=== PATIENT | female | born 1965 | race African-American/Black ===

== ENCOUNTER 2018-10-02 10:16 | Observation (INO) | payer OTHER ==
[2018-10-02 10:48] LABS: BILIRUBIN,URINE NEGATIVE (NEGATIVE); GLUCOSE, URINE (UA) NEGATIVE (NEGATIVE); KETONES,URINE (UA) NEGATIVE (NEGATIVE); LEUKOCYTE ESTERASE, URINE NEGATIVE (NEGATIVE); NITRITE,URINE NEGATIVE (NEGATIVE); OCCULT BLOOD,URINE NEGATIVE (NEGATIVE); PH,URINE 6.5 PH (5.0-7.5); PROTEIN,URINE NEGATIVE (NEGATIVE); UROBILINOGEN,URINE 0.2 (NORMAL) E.U./dL (NORMAL)
[2018-10-02 10:50] LABS: CLARITY,URINE CLEAR (CLEAR)
[2018-10-02 11:36] LABS: BASOPHILS % (AUTO) 0.3 %; EOSINOPHILS # (AUTO) 0.2 10^3/uL (0.0-0.7); EOSINOPHILS % (AUTO) 1.9 %; HGB - HEMOGLOBIN 8.8 g/dL (12.0-16.0); LYMPHOCYTES # (AUTO) 1.2 10^3/uL (1.5-3.5); LYMPHOCYTES % (AUTO) 14.6 %; MEAN CORPUSCULAR HEMOGLOBIN 24.2 pg (27.0-31.0); MEAN CORPUSCULAR HGB CONC 31.5 g/dL (32.0-36.0); MEAN CORPUSCULAR VOLUME 76.8 fL (81.0-99.0); MEAN PLATELET VOLUME 9.5 fL (7.9-10.8); MONOCYTES # (AUTO) 0.8 10^3/uL (0.0-1.0); MONOCYTES % (AUTO) 9.7 %; NEUTROPHILS # (AUTO) 6.2 10^3/uL (1.5-6.6); NEUTROPHILS % (AUTO) 73.5 %; PLT - PLATELET COUNT 260 10^3/uL (130-450); RED BLOOD COUNT 3.62 10^6/uL (4.20-5.40); RED CELL DISTRIBUTION WIDTH 18.6 % (12.0-15.0); WHITE BLOOD COUNT 8.5 x10^3/uL (4.8-10.8)
[2018-10-02 11:52] LABS: ALBUMIN 4.3 g/dL (3.2-5.5); ALBUMIN/GLOBULIN RATIO 1.3 (1.0-2.2); BILIRUBIN,TOTAL 0.5 mg/dL (0.2-1.0); CALCIUM 9.3 mg/dL (8.5-10.3); CREATININE 0.6 mg/dL (0.4-1.0); TOTAL PROTEIN 7.7 g/dL (6.7-8.2)
[2018-10-02] MEDS ORDERED: HYDROmorphone 1 MG/ML CARPUJECT IVP STA ×3 (11:53→16:40)
[2018-10-02] MEDS ORDERED: ONDANSETRON 4 MG/2 ML VIAL IVP STA (11:53)
--- NOTE | 2018-10-02 11:55 | ED Physician Documentation ---
PD HPI ABD PAIN - Stated complaint Stated Complaint: NAUSEA - Chief complaint Chief Complaint: Abd Pain - History obtained from History obtained from: Patient, Family - History of Present Illness Timing - onset: Yesterday Timing - duration: Days (1) Timing - details: Gradual onset, Still present Quality: Sharp, Fullness/distended, Pain Location: All over / everywhere Improved by: Laying still Worsened by: Moving, Breathing, Position, Palpation Associated symptoms: Nausea, Vomiting Similar symptoms before: Diagnosis (systemic sclerosis) Recently seen: Emergency Dept - Additional information Additional information: 52-year-old female with a history of systemic scleroderma has manifestation of her disease mostly in the gastrointestinal tract and she is on chronic TPN. She has episodes of obstruction with development of a significant amount of gas and she is brought a care plan with her from [place]. She usually has an NG tube placed and over several hours will decompress. She relates she usually is able to improve overnight and usually less than 24 hours. She reports that this morning she began vomiting and her stomach rapidly distended. This is very similar to what she has had previously normal she has a flat abdomen and she appears now 9 months . Review of Systems Constitutional: denies: Fever, Chills, Myalgias Eyes: denies: Decreased vision Ears: denies: Ear pain Nose: denies: Rhinorrhea / runny nose, Congestion Throat: denies: Sore throat Cardiac: denies: Chest pain / pressure, Palpitations Respiratory: denies: Dyspnea, Cough GI: reports: Abdominal Pain, Nausea, Vomiting. 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 HEENT: Tonsil/Adenoidectomy - Present Medications Home Medications: Ambulatory Orders Medication Instructions Recorded Confirmed Duloxetine HCl [Cymbalta] 60 mg PO 10/02/18 10/02/18 Gabapentin [Neurontin] 900 mg PO TID 10/02/18 10/02/18 LORazepam [Ativan] 1 mg 10/02/18 Leucovorin Calcium 5 mg PO 10/02/18 Losartan [Cozaar] 25 mg 10/02/18 Methotrexate Sodium/Pf 25 mg 10/02/18 [Methotrexate 25 mg/ml Vial] Prednisone 5 mg PO 10/02/18 amLODIPine [Norvasc] 10 mg 10/02/18 - Allergies Allergies/Adverse Reactions: Allergies Allergy/AdvReac Type Severity Reaction Status Date / Time No Known Drug Allergies Allergy Verified 10/02/18 10:30 - Social History Does the pt smoke?: No Smoking Status: Never smoker Does the pt drink ETOH?: No Does the pt have substance abuse?: No - Immunizations Immunizations are current?: Yes PD ED PE NORMAL - Vitals Vital signs reviewed: Yes (hypertensive ) - General General: Alert and oriented X 3, No acute distress, Well developed/nourished - HEENT HEENT: Atraumatic, PERRL, EOMI - Neck Neck: Supple, no meningeal sign, No bony TTP - Cardiac Cardiac: RRR, No murmur - Respiratory Respiratory: No respiratory distress, Clear bilaterally - Abdomen Abdomen: Other (The abdomen is markedly distended and tender. It is tight. She looks 9 months . ) - Back Back: No CVA TTP, No spinal TTP - Derm Derm: Normal color, Warm and dry, No rash - Extremities Extremities: No deformity, No edema - Neuro Neuro: Alert and oriented X 3, joy operator 2-12 intact, No motor deficit, No sensory deficit, Normal speech Eye Opening: Spontaneous Motor: Obeys Commands Verbal: Oriented GCS Score: 15 - Psych Psych: Normal mood, Normal affect Results - Vitals Vitals: Vital Signs - 24 hr 10/02/18 10/02/18 10/02/18 10:23 12:03 14:07 Temperature 36.6 C Heart Rate 90 84 90 Respiratory 20 16 12 Rate Blood Pressure 150/93 H 141/88 H 128/88 H O2 Saturation 100 100 100 Oxygen O2 Source Room air - Labs Labs: Laboratory Tests 10/02/18 10/02/18 10/02/18 10:30 11:07 11:07 WBC 8.5 RBC 3.62 L Hgb 8.8 L Hct 27.8 L MCV 76.8 L MCH 24.2 L MCHC 31.5 L RDW 18.6 H Plt Count 260 MPV 9.5 Neut # (Auto) 6.2 Lymph # (Auto) 1.2 L [place] # (Auto) 0.8 Eos # (Auto) 0.2 Baso # (Auto) 0.0 Absolute Nucleated RBC 0.00 Nucleated RBC % 0.0 Sodium 133 L Potassium 3.8 Chloride 98 L Carbon Dioxide 26 Anion Gap 9.0 BUN 16 Creatinine 0.6 Estimated GFR (MDRD) 128 Glucose 99 Calcium 9.3 Total Bilirubin 0.5 AST 30 ALT 11 Alkaline Phosphatase 56 Total Protein 7.7 Albumin 4.3 Globulin 3.4 Albumin/Globulin Ratio 1.3 Lipase 26 Urine Color DARK YELLOW Urine Clarity CLEAR Urine pH 6.5 Ur Specific [place] >=1.030 H Urine Protein NEGATIVE Urine Glucose (UA) NEGATIVE Urine Ketones NEGATIVE Urine Occult Blood NEGATIVE Urine Nitrite NEGATIVE Urine Bilirubin NEGATIVE Urine Urobilinogen 0.2 (NORMAL) Ur Leukocyte Esterase NEGATIVE Ur Microscopic Review NOT INDICATED Urine Culture Comments NOT INDICATED PD MEDICAL DECISION MAKING - ED course Complexity details: reviewed results, re-evaluated patient, considered differential, d/w patient, d/w family ED course: 52-year-old female with a history of systemic scleroderma has developed obstructive symptoms previous to what she has had before and similar to what she has had and here in the emergency department we have placed an NG tube to low intermittent suction and she has had some decompression of her abdomen. She is also received some pain medication and nausea medicine and she tells us that this will usually take about 12-15 hours to improve. She would like to stay here at this hospital if possible. Departure - Departure Disposition: ED Place in Observation Clinical Impression: Bowel obstruction Qualifiers: Intestinal obstruction type: obstruction due to adhesions Intestinal obstruction extent: partial Qualified Code(s): K56.51 - Intestinal adhesions [bands], with partial obstruction Condition: Stable
[2018-10-02] MEDS ORDERED: LIDOCAINE JELLY 2% 5 ML TUBE TOP STA (12:16)
[2018-10-02] MEDS ORDERED: HYDROmorphone 0.5 MG/0.5 ML SYRINGE IVP PRN (17:05)
[2018-10-02] MEDS ORDERED: PROCHLORPERAZINE 10 MG/2 ML VIAL IVP PRN (17:05)
[2018-10-02] MEDS ORDERED: D5NS W/20 MEQ KCL 1,000 ML IV SCH ×2 (18:00)
[2018-10-02] MEDS: SODIUM CHLORIDE FLUSH 0.9% 10 ML SYRINGE IVP SCH (18:54)
[2018-10-02] MEDS ORDERED: HYDROmorphone 1 MG/ML CARPUJECT IVP PRN (18:58)
--- NOTE | 2018-10-02 19:41 | XRAY Report ---
Reason: ng tube placement Procedure Date: 10/02/2018 Accession Number: [id number] / [id number] Procedure: XR - Chest 1 View X-Ray CPT Code: 94690 FULL RESULT: EXAM: CHEST RADIOGRAPHY EXAM DATE: 10/02/2018 07:21 PM. CLINICAL HISTORY: NG tube placement. COMPARISON: XR CHEST 1 VIEW AP/PA 09/23/2018 8:19 PM. TECHNIQUE: 1 view. FINDINGS: Lungs/Pleura: Persistent mild vascular congestion. Minimal platelike data steward this right lung base. Normal lung volumes. No pneumothorax. Mediastinum: Stable mild cardiomegaly. Stable right central line tip cavoatrial junction. No tracheal shift. Other: Interval placement of an NG tube with the tip barely in the gastric cardia. The sidehole of the NG tube is at the GE junction. IMPRESSION: 1. Recommend 5 cm further advancement of the NG tube. 2. Mild cardiomegaly. RADIA
--- NOTE | 2018-10-02 20:04 | HISTORY & PHYSICAL EXAMINATION ---
DATE OF SERVICE: 10/02/2018 Physician: Hortencia Leon MD HISTORY OF PRESENT ILLNESS: This is a 52-year-old black female with a history of hypertension, systemic scleroderma and anxiety. 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 She was visiting [facility] to see her brother, plans to be here for 6 days. The patient gets frequent exacerbations of small-bowel obstruction due to her scleroderma, which is mostly affecting her intestinal tract. Because of this, she has a "Morris plan" in place for management of the bowel obstruction, which includes an NG tube for decompression and parenteral management ,and resolution often occurs in 12-15 hours. The patient presented with abdominal pain, nausea, vomiting and rapid distention of her abdomen, which is her typical presentation of the SBO, and she presented to the emergency room. An NG tube has been placed in the ER and she is being put in Observation status for management of the SBO. It usually has improvement in less than 24 hours. PAST MEDICAL HISTORY: Systemic scleroderma, hypertension, anxiety, frequent small bowel obstructions. The patient has a central port, which got infected, she needed a PICC line temporarily and a new port has been placed that she has had for about a month. She is on TPN for about a month, which she infuses herself every 12 hours. ALLERGIES: NONE. MEDICATIONS 1. Amlodipine 10 mg daily. 2. Vitamin D3 daily. 3. Vitamin C daily. 4. Multivitamin with iron daily. 5. Vitamin B12 daily. 6. Theragran vitamin daily. 7. Biotin daily. 8. Senokot daily. 9. MiraLax daily. 10. Losartan 25 mg daily. 11. Ativan 1 mg b.i.d. p.r.n. anxiety. 12. Cymbalta 60 mg daily. 13. Prednisone 5 mg daily. 14. Methotrexate once a week 25 mg subcutaneous. 15. Leucovorin 5 mg p.o. daily. FAMILY HISTORY: No inherited diseases. SOCIAL HISTORY: The patient lives with her son, is currently visiting [facility] and has never been hospitalized in this hospital. The patient is a nonsmoker, who never smoked, drinks no alcohol, uses no illicit drugs. 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 REVIEW OF SYSTEMS: A comprehensive review of systems was performed and the pertinent positives are in the HPI, the rest are negative. PHYSICAL EXAMINATION GENERAL: Black female who is in mild distress currently; however, she states the pain is returning since the IV pain medications are wearing off that were given in the ER. Blood pressure 128/92, pulse 75, afebrile, room air saturation 100%. HEENT: Unremarkable. Oral mucosa is moist. NECK: Without JVD or carotid bruits. LUNGS: Clear. HEART: Sounds normal. ABDOMEN: Distended, moderately tense, has increased tympany and decreased bowel sounds. There is no guarding or rebound. EXTREMITIES: No leg edema. No cyanosis. 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 NEUROLOGIC: Grossly intact. LABORATORY DATA: Sodium 133, potassium 3.8. Normal BUN and creatinine and liver tests and lipase. White count 8.5, hemoglobin 8.8 with MCV of 76, RDW of 18 and normal platelet count of 260. No INR was done. Urinalysis shows specific gravity of greater than 1.030, but otherwise unremarkable. DIAGNOSTIC STUDIES: She had no imaging done or EKG done. IMPRESSION/DIAGNOSES 1. Small-bowel obstruction exacerbation. 2. Systemic scleroderma with mostly intestinal involvement, on Methotrexate and Leucovorin. 3. Hypertension. 4. Anxiety. 5. Anemia, microcytic, on Iron replacement. PLAN: Place the patient in Observation. Begin IV hydration. She may continue her TPN infusions, and will hold the IV fluids while she gets iv TPN for 12 hours. Continue with IV narcotics for pain control and iv antiemetics. Continue with an NG tube for GI decompression, and check its position by x-ray. She knows that after approximately 10-12 hours, we will clamp tube, give some oral fluids and assess if she has any residual or worsening of symptoms. Any medications that can be switched from p.o. to IV will be done, especially her steroid. CODE STATUS: FULL CODE. DEEP VENOUS THROMBOSIS PROPHYLAXIS: SCDs. ATTESTATION: The patient expect to be discharged or transferred to another facility within 96 hours: Yes. cc: Dr Martín Chairez TD: 10/02/2018 19:19 [facility]
[2018-10-02] MEDS: HYDROmorphone 1 MG/ML CARPUJECT IVP PRN ×2 (20:06→22:49)
[2018-10-02] MEDS: SODIUM CHLORIDE FLUSH 0.9% 10 ML SYRINGE IVP PRN ×2 (20:09→22:49)
[2018-10-02] MEDS: FAMOTIDINE 20 MG/50 ML 50 ML IV SCH (21:01)
[2018-10-02] MEDS: LORazepam 2 MG/ML VIAL IVP PRN (22:49)
[2018-10-02] MEDS: PHENOL THROAT SPRAY 177 ML MM PRN (22:50)
--- NOTE | 2018-10-02 23:40 | XRAY Report ---
Reason: ng tube placement Procedure Date: 10/02/2018 Accession Number: [id number] / [id number] Procedure: XR - Chest 1 View X-Ray CPT Code: 17009 FULL RESULT: EXAM: CHEST RADIOGRAPHY EXAM DATE: 10/02/2018 11:20 PM. CLINICAL HISTORY: NG tube placement. COMPARISON: CHEST 1 VIEW 10/02/2018 7:07 PM. TECHNIQUE: 1 view. FINDINGS: Lungs/Pleura: Minimal bibasilar atelectasis, otherwise no focal opacities evident. No pleural effusion. No pneumothorax. Mediastinum: Normal heart size for technique. Other: Stable right IJ line. NG tube advanced into the body of the stomach. IMPRESSION: NG tube advanced to the body of the stomach, otherwise no change. RADIA
[2018-10-03] MEDS: ENALAPRILAT 1.25 MG/ML VIAL IVP SCH ×4 (00:15→19:02)
[2018-10-03] MEDS: SODIUM CHLORIDE FLUSH 0.9% 10 ML SYRINGE IVP PRN ×7 (00:16→19:04)
[2018-10-03] MEDS: HYDROmorphone 1 MG/ML CARPUJECT IVP PRN ×6 (03:17→19:03)
[2018-10-03] MEDS ORDERED: CYANOCOBALAMIN 1,000 MCG/ML VIAL IM ONE (08:00)
[2018-10-03] MEDS ORDERED: POLYETHYLENE GLYCOL 3350 17 GM PACKET PO SCH (09:00)
[2018-10-03] MEDS ORDERED: DEXAMETHASONE 4 MG/ML VIAL IVP SCH (09:00)
[2018-10-03] MEDS ORDERED: ASCORBIC ACID IV SCH (09:00)
[2018-10-03] MEDS ORDERED: METHYLNALTREXONE 12 MG/0.6 ML VIAL SUBQ SCH (09:00)
[2018-10-03] MEDS ORDERED: LEUCOVORIN CALCIUM IV SCH (09:00)
[2018-10-03] MEDS: FAMOTIDINE 20 MG/50 ML 50 ML IV SCH (09:47)
[2018-10-03] MEDS: SODIUM CHLORIDE FLUSH 0.9% 10 ML SYRINGE IVP SCH ×2 (10:16→16:47)
[2018-10-03] MEDS: LORazepam 2 MG/ML VIAL IVP PRN (12:13)
[2018-10-03] MEDS: PHENOL THROAT SPRAY 177 ML MM PRN (12:16)
[2018-10-03] MEDS ORDERED: MIN OIL/DIMETHICON/COCONUT OIL 92 GM TUBE TOP PRN (12:25)
[2018-10-03] MEDS ORDERED: diphenhydrAMINE INJ 50 MG/ML VIAL IVP PRN (12:28)
[2018-10-03 15:43] VITALS: BP 115/70
--- NOTE | 2018-10-03 18:36 | Discharge Plan ---
Discharge Plan Disposition: 01 Home, Self Care Condition: Stable Activity Restrictions: Activity as Tolerated Shower Restrictions: No Driving Restrictions: No Additional Instructions or Follow Up instructions: Please resume all your medications and TPN schedule. Stay well hydrated. If you have new or worsening symptoms, return to the ER. No Smoking: If you smoke, Please STOP! Call for help.
--- NOTE | 2018-10-04 19:47 | DISCHARGE SUMMARY ---
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 The patient was visiting [facility] and developed abdominal pain, distention and presented to the emergency room. She has a history of systemic scleroderma and anxiety. She gets frequent exacerbations of small-bowel obstruction from her intestinal scleroderma and has a plan in place for management of bowel obstruction. She was placed in Observation for treatment of small-bowel obstruction, following her directions and the "Morris plan". HOSPITAL COURSE AND DISCHARGE DIAGNOSES 1. Small-bowel obstruction. The patient had NG tube placement for decompression with intermittent low suction. She described to us that this obstruction usually resolves after 12-15 hours and in fact the NG tube aided in decompressing her abdominal distention and was clamped, and she was able to tolerate liquids and discharged at that point. 2. Systemic scleroderma. The patient has had close followup for worsening and more frequent exacerbations and has the plan in place, which we followed. She no longer is able to eat solid foods, is on TPN via a central port. 3. Hypertension. The patient's p.o. losartan was changed to IV BAUTISTA inhibitor during her brief stay here. LABORATORY AND IMAGING: Reviewed and summarized above. ALLERGIES: NONE. MEDICATIONS AT TIME OF DISCHARGE: Unchanged from admission: 1. Amlodipine 10 mg daily. 2. Vitamin C daily. 3. Biotin. 4. Vitamin D3 daily. 5. Vitamin B12 daily. 6. Cymbalta 60 mg daily. 7. Neurontin 900 mg t.i.d. 8. Iron with vitamin C daily. 9. Leucovorin 5 mg daily. 10. Ativan 1 mg b.i.d. p.r.n. 11. Losartan 25 mg daily. 12. Methotrexate subcutaneous, unknown frequency. 13. Multivitamin daily. 14. MiraLax daily. 15. Prednisone 5 mg daily. 16. Senna b.i.d. CONDITION AT DISCHARGE: Stable. PHYSICAL EXAMINATION: VITAL SIGNS: Blood pressure 115/70, pulse 70, afebrile, room air saturation 100%. HEENT: Unremarkable. NECK: Without JVD or carotid bruits. CHEST: Clear. HEART: Sounds normal. ABDOMEN: Soft, nontender. Normal bowel sounds. EXTREMITIES: No edema. NEUROLOGIC: Intact. FOLLOWUP: She was advised to see her PCP after return back to [place] in several days. Time required to complete this entire discharge, chart review, dictation: 35 minutes. cc: Dr. Martín Chairez, [place], [place] TD: 10/04/2018 18:32 MTDD
== END 2018-10-03 19:40 | disposition home or self-care (01) ==
LOC: ED 10:16 → MS2 17:05
PROVIDERS: ADMIT Internal Medicine; ATTEND Internal Medicine
DX: M34.9 Systemic sclerosis, unspecified (principal); F41.9 Anxiety disorder, unspecified; I10 Essential (primary) hypertension; D50.9 Iron deficiency anemia, unspecified
CPT/HCPCS: 36415; 71045; 80053; 81003; 83690; 85025; 96361; 96365; 96366; 96372; 96375; 96376; 99284; 99285; A6250; A9270; G0378; J1170; J1200; J2060; J2212; J3490; 81001; 87086; 96374

== ENCOUNTER 2021-02-07 23:06 | Observation (INO) | payer OTHER ==
--- NOTE | 2021-02-07 23:28 | ED Physician Documentation ---
PD HPI NVD - Stated complaint Stated Complaint: ABD PX, NAUSEA - Chief complaint Chief Complaint: Abd Pain - History obtained from History obtained from: Patient - History of Present Illness Timing - onset: How many days ago (1) Timing - duration: Days (1 day of initial nausea and bloating of abdomen, decreased output from ileostomy. Has had similar in the past about every 2-3 months. Sometimes will improve with decreased fluids, antiemetics, but regularly will need IV fluids/meds/NG tube and 1-2 days in hospital. Most care at [facility].) Timing - details: Abrupt onset, Still present (bloating and nausea a day, and now vomiting this evening. Feels similar to prior obstruction/pseudo- obstruction.) Associated symptoms: Abdominal pain (with distension), Loss of appetite. No: Fever, Weight loss, Dysuria Contributing factors: Other (got 2nd Pfizer COVID shot 2 weeks ago without problems then.). No: Sick contact, Bad food, Travel, Recent antibiotics Improved by: No: Vomiting Worsened by: Eating Similar symptoms before: Diagnosis (obstruction/pseudoobstruction from scleroderma around intestines, and has had prior subtotal bowel resection due to it. With ileostomy and gets TPN via central line.) Recently seen: Emergency Dept, Admitted (she states similar episodes about every 2-3 months on average. Lives in [place], so most care in that area, [facility] mainly. Has been admitted here 2018 for similar. Has family on [employer], so visits periodically.) Review of Systems Constitutional: denies: Fever, Chills Nose: denies: Rhinorrhea / runny nose, Congestion Throat: denies: Sore throat Cardiac: denies: Chest pain / pressure Respiratory: reports: Cough (mild chronic). denies: Dyspnea GI: reports: Abdominal Pain, Abdominal Swelling, Nausea, Vomiting, Other (decreased to no output from ileostomy today). 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 HEENT: Tonsil/Adenoidectomy - Present Medications Home Medications: Ambulatory Orders Medication Instructions Recorded Confirmed Ascorbic Acid [Vitamin C] 500 mg PO DAILY 10/02/18 02/07/21 Biotin 1,000 mcg PO DAILY 10/02/18 02/07/21 Cholecalciferol [Vitamin D3] 5,000 unit PO DAILY 10/02/18 02/07/21 Cyanocobalamin (Vitamin B-12) 5,000 mcg SL DAILY 10/02/18 02/07/21 [Vitamin B-12] Gabapentin [Neurontin] 900 mg PO 0900,1600,2100 10/02/18 02/07/21 Iron/Vit C/Fructooligosacchard 1 each PO DAILY 10/02/18 02/07/21 [Chewable Iron 30 mg Tablet] LORazepam [Ativan] 1 mg PO BID PRN 10/02/18 02/07/21 Methotrexate Sodium/Pf 25 mg SUBQ SESAY 10/02/18 02/07/21 [Methotrexate 25 mg/ml Vial] Prednisone 5 mg PO DAILY 10/02/18 02/07/21 Folic Acid 1 mg PO DAILY 02/07/21 02/07/21 Omeprazole 20 mg PO DAILY 02/07/21 02/07/21 Ursodiol [Hieu] 250 mg PO DAILY 02/07/21 02/07/21 Venlafaxine HCl [Effexor Xr] 100 mg PO TID 02/07/21 02/07/21 - Allergies Allergies/Adverse Reactions: Allergies Allergy/AdvReac Type Severity Reaction Status Date / Time No Known Drug Allergies Allergy Verified 02/07/21 23:21 - Social History Does the pt smoke?: No Smoking Status: Never smoker Does the pt drink ETOH?: No Does the pt have substance abuse?: No - Immunizations Immunizations are current?: Yes PD ED PE NORMAL - Vitals Vital signs reviewed: Yes - General General: Alert and oriented X 3, No acute distress, Well developed/nourished - HEENT HEENT: Pharynx benign - Neck Neck: Supple, no meningeal sign, No adenopathy - Cardiac Cardiac: RRR, No murmur - Respiratory Respiratory: Clear bilaterally - Abdomen Abdomen: No organomegaly, Other (distended, with moderate general tenderness. No percussion nor rebound tenderness. ). No: Normal bowel sounds (decreased) - Female Female : Deferred - Rectal Rectal: Deferred - Back Back: No CVA TTP - Derm Derm: Normal color, Warm and dry - Extremities Extremities: Normal ROM s pain, No edema, No calf tenderness / cord - Neuro Neuro: Alert and oriented X 3, No motor deficit, Normal speech Results - Vitals Vitals: Vital Signs - 24 hr 02/07/21 02/07/21 02/08/21 23:21 23:24 00:44 Temperature 37.2 C 37.2 C 37.2 C Heart Rate 82 82 80 Respiratory 20 20 16 Rate Blood Pressure 192/113 H 192/113 H 174/110 H O2 Saturation 100 100 100 02/08/21 01:07 Temperature 37.2 C Heart Rate 81 Respiratory 16 Rate Blood Pressure 150/99 H O2 Saturation 100 Oxygen O2 Source Room air - Labs Labs: Laboratory Tests 02/07/21 02/07/21 02/07/21 23:11 23:55 23:55 WBC 8.3 RBC 3.89 L Hgb 11.5 L Hct 37.1 MCV 95.4 MCH 29.6 MCHC 31.0 L RDW 16.1 H Plt Count 211 MPV 10.4 Neut # (Auto) 5.9 Lymph # (Auto) 1.4 L [place] # (Auto) 0.6 Eos # (Auto) 0.3 Baso # (Auto) 0.0 Absolute Nucleated RBC 0.00 Nucleated RBC % 0.0 Sodium 133 L Potassium 7.8 H* Chloride 100 L Carbon Dioxide 24 Anion Gap 9.0 BUN 23 H Creatinine 0.8 Estimated GFR (MDRD) 91 Glucose 512 H* Calcium 9.0 Magnesium 2.5 Total Bilirubin 0.5 AST 25 ALT 15 Alkaline Phosphatase 66 Total Protein 7.0 Albumin 3.8 Globulin 3.2 Albumin/Globulin Ratio 1.2 Lipase 25 Urine Color YELLOW Urine Clarity CLEAR Urine pH 7.0 Ur Specific [place] 1.015 Urine Protein NEGATIVE Urine Glucose (UA) NEGATIVE Urine Ketones NEGATIVE Urine Occult Blood NEGATIVE Urine Nitrite NEGATIVE Urine Bilirubin NEGATIVE Urine Urobilinogen 0.2 (NORMAL) Ur Leukocyte Esterase NEGATIVE Ur Microscopic Review NOT INDICATED Urine Culture Comments NOT INDICATED Serum Ketones 02/08/21 00:29 WBC RBC Hgb Hct MCV MCH MCHC RDW Plt Count MPV Neut # (Auto) Lymph # (Auto) [place] # (Auto) Eos # (Auto) Baso # (Auto) Absolute Nucleated RBC Nucleated RBC % Sodium Potassium 3.8 Chloride Carbon Dioxide Anion Gap BUN Creatinine Estimated GFR (MDRD) Glucose Calcium Magnesium Total Bilirubin AST ALT Alkaline Phosphatase Total Protein Albumin Globulin Albumin/Globulin Ratio Lipase Urine Color Urine Clarity Urine pH Ur Specific [place] Urine Protein Urine Glucose (UA) Urine Ketones Urine Occult Blood Urine Nitrite Urine Bilirubin Urine Urobilinogen Ur Leukocyte Esterase Ur Microscopic Review Urine Culture Comments Serum Ketones NEGATIVE - Rads (name of study) abd/pelvic CT Radiology: Prelim report reviewed (SBO with transition LLQ. NGtube in stomach.), See rad report PD MEDICAL DECISION MAKING - ED course Complexity details: reviewed results (Her pattern if repetitive by history and clinical exam is c/w obstructive process with distension and some pain. Not peritoneal tender. I did not feel imaging needed initially; defer to hospitalist. ), re-evaluated patient, considered differential (Patient with scleroderma and previous subtotal colectomy with ileostomy and TPN presents with recurrence of frequenty repeating obstruction/ pseudoobstruction typically treated with NG tube fluids and pain medicine with typical resolution over a day or 2. She states occurs every 2 to 3 months. Live), d/w patient Departure - Departure Disposition: ED Place in Observation Clinical Impression: Abdominal distension, Bowel obstruction, Acute pseudo-obstruction of bowel, Scleroderma involving bowel Condition: Stable Record reviewed to determine appropriate education?: Yes
[2021-02-07] MEDS ORDERED: SODIUM CHLORIDE 0.9% 1,000 ML IV STA (23:54)
[2021-02-07] MEDS ORDERED: ONDANSETRON 4 MG/2 ML VIAL IVP STA (23:55)
[2021-02-07] MEDS ORDERED: LIDOCAINE VISCOUS 2% 15 ML UDC MM STA (23:55)
[2021-02-07] MEDS ORDERED: HYDROmorphone 2 MG/ML VIAL IVP STA (23:55)
[2021-02-07] MEDS ORDERED: diphenhydrAMINE INJ 50 MG/ML VIAL IVP STA (23:55)
[2021-02-08 00:02] LABS: BASOPHILS % (AUTO) 0.4 %; EOSINOPHILS # (AUTO) 0.3 10^3/uL (0.0-0.7); EOSINOPHILS % (AUTO) 3.8 %; HCT - HEMATOCRIT 37.1 % (37.0-47.0); HGB - HEMOGLOBIN 11.5 g/dL (12.0-16.0); LYMPHOCYTES # (AUTO) 1.4 10^3/uL (1.5-3.5); LYMPHOCYTES % (AUTO) 17.3 %; MEAN CORPUSCULAR HEMOGLOBIN 29.6 pg (27.0-31.0); MEAN CORPUSCULAR VOLUME 95.4 fL (81.0-99.0); MEAN PLATELET VOLUME 10.4 fL (7.9-10.8); MONOCYTES # (AUTO) 0.6 10^3/uL (0.0-1.0); MONOCYTES % (AUTO) 6.9 %; NEUTROPHILS # (AUTO) 5.9 10^3/uL (1.5-6.6); NEUTROPHILS % (AUTO) 71.4 %; PLT - PLATELET COUNT 211 10^3/uL (130-450); RED BLOOD COUNT 3.89 10^6/uL (4.20-5.40); RED CELL DISTRIBUTION WIDTH 16.1 % (12.0-15.0); WHITE BLOOD COUNT 8.3 x10^3/uL (4.8-10.8)
[2021-02-08 00:05] LABS: BILIRUBIN,URINE NEGATIVE (NEGATIVE); GLUCOSE, URINE (UA) NEGATIVE (NEGATIVE); KETONES,URINE (UA) NEGATIVE (NEGATIVE); LEUKOCYTE ESTERASE, URINE NEGATIVE (NEGATIVE); NITRITE,URINE NEGATIVE (NEGATIVE); OCCULT BLOOD,URINE NEGATIVE (NEGATIVE); PROTEIN,URINE NEGATIVE (NEGATIVE); UROBILINOGEN,URINE 0.2 (NORMAL) E.U./dL (NORMAL)
[2021-02-08 00:06] LABS: CLARITY,URINE CLEAR (CLEAR)
[2021-02-08 00:15] LABS: ALBUMIN 3.8 g/dL (3.2-5.5); ALBUMIN/GLOBULIN RATIO 1.2 (1.0-2.2); BILIRUBIN,TOTAL 0.5 mg/dL (0.2-1.0); CREATININE 0.8 mg/dL (0.4-1.0); MAGNESIUM 2.5 mg/dL (1.7-2.8)
[2021-02-08 00:16] LABS: POTASSIUM 7.8 mmol/L (3.5-5.0)
[2021-02-08 00:42] LABS: POTASSIUM 3.8 mmol/L (3.5-5.0)
[2021-02-08] MEDS ORDERED: HYDROmorphone 1 MG/ML CARPUJECT IVP STA (00:46)
[2021-02-08 00:47] LABS: KETONES, SERUM (ACETEST) NEGATIVE (NEGATIVE)
[2021-02-08] MEDS ORDERED: IOVERSOL 320 100 ML VIAL IVP ONE ×2 (01:19→01:44)
[2021-02-08] MEDS ORDERED: PROCHLORPERAZINE 10 MG/2 ML VIAL IVP PRN (02:12)
[2021-02-08] MEDS ORDERED: PROMETHAZINE 25 MG/1 ML VIAL IM PRN (02:12)
--- NOTE | 2021-02-08 02:27 | HISTORY & PHYSICAL EXAMINATION ---
Chief Complaint - Chief Complaint Chief Complaint: nausea, vomiting and abdominal pain History of Present Illness - Admitted From Admitted From:: [facility] ED - History Obtained From Records Reviewed: yes History obtained from: patient - History of Present Illness HPI Comment/Other: Patient is a 55-year-old female With medical history significant for hypertension, anxiety and systemic scleroderma who presented to the ED with intractable/worsening nausea and vomiting and abdominal pain. Her symptoms started about 2 days ago after she attempted to eat a chicken sandwich. She describes her abdominal pain as a feeling of pressure, fullness and cramping. At its worse she is unable to find a comfortable position. She can either sit down or lay down. She has history of systemic scleroderma which has also affected her gastrointestinal tract. In January 2019 she had an intestinal rupture which warranted a total colectomy except for 1 ft of bowel left. She has an ostomy bag in place. As a result she is prone to frequent bouts of chronic p seudoobstruction. She was told after surgery that she would not be able to eat food as it tends to precipitate these episodes. This is also the case with consumption of large amount of liquid. She has a double-lumen port through which she gets TPN infusions every 12 hours. She reported no output in her ostomy bag yesterday. She lives in the [facility] and was visiting her brother and his on [facility]. She arrived today. She has been producing whitish foamy vomitus. She was advised to come to the ED by her family when they noticed how uncomfortable she was in combination with her symptoms not subsiding. Work-up included CT abdomen pelvis which confirmed bowel obstruction. In the ED she had an NG tube placed with almost a liter output of gastric content. She currently rates her pain 7 out of 10 scale. She explains that usually her presentation would warrant an NG tube placement, IV hydration, antiemetics and pain management. Symptoms will typically resolve within 24 hours but at its worse had persisted for a week. She denied chest pain, dyspnea, fever or chills. She was presented for admission for further management. 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 at age 46) Social History Notes: She lives with her son. 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 She denies tobacco use, alcohol use or recreational substance use. - POLST Patient has POLST: No POLST Status: Full Code Meds/Allgy - Home Medications Home Medications: Ambulatory Orders Medication Instructions Recorded Confirmed Ascorbic Acid [Vitamin C] 500 mg PO DAILY 10/02/18 02/07/21 Biotin 1,000 mcg PO DAILY 10/02/18 02/07/21 Cholecalciferol [Vitamin D3] 5,000 unit PO DAILY 10/02/18 02/07/21 Cyanocobalamin (Vitamin B-12) 5,000 mcg SL DAILY 10/02/18 02/07/21 [Vitamin B-12] Gabapentin [Neurontin] 900 mg PO 0900,1600,2100 10/02/18 02/07/21 Iron/Vit C/Fructooligosacchard 1 each PO DAILY 10/02/18 02/07/21 [Chewable Iron 30 mg Tablet] LORazepam [Ativan] 1 mg PO BID PRN 10/02/18 02/07/21 Methotrexate Sodium/Pf 25 mg SUBQ SESAY 10/02/18 02/07/21 [Methotrexate 25 mg/ml Vial] Prednisone 5 mg PO DAILY 10/02/18 02/07/21 Folic Acid 1 mg PO DAILY 02/07/21 02/07/21 Omeprazole 20 mg PO DAILY 02/07/21 02/07/21 Ursodiol [Hieu] 250 mg PO DAILY 02/07/21 02/07/21 Venlafaxine HCl [Effexor Xr] 100 mg PO TID 02/07/21 02/07/21 - Allergies Allergies/Adverse Reactions: Allergies Allergy/AdvReac Type Severity Reaction Status Date / Time No Known Drug Allergies Allergy Verified 02/07/21 23:21 Review of Systems - Constitutional Constitutional: reports: Poor appetite, Other (drowsy). denies: Fatigue, Fever - Eyes Eyes: denies: Pain, Dipolpia - Ears, Nose & Throat Ears, Nose & Throat: denies: Ear pain, Sore throat - Cardiovascular Cariovascular: denies: Irregular heart rate, Palpitations, Chest pain, Edema, Lightheadedness, Syncope, Exertional dyspnea - Respiratory Respiratory: denies: Cough, Sputum production, Wheezing, SOB at rest, SOB with exertion - Gastrointestinal Gastrointestinal: reports: Abdominal pain, Abdominal distention, Nausea, Vomiting, Bloating, Other (ostomy bag in place with some out put) - Genitourinary Genitourinary: denies: Dysuria, Frequency, Urgency, Hematuria - Musculoskeletal Musculoskeletal: denies: Muscle pain, Back pain, Muscle aches, Stiffness - Integumentary Integumentary: reports: Dryness, Other (telangiectasis on face and hand). denies: Pruritis, Lesions - Neurological Neurological: denies: Focal weakness, Headache, Dizziness - Psychiatric Psychiatric: denies: Depression, Anxiety - Endocrine Endocrine: denies: Polyuria, Polydypsia - Hematologic/Lymphatic Hematologic/Lymphatic: denies: Anemia, Bruising, Petechiae Prior Level of Functionality: She is independent of activities of daily living Exam - Vital Signs Vital Signs: Vital Signs x48h Temp Pulse Resp BP Pulse Ox 02/08/21 01:07 37.2 C 81 16 150/99 H 100 02/08/21 00:44 37.2 C 80 16 174/110 H 100 02/07/21 23:24 37.2 C 82 20 192/113 H 100 02/07/21 23:21 37.2 C 82 20 192/113 H 100 - Physical Exam General Appearance: positive: Moderate distress, Severe distress, Other (sleepy but able to maintain conversation) Eyes Bilateral: positive: PERRL, EOMI ENT: positive: Dry mucous membranes, Other (ng tube in place.) Neck: positive: No JVD, Trachea midline Respiratory: positive: Chest non-tender, No respiratory distress, Breath sounds nml. negative: Wheezes, Rales, Rhonchi Cardiovascular: positive: Regular rate & rhythm, No murmur Abdomen: positive: Tenderness, Other (decreased bowel sounds. ostomy bag in place with some liquid output). negative: Guarding, Rebound Back: positive: Nml inspection Skin: positive: Warm, Dry, Other (telangiectasia noted on face and hands. Skin on face appears stretched/ taut). negative: Cyanosis Extremities: positive: Full ROM, Nml appearance, No pedal edema Neurologic/Psychiatric: positive: Oriented x3, Mood/affect nml Conclusion/Plan - Problem List (1) Bowel obstruction Conclusion/Plan: NG tube in place and connected to low intermittent suction. Patient has already had 1 L of gastric output while in the ED. We will continue with NG tube to low intermittent suction. Zofran, Phenergan and Compazine ordered as needed for nausea. Dilaudid ordered IV as needed for pain. CT scan of the abdomen/pelvis confirms bowel obstruction. General Surgery: Dr Cha consulted (2) Scleroderma involving bowel Conclusion/Plan: Patient has undergone extensive work up and was told her condition is progressive. She underwent a colectomy after intestinal rupture in 2019. She has 1 foot of bowel left and an ostomy in place (3) Hypertension Conclusion/Plan: Likely worsened by pain Will manage pain with dilaudid Labetalol ordered prn for SBP greater than 160 - Lab Results Fish Bones: 02/08/21 04:17 02/08/21 04:17 Core Measures - Anticipated LOS I expect patient to be DC'd or transferred within 96 hours.: Yes - DVT/VTE - Prophylaxis VTE/DVT Device ordered at admit?: Yes VTE/DVT Prophylaxis med ordered at admit?: Yes
[2021-02-08] MEDS ORDERED: LABETALOL 20 MG/4 ML SYRINGE IVP PRN (02:46)
[2021-02-08 03:28] LABS: B. PARAPERTUSSIS- RESP PCR PAN NOT DETECTED; B. PERTUSSIS- RESP PCR PANEL NOT DETECTED; C. PNEUMONIAE- RESP PCR PANEL NOT DETECTED; CORONAVIRUS 229E-RESP PCR NOT DETECTED; CORONAVIRUS HKU1-RESP PCR NOT DETECTED; CORONAVIRUS NL63-RESP PCR NOT DETECTED; CORONAVIRUS OC43-RESP PCR NOT DETECTED; HUMAN METAPNEUMOVIRUS NOT DETECTED; INFLUENZA A- RESP PCR PANEL NOT DETECTED; INFLUENZA B - RESP PCR PANEL NOT DETECTED; M. PNEUMONIAE- RESP PCR PANEL NOT DETECTED; PARAINFLUENZA VIRUS 1 NOT DETECTED; PARAINFLUENZA VIRUS 2 NOT DETECTED; PARAINFLUENZA VIRUS 3 NOT DETECTED; PARAINFLUENZA VIRUS 4 NOT DETECTED; RHINOVIRUS/ENTEROVIRUS NOT DETECTED; RSV- RESP PCR PANEL NOT DETECTED; SARS-CoV-2 -RESP PCR PANEL NOT DETECTED
[2021-02-08] MEDS: SODIUM CHLORIDE FLUSH 0.9% 10 ML SYRINGE IVP PRN ×6 (04:21→19:31)
[2021-02-08] MEDS: HYDROmorphone 1 MG/ML CARPUJECT IVP PRN ×6 (04:21→20:26)
[2021-02-08 04:45] LABS: BASOPHILS % (AUTO) 0.3 %; EOSINOPHILS # (AUTO) 0.4 10^3/uL (0.0-0.7); EOSINOPHILS % (AUTO) 5.1 %; HCT - HEMATOCRIT 36.6 % (37.0-47.0); HGB - HEMOGLOBIN 11.4 g/dL (12.0-16.0); LYMPHOCYTES # (AUTO) 1.6 10^3/uL (1.5-3.5); LYMPHOCYTES % (AUTO) 18.8 %; MEAN CORPUSCULAR HEMOGLOBIN 29.5 pg (27.0-31.0); MEAN CORPUSCULAR HGB CONC 31.1 g/dL (32.0-36.0); MEAN CORPUSCULAR VOLUME 94.8 fL (81.0-99.0); MEAN PLATELET VOLUME 10.6 fL (7.9-10.8); MONOCYTES # (AUTO) 0.6 10^3/uL (0.0-1.0); MONOCYTES % (AUTO) 6.5 %; PLT - PLATELET COUNT 206 10^3/uL (130-450); RED BLOOD COUNT 3.86 10^6/uL (4.20-5.40); RED CELL DISTRIBUTION WIDTH 15.9 % (12.0-15.0); WHITE BLOOD COUNT 8.7 x10^3/uL (4.8-10.8)
[2021-02-08 04:52] LABS: CALCIUM 8.7 mg/dL (8.5-10.3); CREATININE 0.8 mg/dL (0.4-1.0); POTASSIUM 4.2 mmol/L (3.5-5.0)
[2021-02-08] MEDS: diphenhydrAMINE INJ 50 MG/ML VIAL IVP PRN ×2 (07:44→19:31)
[2021-02-08] MEDS: SODIUM CHLORIDE FLUSH 0.9% 10 ML SYRINGE IVP SCH ×2 (07:46→17:58)
[2021-02-08] MEDS ORDERED: HYDROmorphone 0.5 MG/0.5 ML SYRINGE IVP ONE (09:11)
--- NOTE | 2021-02-08 09:54 | CT Report ---
PROCEDURE: Abdomen/Pelvis W INDICATIONS: abd distension and vomiting/pain TECHNIQUE: After the administration of intravenous contrast, 5 mm thick sections acquired from the diaphragms to the symphysis. 2.5 mm thick coronal and sagittal reformats were acquired. Optional 10-minute delay ed imaging may be performed from the kidneys to the bladder. For radiation dose reduction, the follo wing was used: automated exposure control, adjustment of mA and/or kV according to patient size. COMPARISON: None FINDINGS: Image quality: Excellent. ABDOMEN: Lung bases: Lung bases demonstrate minimal appearance of groundglass opacity within the bases. Heart size is normal. No pericardial effusion. Inferior ribs are intact. No basal pleural effusions or pneumothorax. Solid organs: Liver is enlarged with steatosis. Gallbladder is contracted but unremarkable. Bilia ry system is non-dilated. Pancreas enhances normally. Spleen is normal in size and enhancement. No adrenal hematomas. Both kidneys enhance normally, without hydronephrosis. Peritoneum and bowel: No free fluid or air. Unenhanced bowel loops demonstrate dilated fluid-filled loops of small bowel with the greatest transverse dimension measuring approximately 62 mm. Transitio n point is suspected to be within the left lower quadrant. Left lower quadrant ostomy site is present as well as right lower quadrant ostomy tract. There appears to be no dilated loops of bowel within the ostomy. Nasogastric tube is present within the stomach. Surgical changes reflecting gastric bypas s are present. Nodes and vessels: No retroperitoneal or mesenteric adenopathy. Aorta and inferior vena cava are no rmal in size and enhancement. Miscellaneous: No ventral hernias. PELVIS: Genitourinary: Bladder wall thickness is normal. Miscellaneous: No inguinal hernias or adenopathy. Bones: Pelvic ring and hip joints appear intact. No vertebral compression fractures. IMPRESSION: 1. Dilated fluid-filled loops of small bowel with suspected transition point in the left lower quadra nt. This could be secondary to internal hernia. 2. Mild groundglass opacities within the bases suggestive of dependent change/atelectasis. Developing airspace disease such as pneumonia cannot be definitively excluded. The above findings are concordant with preliminary report. Reviewed by: Kayleigh Jaramillo MD on 02/08/2021 9:52 AM PDT Approved by: Kayleigh Jaramillo MD on 02/08/2021 9:52 AM PDT Station ID: [id number]
--- NOTE | 2021-02-08 15:29 | PHARMACY PROGRESS NOTE ---
- Best Possible Medication History Admit Date and Time: 02/08/21211 Processed by: Pharmacy Medication History completed: Yes Patient Interview: Completed Secondary Source(s): Pharmacy records, Insurance records Patient also receives home infusion TPN from [facility]. RD states she will call [facility] and verify what TPN formula patient receives at home in order to determine appropriate in-house substitution. As the person ultimately responsible for medication therapy, providers are able to order a medication from an existing home medication list in [facility] via the "Reconcile Routine" prior to Confirmation of that medication by technician support association. [facility] practice is discouraged except when the physician, in their clinical judgment, deems that a medical need exists for a medication without regard to previous use.
--- NOTE | 2021-02-08 16:44 | CONSULTATION NOTE ---
Referring Provider Name of Referring Provider:: MD Nata Consult Date: 02/08/21 Chief Complaint - Chief Complaint Chief Complaint: Bowel obstruction History of Present Illness - Admitted From Admitted From:: ED - History Obtained From Records Reviewed: Providers notes History obtained from: Providers and patient Exam Limitations: None - History of Present Illness HPI Comment/Other: Farooq is a unfortunate lady a 55years who was here in here on would be visiting family when she developed abdominal pain. She has a past medical history that is significant for hypertension, anxiety,prior gastric bypass, and severe systemic scleroderma and has had multiple bowel complications. 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 She is TPN dependent and is able to take only minimal liquids and has been instructed not to eat any food.She reports she has these episodes frequently and they usually resolve after 12 to 24 hours but it can take much longer.This particular episode was precipitated when she attempted to eat a chicken sandwich with her family and friends.She was admitted to the medicine service overnight and had a stent with nearly immediate return of about a liter of fluid. She reports this is usually how it is managed.At present she reports that her pain is tolerable. She says this is her usual course and is nothing new for her.It is notable that her lactic acid was reported as 1 but I do not see hardcopy of that study. CT scan done at the time of admission room was concerning for an internal hernia.I have been consulted regarding the obstruction and the findings of possible internal hernia. 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 at age 46) Social History Notes: She lives with her son. 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 She denies tobacco use, alcohol use or recreational substance use. - POLST Patient has POLST: No POLST Status: Full Code Meds/Allgy - Home Medications Home Medications: Ambulatory Orders Medication Instructions Recorded Confirmed Gabapentin [Neurontin] 900 mg PO 0900,1600,2100 10/02/18 02/07/21 Methotrexate Sodium/Pf 25 mg SUBQ Q7D 10/02/18 02/08/21 [Methotrexate 25 mg/ml Vial] Prednisone 5 mg PO DAILY 10/02/18 02/07/21 Folic Acid 1 mg PO DAILY 02/07/21 02/07/21 Ursodiol [Hieu] 750 mg PO DAILY 02/07/21 02/08/21 Ergocalciferol [Vitamin D2] 50,000 unit PO Q7D 02/08/21 02/08/21 Omeprazole Magnesium 20 mg PO DAILY 02/08/21 02/08/21 Venlafaxine [Effexor] 100 mg PO TID 02/08/21 02/08/21 oxyCODONE [Roxicodone] 10 mg PO BID 02/08/21 02/08/21 - Allergies Allergies/Adverse Reactions: Allergies Allergy/AdvReac Type Severity Reaction Status Date / Time No Known Drug Allergies Allergy Verified 02/07/21 23:21 Review of Systems - Constitutional Constitutional: reports: Fatigue, Poor appetite. denies: Fever, Chills - Gastrointestinal Gastrointestinal: reports: Abdominal pain, Abdominal distention, Nausea, Vomiting, Bile emesis, Bloating Exam - Vital Signs Reviewed Vital Signs: Yes Vital Signs: Vital Signs x48h Temp Pulse Resp BP Pulse Ox 02/08/21 15:40 37.1 C 84 20 134/93 H 97 02/08/21 12:14 36.7 C 80 17 130/87 H 99 - Physical Exam General Appearance: positive: No acute distress, Lethargic Eyes Bilateral: positive: Normal inspection, PERRL ENT: positive: ENT inspection nml Neck: positive: Nml inspection Respiratory: positive: Chest non-tender, No respiratory distress Cardiovascular: positive: Regular rate & rhythm Abdomen: positive: No distention, Tenderness, Abnml bowel sounds, Other (Left lower quadrant ostomy is present with a bag in place. There is no liquid or air content in the bag. She has a right lower quadrant fistula site that is cover ed with a dressing but has yellow scant drainage as well. She has a midline abdominal wound that has healed by secondary intention). negative: Guarding, Rebound Neurologic/Psychiatric: positive: Oriented x3 Conclusion and Plan - Lab Results Laboratory Results 02/08/21 04:17: Sodium 138, Potassium 4.2, Chloride 103, Carbon Dioxide 27, Anion Gap 8.0, BUN 21 H, Creatinine 0.8, Estimated GFR (MDRD) 91, Glucose 83, Calcium 8.7 02/08/21 04:17: WBC 8.7, RBC 3.86 L, Hgb 11.4 L, Hct 36.6 L, MCV 94.8, MCH 29.5, MCHC 31.1 L, RDW 15.9 H, Plt Count 206, MPV 10.6, Neut # (Auto) 6.0, Lymph # (Auto) 1.6, [place] # (Auto) 0.6, Eos # (Auto) 0.4, Baso # (Auto) 0.0, Absolute Nucleated RBC 0.00, Nucleated RBC % 0.0 02/08/21 02:34: Nasal Adenovirus (PCR) NOT DETECTED, Nasal B. parapertussis DNA (PCR) NOT DETECTED, Nasal Coronavir 229E PCR NOT DETECTED, Nasal Coronavir HKU1 PCR NOT DETECTED, Nasal Coronavir NL63 PCR NOT DETECTED, Nasal Coronavir OC43 PCR NOT DETECTED, Nasal Enterovir/Rhinovir PCR NOT DETECTED, Nasal Influenza B PCR NOT DETECTED, Nasal Influenza A PCR NOT DETECTED, Nasal Parainfluen 1 PCR NOT DETECTED, Nasal Parainfluen 2 PCR NOT DETECTED, Nasal Parainfluen 3 PCR NOT DETECTED, Nasal Parainfluen 4 PCR NOT DETECTED, Nasal RSV (PCR) NOT DETECTED, Nasal B.pertussis DNA PCR NOT DETECTED, Nasal C.pneumoniae (PCR) NOT DETECTED, [place] Human Metapneumo PCR NOT DETECTED, Nasal M.pneumoniae (PCR) NOT DETECTED, Nasal SARS-CoV-2 (PCR) NOT DETECTED 02/08/21 00:29: Potassium 3.8, Serum Ketones NEGATIVE 02/07/21 23:55: Sodium 133 L, Potassium 7.8 H*, Chloride 100 L, Carbon Dioxide 24, Anion Gap 9.0, BUN 23 H, Creatinine 0.8, Estimated GFR (MDRD) 91, Glucose 512 H*, Calcium 9.0, Magnesium 2.5, Total Bilirubin 0.5, AST 25, ALT 15, Alkaline Phosphatase 66, Total Protein 7.0, Albumin 3.8, Globulin 3.2, Albumin/Globulin Ratio 1.2, Lipase 25 02/07/21 23:55: WBC 8.3, RBC 3.89 L, Hgb 11.5 L, Hct 37.1, MCV 95.4, MCH 29.6, MCHC 31.0 L, RDW 16.1 H, Plt Count 211, MPV 10.4, Neut # (Auto) 5.9, Lymph # (Auto) 1.4 L, [place] # (Auto) 0.6, Eos # (Auto) 0.3, Baso # (Auto) 0.0, Absolute Nucleated RBC 0.00, Nucleated RBC % 0.0 02/07/21 23:11: Urine Color YELLOW, Urine Clarity CLEAR, Urine pH 7.0, Ur Specific [place] 1.015, Urine Protein NEGATIVE, Urine Glucose (UA) NEGATIVE, Urine Ketones NEGATIVE, Urine Occult Blood NEGATIVE, Urine Nitrite NEGATIVE, Urine Bilirubin NEGATIVE, Urine Urobilinogen 0.2 (NORMAL), Ur Leukocyte Esterase NEGATIVE, Ur Microscopic Review NOT INDICATED, Urine Culture Comments NOT INDICATED - Diagnostic Imaging Results Diagnostic Imaging Results: positive: Final report reviewed Diagnostic Imaging Results Comments: Final Report PT NAME: KRYSTINA BUTTERFIELD MR#: [id number] ADM IN/MS2 AGE: 55 CI DT/TM: 02/08/21 PCP: : 1965 ATT: [facility] , DO SEX: F ORD: Reji Martinez MD EXAM: [id number] CT/ABPEW ([id number]) PROCEDURE: Abdomen/Pelvis W INDICATIONS: abd distension and vomiting/pain TECHNIQUE: After the administration of intravenous contrast, 5 mm thick sections acquired from the diaphragms to the symphysis. 2.5 mm thick coronal and sagittal reformats were acquired. Optional 10-minute delayed imaging may be performed from the kidneys to the bladder. For radiation dose reduction, the following was used: automated exposure control, adjustment of mA and/or kV according to patient size. COMPARISON: None FINDINGS: Image quality: Excellent. ABDOMEN: Lung bases: Lung bases demonstrate minimal appearance of groundglass opacity within the bases. Heart size is normal. No pericardial effusion. Inferior ribs are intact. No basal pleural effusions or pneumothorax. Solid organs: Liver is enlarged with steatosis. Gallbladder is contracted but unremarkable. Biliary system is non-dilated. Pancreas enhances normally. Spleen is normal in size and enhancement. No adrenal hematomas. Both kidneys enhance normally, without hydronephrosis. Peritoneum and bowel: No free fluid or air. Unenhanced bowel loops demonstrate dilated fluid- filled loops of small bowel with the greatest transverse dimension measuring approximately 62 mm. Transition point is suspected to be within the left lower quadrant. Left lower quadrant ostomy site is present as well as right lower quadrant ostomy tract. There appears to be no dilated loops of bowel within the ostomy. Nasogastric tube is present within the stomach. Surgical changes reflecting gastric bypass are present. Nodes and vessels: No retroperitoneal or mesenteric adenopathy. Aorta and inferior vena cava are normal in size and enhancement. Miscellaneous: No ventral hernias. PELVIS: Genitourinary: Bladder wall thickness is normal. Miscellaneous: No inguinal hernias or adenopathy. Bones: Pelvic ring and hip joints appear intact. No vertebral compression fractures. IMPRESSION: 1. Dilated fluid-filled loops of small bowel with suspected transition point in the left lower quadrant. This could be secondary to internal hernia. 2. Mild groundglass opacities within the bases suggestive of dependent change/atelectasis. Developing airspace disease such as pneumonia cannot be definitively excluded. The above findings are concordant with preliminary report. Reviewed by: Kayleigh Jaramillo MD on 02/08/2021 9:52 AM PDT Approved by: Kayleigh Jaramillo MD on 02/08/2021 9:52 AM PDT Station ID: [id number] Mill Manager: [facility] Reading Radiologist: Kayleigh Jaramillo MD Releasing Radiologist: Kayleigh Jaramillo MD Released Date Time: 02/08/21 0952 - Diagnosis Diagnosis: Chronic small bowel obstruction - Plan Plan: This unfortunate lady has a chronic obstruction in the setting of a very hostile abdomen. Fortunately, there is no evidence of ischemia and hopefully this episode will resolve without any intervention. If she should come to surgical intervention, she will need to be transferred to higher level of care. Her prior surgery was done at [facility] in [place].
[2021-02-08] MEDS ORDERED: TPN (CLINIMIX E 5/15) 2,000 ML with MULTIVITAMIN 10 ML IV SCH ×2 (19:00)
[2021-02-08] MEDS ORDERED: METHOTREXATE SODIUM 25 MG/ML SUBQ SCH (20:30)
[2021-02-08] MEDS ORDERED: ERGOCALCIFEROL 50,000 UNIT CAPSULE PO SCH (21:00)
[2021-02-08] MEDS: VENLAFAXINE 37.5 MG TABLET PO SCH (21:30)
[2021-02-08] MEDS: GABAPENTIN 300 MG CAPSULE PO SCH (21:30)
[2021-02-08] MEDS ORDERED: VENLAFAXINE 37.5 MG TABLET PO SCH (22:00)
[2021-02-09] MEDS: HYDROmorphone 1 MG/ML CARPUJECT IVP PRN ×6 (00:19→16:44)
[2021-02-09] MEDS: SODIUM CHLORIDE FLUSH 0.9% 10 ML SYRINGE IVP SCH ×4 (00:19→18:19)
[2021-02-09] MEDS: SODIUM CHLORIDE FLUSH 0.9% 10 ML SYRINGE IVP PRN ×3 (00:20→11:02)
[2021-02-09] MEDS: diphenhydrAMINE INJ 50 MG/ML VIAL IVP PRN ×2 (04:15→11:01)
[2021-02-09 04:44] LABS: BASOPHILS % (AUTO) 0.4 %; EOSINOPHILS # (AUTO) 0.5 10^3/uL (0.0-0.7); EOSINOPHILS % (AUTO) 7.2 %; HCT - HEMATOCRIT 37.1 % (37.0-47.0); HGB - HEMOGLOBIN 11.3 g/dL (12.0-16.0); LYMPHOCYTES # (AUTO) 1.5 10^3/uL (1.5-3.5); LYMPHOCYTES % (AUTO) 21.5 %; MEAN CORPUSCULAR HEMOGLOBIN 29.4 pg (27.0-31.0); MEAN CORPUSCULAR HGB CONC 30.5 g/dL (32.0-36.0); MEAN CORPUSCULAR VOLUME 96.6 fL (81.0-99.0); MEAN PLATELET VOLUME 10.8 fL (7.9-10.8); MONOCYTES # (AUTO) 0.5 10^3/uL (0.0-1.0); MONOCYTES % (AUTO) 6.9 %; NEUTROPHILS # (AUTO) 4.4 10^3/uL (1.5-6.6); NEUTROPHILS % (AUTO) 63.9 %; PLT - PLATELET COUNT 161 10^3/uL (130-450); RED BLOOD COUNT 3.84 10^6/uL (4.20-5.40); RED CELL DISTRIBUTION WIDTH 15.8 % (12.0-15.0); WHITE BLOOD COUNT 6.9 x10^3/uL (4.8-10.8)
[2021-02-09 04:54] LABS: CALCIUM 8.6 mg/dL (8.5-10.3); CREATININE 0.6 mg/dL (0.4-1.0); POTASSIUM 3.4 mmol/L (3.5-5.0)
[2021-02-09] MEDS: VENLAFAXINE 37.5 MG TABLET PO SCH ×2 (05:35→13:50)
[2021-02-09] MEDS: ONDANSETRON 4 MG/2 ML VIAL IVP PRN ×2 (07:56→13:50)
[2021-02-09] MEDS ORDERED: PANTOPRAZOLE 40 MG TABLET PO SCH (09:00)
[2021-02-09] MEDS ORDERED: predniSONE 5 MG TABLET PO SCH (09:00)
[2021-02-09] MEDS ORDERED: FOLIC ACID 1 MG TABLET PO SCH (09:00)
[2021-02-09] MEDS: GABAPENTIN 300 MG CAPSULE PO SCH ×2 (09:18→16:43)
--- NOTE | 2021-02-09 15:10 | Discharge Plan ---
Discharge Plan Problem Reviewed?: Yes Disposition: Home, Self Care Condition: Stable Diet: Soft Activity Restrictions: Activity as Tolerated Health Concerns: You were managed in the hospital for bowel obstruction. By giving your intestines some bowel rest, you have improved. Please continue to advance your diet as tolerated. Resume all your prehospital medications. Plan of Treatment: As above. Care Goals: Improvement in symptoms and stabilization are the goals. Assessment: The patient understands and is agreeable with the plan. Additional Instructions or Follow Up instructions: If you have new or worsening symptoms, call your Provider for advice or come to the ER. No Smoking: If you smoke, Please STOP! Call for help.
--- NOTE | 2021-02-09 17:31 | DISCHARGE SUMMARY ---
Discharge Summary Admit Date: 02/08/21 Discharge Date: 02/09/21 Discharging Provider: Dr Hortencia Leon Primary Care Provider: Dr Martín Palmer Code Status: Attempt Resuscitation Condition at Discharge: Stable Discharge Disposition: 01 Home, Self Care - HPI History of Present Illness: From the admission H&P of Dr Nolan Peace: Patient is a 55-year-old black female With medical history significant for hypertension, anxiety and systemic scleroderma who presented to the ED with intractable/worsening nausea and vomiting and abdominal pain. Her symptoms started about 2 days ago after she attempted to eat a chicken sandwich. She describes her abdominal pain as a feeling of pressure, fullness and cramping. At its worse she is unable to find a comfortable position. She has history of systemic scleroderma which has also affected her gastrointestinal tract. In January 2019 she had an intestinal rupture which warranted a total colectomy except for 1 ft of bowel left. She has an ostomy bag in place. 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 She was told after surgery that she would not be able to eat food as it tends to precipitate these episodes. This is also the case with consumption of large amount of liquid. She has a double-lumen port through which she gets TPN infusions every 12 hours. She reported no output in her ostomy bag yesterday. She lives in the [facility] and was visiting her brother and his on [facility]. She arrived today. She has been producing whitish foamy vomitus. She was advised to come to the ED by her family when they noticed how uncomfortable she was in combination with her symptoms not subsiding. Work-up included CT abdomen pelvis which confirmed bowel obstruction. In the ED she had an NG tube placed with almost a liter output of gastric content. She currently rates her pain 7 out of 10 scale. She explains that usually her presentation would warrant an NG tube placement, IV hydration, antiemetics and pain management. Symptoms will typically resolve within 24 hours but at its worse had persisted for a week. She denied chest pain, dyspnea, fever or chills. She was presented for placement in Observation for further management. - HOSPITAL COURSE Hospital Course: (1) Bowel obstruction CT scan of the abdomen/pelvis confirmed bowel obstruction. NG tube was placed and connected to low intermittent suction for bowel decompression. Patient already had 1 L of gastric output while in the ED. IV fluids and her TPN were continued. She was ordered to receive Zofran, Phenergan and Compazine as needed for nausea, and iv Dilaudid ordered as needed for pain. A General Surgery consult was done by Dr Cha, who stated that if surgery would be needed, the patient would need to be transferred to [facility], because of her complicated GI condition. The patient has had this problem many times previously and told us her symptoms will typically resolve within 24 hours. By the following day here, the NG was clamped, there was no residual, it was removed, clear liquids then a pureed diet were tolerated, and the patient was then discharged home. (2) Scleroderma involving bowel Patient has undergone extensive work up and was told her condition is progressiv e. She underwent extensive bowel surgery after intestinal rupture in 2019. She has 1 foot of bowel left and an ileostomy in place. She knows to take in small frequent meals. (3) Hypertension Likely worsened by her pain, which was managed with dilaudid and iv Labetalol o rdered prn for systolic BP greater than 160. The BP normalized as she improved. - ALLERGIES Allergies/Adverse Reactions: Allergies Allergy/AdvReac Type Severity Reaction Status Date / Time No Known Drug Allergies Allergy Verified 02/07/21 23:21 - MEDICATIONS Home Medications: Ambulatory Orders Medication Instructions Recorded Confirmed Gabapentin [Neurontin] 900 mg PO 0900,1600,2100 10/02/18 02/07/21 Methotrexate Sodium/Pf 25 mg SUBQ Q7D 10/02/18 02/08/21 [Methotrexate 25 mg/ml Vial] Prednisone 5 mg PO DAILY 10/02/18 02/07/21 Folic Acid 1 mg PO DAILY 02/07/21 02/07/21 Ursodiol [Hieu] 750 mg PO DAILY 02/07/21 02/08/21 Ergocalciferol [Vitamin D2] 50,000 unit PO Q7D 02/08/21 02/08/21 Omeprazole Magnesium 20 mg PO DAILY 02/08/21 02/08/21 Venlafaxine [Effexor] 100 mg PO TID 02/08/21 02/08/21 oxyCODONE [Roxicodone] 10 mg PO BID 02/08/21 02/08/21 - PHYSICAL EXAM AT DISCHARGE General Appearance: positive: No acute distress, Alert Eyes Bilateral: positive: Normal inspection, EOMI ENT: positive: ENT inspection nml, No signs of dehydration Neck: positive: Nml inspection, No JVD Respiratory: positive: No respiratory distress Cardiovascular: positive: Regular rate & rhythm Abdomen: positive: Non-tender, Nml bowel sounds, No distention, Other (Has ostomy bag) Skin: positive: Color nml, Other (Taut skin) Extremities: positive: No pedal edema Neurologic/Psychiatric: positive: Oriented x3, Motor nml - LABS Result Diagrams: 02/09/21 04:20 02/09/21 04:20 - DIAGNOSTIC IMAGING Diagnostic Imaging Results: Final report reviewed - FOLLOW UP Follow Up: See PCP and specialists per her routine. - TIME SPENT Time Spent in Discharge (Minutes): 25
[2021-02-09 18:21] VITALS: BP 143/94
[2021-02-10] MEDS ORDERED: URSODIOL 250 MG PO SCH (09:00)
[2021-02-10] MEDS ORDERED: FAT EMULSION 20% 250 ML IV SCH (19:00)
[2021-02-12] MEDS ORDERED: ERGOCALCIFEROL 50,000 UNIT CAPSULE PO SCH (09:00)
== END 2021-02-09 18:30 | disposition home or self-care (01) ==
LOC: ED 23:06 → MS2 02-08 02:12
PROVIDERS: ADMIT Internal Medicine; ATTEND Internal Medicine
DX: K56.609 Unspecified intestinal obstruction, unspecified as to partial versus complete obstruction (principal); M34.9 Systemic sclerosis, unspecified; I10 Essential (primary) hypertension; Z90.49 Acquired absence of other specified parts of digestive tract; Z93.2 Ileostomy status; R91.8 Other nonspecific abnormal finding of lung field
CPT/HCPCS: 0202U; 36415; 43753; 74177; 80048; 80053; 81003; 82009; 83690; 83735; 84132; 85025; 96374; 96375; 96376; 99284; 99285; A9270; G0378; J1170; J1200; J7512; Q9967; 81001; 87086

== ENCOUNTER 2021-02-10 19:48 | Inpatient (IN) | payer OTHER ==
[2021-02-10] MEDS ORDERED: SODIUM CHLORIDE 0.9% 1,000 ML IV STA (21:47)
[2021-02-10] MEDS ORDERED: diphenhydrAMINE INJ 50 MG/ML VIAL IVP STA (21:47)
[2021-02-10] MEDS ORDERED: ONDANSETRON 4 MG/2 ML VIAL IVP STA (21:47)
[2021-02-10] MEDS ORDERED: HYDROmorphone 1 MG/ML CARPUJECT IVP STA (21:47)
--- NOTE | 2021-02-10 21:48 | ED Physician Documentation ---
PD HPI ABD PAIN - Stated complaint Stated Complaint: VOMITING,ABD PX/SWELLING - Chief complaint Chief Complaint: Abd Pain - History obtained from History obtained from: Patient - History of Present Illness Timing - onset: How many days ago (4) Timing - duration: Days (4) Timing - details: Gradual onset, Still present Quality: Sharp, Pain Location: All over / everywhere Improved by: Laying still, Position, Meds Worsened by: Eating, Moving, Position, Palpation Associated symptoms: Nausea, Vomiting Similar symptoms before: Diagnosis (bowel obstruction) Recently seen: Emergency Dept, Admitted - Additional information Additional information: 55-year-old female the history of scleroderma has frequent bowel obstructions related to this and she has had to have admissions every 2 to 3 months for bowel obstruction. She has a protocol provided by [facility] that includes NG tube suction IV fluids and pain medication. She has had a complication in 2019 requiring a removal of significant amount of her intestine and she is currently on TPN. He was admitted into the hospital here 2 nights ago was admitted overnight and she felt improved and insisted on leaving the hospital yesterday afternoon. She states that she realized that she left too soon and her symptoms have not resolved. She has worsening of her symptoms now has vomited on the way to the hospital has abdominal pain and distention similar to what she has had previously. 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 She feels comfortable with admission to [facility] and feels she has been treated here well previously. Surgical consult indicates that if the patient does require surgery she will need transfer. Review of Systems Constitutional: denies: Fever Eyes: denies: Decreased vision Ears: denies: Ear pain Nose: denies: Rhinorrhea / runny nose, Congestion Throat: denies: Sore throat Cardiac: denies: Chest pain / pressure, Palpitations Respiratory: denies: Dyspnea, Cough GI: reports: Abdominal Pain, Nausea, Vomiting : denies: Dysuria, Frequency Skin: denies: Rash Musculoskeletal: denies: Neck pain, Back pain, Extremity pain PD PAST MEDICAL HISTORY - Past Medical History Cardiovascular: Hypertension Respiratory: None Neuro: None Endocrine/Autoimmune: None, Other (scleroderma) GI: Other : None HEENT: None Psych: Anxiety Musculoskeletal: None Derm: Other - Past Surgical History Past Surgical History: Yes General: Bowel surgery, Gastric surgery, Other (total colectomy except for 1ft of bowel) /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 HEENT: Tonsil/Adenoidectomy - Present Medications Home Medications: Ambulatory Orders Medication Instructions Recorded Confirmed Gabapentin [Neurontin] 900 mg PO 0900,1600,2100 10/02/18 02/10/21 Methotrexate Sodium/Pf 25 mg SUBQ Q7D 10/02/18 02/10/21 [Methotrexate 25 mg/ml Vial] Prednisone 5 mg PO DAILY 10/02/18 02/10/21 Folic Acid 1 mg PO DAILY 02/07/21 02/10/21 Ursodiol [Hieu] 750 mg PO DAILY 02/07/21 02/10/21 Ergocalciferol [Vitamin D2] 50,000 unit PO Q7D 02/08/21 02/10/21 Omeprazole Magnesium 20 mg PO DAILY 02/08/21 02/10/21 Venlafaxine [Effexor] 100 mg PO TID 02/08/21 02/10/21 oxyCODONE [Roxicodone] 10 mg PO BID 02/08/21 02/10/21 - Allergies Allergies/Adverse Reactions: Allergies Allergy/AdvReac Type Severity Reaction Status Date / Time No Known Drug Allergies Allergy Verified 02/10/21 19:57 - Social History Does the pt smoke?: No Smoking Status: Never smoker Does the pt drink ETOH?: No Does the pt have substance abuse?: No - Immunizations Immunizations are current?: Yes - POLST Patient has POLST: No POLST Status: Full Code PD ED PE NORMAL - Vitals Vital signs reviewed: Yes (Hypertensive) - General General: Alert and oriented X 3, Well developed/nourished, Other (Patient has an 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, No motor deficit, No sensory deficit, Normal speech Eye Opening: Spontaneous Motor: Obeys Commands Verbal: Oriented GCS Score: 15 - Psych Psych: Normal mood Results - Vitals Vitals: Vital Signs - 24 hr 02/10/21 02/10/21 19:57 21:02 Temperature 36.5 C 36.6 C Heart Rate 80 85 Respiratory 18 16 Rate Blood Pressure 160/100 H 145/94 H O2 Saturation 100 100 Oxygen O2 Source Room air - Labs Labs: Laboratory Tests 02/10/21 02/10/21 02/10/21 22:17 22:24 22:24 WBC 10.1 RBC 4.12 L Hgb 12.1 Hct 38.5 MCV 93.4 MCH 29.4 MCHC 31.4 L RDW 16.0 H Plt Count 225 MPV 10.8 Neut # (Auto) 7.2 H Lymph # (Auto) 1.7 [place] # (Auto) 1.0 Eos # (Auto) 0.1 Baso # (Auto) 0.0 Absolute Nucleated RBC 0.00 Nucleated RBC % 0.0 Sodium 138 Potassium 3.6 Chloride 103 Carbon Dioxide 27 Anion Gap 8.0 BUN 21 H Creatinine 0.7 Estimated GFR (MDRD) 106 Glucose 104 H Calcium 9.4 Total Bilirubin 0.5 AST 21 ALT 16 Alkaline Phosphatase 71 Total Protein 7.3 Albumin 3.9 Globulin 3.4 Albumin/Globulin Ratio 1.1 Lipase 31 Urine Color YELLOW Urine Clarity HAZY Urine pH 8.5 H Ur Specific [place] 1.015 Urine Protein NEGATIVE Urine Glucose (UA) NEGATIVE Urine Ketones NEGATIVE Urine Occult Blood NEGATIVE Urine Nitrite NEGATIVE Urine Bilirubin NEGATIVE Urine Urobilinogen 0.2 (NORMAL) Ur Leukocyte Esterase NEGATIVE Urine RBC None Seen Urine WBC 0-3 Ur Squamous Epith Cells NONE SEEN Amorphous Sediment Rare Urine Bacteria None Seen Ur Microscopic Review INDICATED Urine Culture Comments NOT INDICATED PD MEDICAL DECISION MAKING - ED course Complexity details: reviewed old records, reviewed results, re-evaluated patient, considered differential, d/w patient ED course: 55-year-old female with a history of scleroderma involving her intestine has another pseudoobstruction. She did not have full treatment and left the hospital early from her most recent admission. She admits this freely and admits to being stubborn. She is treated here in the emergency department with an NG tube intravenous saline, Dilaudid, Zofran, and Benadryl. Dr. Denton Fortune is consulted in the case and will admit the patient to the hospital for further care. Departure - Departure Disposition: 66 [facility] DC/Ellie Clinical Impression: Scleroderma, Acute pseudo-obstruction of bowel
[2021-02-10] MEDS ORDERED: ONDANSETRON 4 MG/2 ML VIAL ONE (22:24)
[2021-02-10 22:29] LABS: BILIRUBIN,URINE NEGATIVE (NEGATIVE); GLUCOSE, URINE (UA) NEGATIVE (NEGATIVE); KETONES,URINE (UA) NEGATIVE (NEGATIVE); LEUKOCYTE ESTERASE, URINE NEGATIVE (NEGATIVE); NITRITE,URINE NEGATIVE (NEGATIVE); OCCULT BLOOD,URINE NEGATIVE (NEGATIVE); PH,URINE 8.5 PH (5.0-7.5); PROTEIN,URINE NEGATIVE (NEGATIVE); UROBILINOGEN,URINE 0.2 (NORMAL) E.U./dL (NORMAL)
[2021-02-10 22:30] LABS: CLARITY,URINE HAZY (CLEAR)
[2021-02-10 22:32] LABS: BASOPHILS % (AUTO) 0.2 %; EOSINOPHILS # (AUTO) 0.1 10^3/uL (0.0-0.7); EOSINOPHILS % (AUTO) 1.1 %; HCT - HEMATOCRIT 38.5 % (37.0-47.0); HGB - HEMOGLOBIN 12.1 g/dL (12.0-16.0); LYMPHOCYTES # (AUTO) 1.7 10^3/uL (1.5-3.5); LYMPHOCYTES % (AUTO) 16.4 %; MEAN CORPUSCULAR HEMOGLOBIN 29.4 pg (27.0-31.0); MEAN CORPUSCULAR HGB CONC 31.4 g/dL (32.0-36.0); MEAN CORPUSCULAR VOLUME 93.4 fL (81.0-99.0); MEAN PLATELET VOLUME 10.8 fL (7.9-10.8); NEUTROPHILS # (AUTO) 7.2 10^3/uL (1.5-6.6); PLT - PLATELET COUNT 225 10^3/uL (130-450); RED BLOOD COUNT 4.12 10^6/uL (4.20-5.40); WHITE BLOOD COUNT 10.1 x10^3/uL (4.8-10.8)
[2021-02-10 22:35] LABS: AMORPHOUS SEDIMENT,UR Rare /LPF; BACTERIA,URINE None Seen /HPF (None Seen); RBC,URINE None Seen /HPF (0-5); SQUAMOUS EPITHELIAL CELL,UR NONE SEEN (<= Few); WBC,URINE 0-3 /HPF (0-5)
[2021-02-10 22:44] LABS: ALBUMIN 3.9 g/dL (3.2-5.5); ALBUMIN/GLOBULIN RATIO 1.1 (1.0-2.2); BILIRUBIN,TOTAL 0.5 mg/dL (0.2-1.0); CALCIUM 9.4 mg/dL (8.5-10.3); CREATININE 0.7 mg/dL (0.4-1.0); POTASSIUM 3.6 mmol/L (3.5-5.0); TOTAL PROTEIN 7.3 g/dL (6.7-8.2)
[2021-02-10] MEDS ORDERED: ONDANSETRON ODT 4 MG TABLET TL PRN (22:50)
[2021-02-10] MEDS ORDERED: MORPHINE 2 MG/ML CARPUJECT IVP PRN ×2 (22:50→23:38)
[2021-02-10] MEDS ORDERED: ACETAMINOPHEN 325 MG TABLET PO PRN (22:50)
--- NOTE | 2021-02-10 22:57 | HISTORY & PHYSICAL EXAMINATION ---
Chief Complaint - Chief Complaint Chief Complaint: Abdominal pain History of Present Illness - Admitted From Admitted From:: Home - History Obtained From Records Reviewed: Yes History obtained from: Patient, ER Physician, EMR - History of Present Illness HPI Comment/Other: This is a very pleasant 55-year-old female with a past medical history signif icant for scleroderma and recurrent episodes of bowel obstruction. She was just discharged from our facility yesterday after being admitted for a bowel obstruction. Shew was treated with an NG tube for decompression and pain control. She felt improved and needed to go home to take care of some work and so she was discharged yesterday on February 09. She states that she felt well initially and on her way home, she picked up some gizzards and ice tea. She knows she should not have eaten any food but given how well she was feeling, she decided to eat a little bit. She states that that evening her pain became severe and she had multiple episodes of nonbloody emesis. She could barely sleep through the night due to discomfort. She continued to have episodes of emesis today. Given she had finished her work she needed to do, she decided to come back to the emergency department today due to the ongoing vomiting. She states abdominal pain is about an 8 out of 10. She had associated nausea and vomiting. This feels similar to her prior episodes of obstruction. She has had some output from her ostomy but this is significantly decreased. She feels quite distended and full. Denies any chest pain, dyspnea, dysuria, urgency. In the emergency department, she is found to be hemodynamically stable. Her labs are unremarkable. Given her above presentation, medicine was consulted for admission. 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 Both of her parents in the early 60s. Her mother from renal failure and her father from lung cancer. They were both smokers. Living arrangement: At home Living Situation: With family Social History Notes: She lives in [place], [place]. She is visiting her brother and [id number] here in [place], [place]. 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 She does not smoke or drink alcohol. - POLST Patient has POLST: No POLST Status: Full Code Meds/Allgy - Home Medications Home Medications: Ambulatory Orders Medication Instructions Recorded Confirmed Gabapentin [Neurontin] 900 mg PO 0900,1600,2100 10/02/18 02/10/21 Methotrexate Sodium/Pf 25 mg SUBQ Q7D 10/02/18 02/10/21 [Methotrexate 25 mg/ml Vial] Prednisone 5 mg PO DAILY 10/02/18 02/10/21 Folic Acid 1 mg PO DAILY 02/07/21 02/10/21 Ursodiol [Hieu] 750 mg PO DAILY 02/07/21 02/10/21 Ergocalciferol [Vitamin D2] 50,000 unit PO Q7D 02/08/21 02/10/21 Omeprazole Magnesium 20 mg PO DAILY 02/08/21 02/10/21 Venlafaxine [Effexor] 100 mg PO TID 02/08/21 02/10/21 oxyCODONE [Roxicodone] 10 mg PO BID 02/08/21 02/10/21 - Allergies Allergies/Adverse Reactions: Allergies Allergy/AdvReac Type Severity Reaction Status Date / Time No Known Drug Allergies Allergy Verified 02/10/21 19:57 Review of Systems - Constitutional Constitutional: reports: Poor appetite. denies: Fatigue, Fever, Chills, Weakness - Ears, Nose & Throat Ears, Nose & Throat: denies: Nasal discharge, Postnasal drainage - Cardiovascular Cariovascular: denies: Chest pain, Edema, Exertional dyspnea, Decr. exercise tolerance - Respiratory Respiratory: denies: Cough, SOB at rest, SOB with exertion - Gastrointestinal Gastrointestinal: reports: Abdominal pain, Change in bowel habits, Nausea, Vomiting. denies: Diarrhea - Genitourinary Genitourinary: denies: Dysuria - Integumentary Integumentary: denies: Rash - Neurological Neurological: denies: General weakness, Focal weakness - Hematologic/Lymphatic Hematologic/Lymphatic: denies: Bleeding tendencies - All Other Systems All Other Systems: reports: Reviewed and negative Prior Level of Functionality: She is independent with her ADLs. Exam - Vital Signs Reviewed Vital Signs: Yes Vital Signs: Vital Signs x48h Temp Pulse Resp BP Pulse Ox 02/10/21 19:57 36.5 C 80 18 160/100 H 100 - Physical Exam General Appearance: positive: Alert, Mild distress Eyes Bilateral: positive: Normal inspection, Conjunctivae nml ENT: positive: ENT inspection nml, Other (NG tube in place.) Neck: positive: Nml inspection Respiratory: positive: No respiratory distress. negative: Wheezes Cardiovascular: positive: Regular rate & rhythm, No murmur. negative: Tachycardia, Systolic murmur Abdomen: positive: Tenderness (Predominantly in the left upper and lower quadrants.), Other (Dressing in place over the fistula. Ileostomy noted with minimal output.). negative: Non-tender, No distention Skin: positive: Warm, Dry Extremities: positive: Full ROM, No pedal edema Neurologic/Psychiatric: positive: Oriented x3, Motor nml Conclusion/Plan - Problem List (1) Bowel obstruction Conclusion/Plan: Her presentation is consistent with a small bowel obstruction. We will place an NG tube to low intermittent suction. NPO. Lactated Ringer's for IV fluids. Dilaudid IV as needed for pain control. Zofran IV as needed for nausea. We will repeat an abdominal x-ray in the morning. Continue TPN. General surgery has been consulted and appreciate their input. (2) Scleroderma Conclusion/Plan: She unfortunately has scleroderma with bowel involvement. This is unfortunately progressive and is contributing to her recurrent episodes of bowel obstruction. - Lab Results Lab results reviewed: Yes Fish Bones: 02/10/21 22:24 02/10/21 22:24 Core Measures - Anticipated LOS I expect patient to be DC'd or transferred within 96 hours.: Yes - Issues Hospital Issues and Management Plan: 55-year-old female with history of scleroderma presents with a bowel obstr uction. Will admit for NG tube, pain control, IV fluids. General surgery has been consulted. - DVT/VTE - Prophylaxis VTE/DVT Device ordered at admit?: Yes VTE/DVT Prophylaxis med ordered at admit?: Yes
[2021-02-10] MEDS: LACTATED RINGERS 1,000 ML IV SCH (23:57)
[2021-02-10] MEDS: SODIUM CHLORIDE FLUSH 0.9% 10 ML SYRINGE IVP SCH (23:57)
[2021-02-11] MEDS: SODIUM CHLORIDE FLUSH 0.9% 10 ML SYRINGE IVP SCH ×2 (00:28→03:35)
[2021-02-11] MEDS: HYDROmorphone 1 MG/ML CARPUJECT IVP PRN ×8 (00:28→20:07)
[2021-02-11] MEDS: diphenhydrAMINE INJ 50 MG/ML VIAL IVP PRN (05:32)
[2021-02-11] MEDS: ONDANSETRON 4 MG/2 ML VIAL IVP PRN ×2 (05:32→17:32)
[2021-02-11 07:07] LABS: BASOPHILS % (AUTO) 0.1 %; EOSINOPHILS # (AUTO) 0.3 10^3/uL (0.0-0.7); EOSINOPHILS % (AUTO) 3.2 %; HCT - HEMATOCRIT 34.7 % (37.0-47.0); HGB - HEMOGLOBIN 10.7 g/dL (12.0-16.0); LYMPHOCYTES # (AUTO) 1.8 10^3/uL (1.5-3.5); LYMPHOCYTES % (AUTO) 20.6 %; MEAN CORPUSCULAR HGB CONC 30.8 g/dL (32.0-36.0); MEAN PLATELET VOLUME 9.6 fL (7.9-10.8); MONOCYTES # (AUTO) 0.9 10^3/uL (0.0-1.0); MONOCYTES % (AUTO) 10.2 %; NEUTROPHILS # (AUTO) 5.8 10^3/uL (1.5-6.6); NEUTROPHILS % (AUTO) 65.7 %; PLT - PLATELET COUNT 192 10^3/uL (130-450); RED BLOOD COUNT 3.69 10^6/uL (4.20-5.40); WHITE BLOOD COUNT 8.8 x10^3/uL (4.8-10.8)
[2021-02-11 07:18] LABS: CALCIUM 8.6 mg/dL (8.5-10.3); CREATININE 0.7 mg/dL (0.4-1.0); MAGNESIUM 1.7 mg/dL (1.7-2.8); POTASSIUM 3.6 mmol/L (3.5-5.0)
[2021-02-11] MEDS: LACTATED RINGERS 1,000 ML IV SCH ×2 (09:37→18:47)
--- NOTE | 2021-02-11 10:11 | XRAY Report ---
PROCEDURE: Chest 1 View X-Ray INDICATIONS: NG placement TECHNIQUE: One view of the chest was acquired. COMPARISON: Abdomen pelvis CT, 02/08/2021. Chest radiograph, 10/02/2018 FINDINGS: Surgical changes and devices: A right-sided central line is seen. The tip is obscured, yet it is breanna eved to overlie the right atrium. The tip of the gastric tube is seen overlying the proximal stomach. Lungs and pleura: An incomplete inspiratory result is noted, with low lung volumes and crowding of t he vascular markings. No focal infiltrates are seen. No large pneumothorax or large pleural effusion can be seen. Mediastinum: Mediastinal contours appear normal. Heart size is mildly enlarged. Bones and chest wall: No suspicious bony lesions. Overlying soft tissues appear unremarkable. IMPRESSION: The tip of the gastric tube is seen overlying the proximal stomach. There is a right-sided central line, with the tip overlying the right atrium. Note: No significant discrepancy from the preliminary report. Reviewed by: Siddhartha Nielsen MD on 02/11/2021 9:10 AM SHRAVAN Approved by: Siddhartha Nielsen MD on 02/11/2021 9:10 AM SHRAVAN Station ID: [id number]
--- NOTE | 2021-02-11 10:13 | XRAY Report ---
PROCEDURE: Abdomen 1 View X-Ray INDICATIONS: Follow up obstruction. TECHNIQUE: 1 view of the abdomen were acquired. COMPARISON: Correlation is made with chest radiograph, 02/10/[address], 02/08/2021. FINDINGS: Surgical changes and devices: The tip of the gastric tube is at the superior most aspect of this imag e, overlying the proximal stomach.. Bowel: No pneumoperitoneum. Probable loops of gas-filled small bowel are seen, which measure up to 6 mm. Soft tissues: No masses; visualized solid organ contours appear normal in size. No suspicious abdom inal calcifications. Bones: No suspicious bony abnormalities. IMPRESSION: Continued dilatation of small bowel, which is believed to be improved compared to the pr ior CT. Resolving small bowel obstruction is suspected. Reviewed by: Siddhartha Nielsen MD on 02/11/2021 9:12 AM SHRAVAN Approved by: Siddhartha Nielsen MD on 02/11/2021 9:12 AM SHRAVAN Station ID: [id number]
[2021-02-11] MEDS ORDERED: HYDROmorphone 1 MG/ML CARPUJECT IVP STA (10:19)
[2021-02-11] MEDS ORDERED: ACETAMINOPHEN 1,000 MG/100 ML 100 ML IV PRN (10:21)
[2021-02-11] MEDS: ENOXAPARIN 40 MG/0.4 ML SYRINGE SUBQ SCH (10:31)
--- NOTE | 2021-02-11 12:14 | PROVIDER PROGRESS NOTE ---
Assessment/Plan - Problem List (1) Bowel obstruction Assessment/Plan: Her presentation is consistent with a small bowel obstruction. She has started to pass gas this afternoon. We placed an NG tube to low intermittent suction. Keep NPO except ice chips. Lactated Ringer's for IV fluids. Continue TPN per her schedule. Dilaudid IV as needed for pain control. Zofran IV as needed for nausea. The repeat abdominal x-ray this morning showed small bowel still distended, but less, c/w resolving small bowel obstruction. General Surgery has been consulted and appreciating their input. (2) Scleroderma Assessment/Plan: She unfortunately has scleroderma with bowel involvement. This is unfortunately progressive and is contributing to her recurrent episodes of bowel obstruction. (3) Ileostomy in place Assessment/Plan: As per Hx. (4) Anemia Assessment/Plan: This may be anemia of chronic disease. She has also been hospitalized twice in the last 1 week and has received a lot of IV fluids, therefore poss hemodilutional anemia. We will check B12 and folate levels and iron stores and replace if low. - Current Meds Current Meds: Current Medications Generic Name Dose Route Start Last Admin Trade Name Freq PRN Reason Stop Dose Admin Diphenhydramine HCl 25 mg 02/11/21 00:49 02/11/21 05:32 Diphenhydramine Inj 50 Mg/Ml Vial IVP 25 mg Q6H PRN Administration ITCHING Enoxaparin Sodium 40 mg 02/11/21 09:00 02/11/21 10:31 Enoxaparin 40 Mg/0.4 Ml Syringe SUBQ 40 mg DAILY YVONNE Administration Hydromorphone HCl 1 mg 02/11/21 00:15 02/11/21 09:10 Hydromorphone 1 Mg/Ml Carpuject IVP 1 mg Q2HR PRN Administration PAIN Lactated Ringer's 1,000 mls @ 100 mls/hr 02/10/21 23:00 02/11/21 09:37 Lr IV 100 mls/hr .Q10H YVONNE Administration Ondansetron HCl 4 mg 02/10/21 22:50 02/11/21 05:32 Ondansetron 4 Mg/2 Ml Vial IVP 4 mg Q6HR PRN Administration Nausea / Vomiting Sodium Chloride 10 ml 02/11/21 01:00 02/11/21 03:35 Sodium Chloride Flush 0.9% 10 Ml Syringe IVP 10 ml 0100,0900,1700 [facility] Administration - Lab Result Fish Bone Diagrams: 02/11/21 06:00 02/11/21 06:00 - Additional Planning My Orders: My Active Orders 02/11/21 10:21 Acetaminophen 1,000 mg/100 ml [Ofirmev] 100 ml IV Q6HR Subjective - Subjective Patient Reports: Nausea, Pain Objective Vital Signs: Vital Signs - 24 hr 02/10/21 02/10/21 02/10/21 19:57 21:02 23:00 Temperature 36.5 C 36.6 C 36.5 C Heart Rate 80 85 78 Heart Rate [ Brachial] Respiratory 18 16 16 Rate Blood Pressure 160/100 H 145/94 H 163/93 H Blood Pressure [Right Brachial artery] O2 Saturation 100 100 99 02/10/21 02/11/21 02/11/21 23:45 05:49 08:30 Temperature 37 C 37.0 C 36.8 C Heart Rate Heart Rate [ 77 76 78 Brachial] Respiratory 18 15 16 Rate Blood Pressure Blood Pressure 153/75 H 150/92 H 136/79 H [Right Brachial artery] O2 Saturation 100 99 94 Oxygen O2 Source Room air I&O (Last 24 Hrs): Intake and Output Totals x24h 02/09/21 02/10/21 02/11/21 23:59 23:59 23:59 Intake Total 20 1000 1006.667 Balance 20 1000 1006.667 General: Alert, Oriented x3, Other (Asppears lethargic (after Dilaudid administered0) HEENT: Mucous membr. moist/pink Neck: Supple, No JVD Neuro: Alert, Non Focal Cardiovascular: Regular rate, No murmurs Respiratory: No respiratory distress, Breath sounds nml Abdomen: Soft, Other (Neg bowel sounds, (+) passing gas) Extremities: No edema - Results Results: Laboratory Results WBC 8.8 x10^3/uL (4.8-10.8) 02/11/21 06:00 RBC 3.69 10^6/uL (4.20-5.40) L 02/11/21 06:00 Hgb 10.7 g/dL (12.0-16.0) L 02/11/21 06:00 Hct 34.7 % (37.0-47.0) L 02/11/21 06:00 MCV 94.0 fL (81.0-99.0) 02/11/21 06:00 MCH 29.0 pg (27.0-31.0) 02/11/21 06:00 MCHC 30.8 g/dL (32.0-36.0) L 02/11/21 06:00 RDW 16.0 % (12.0-15.0) H 02/11/21 06:00 Plt Count 192 10^3/uL (130-450) 02/11/21 06:00 MPV 9.6 fL (7.9-10.8) 02/11/21 06:00 Neut # (Auto) 5.8 10^3/uL (1.5-6.6) 02/11/21 06:00 Lymph # (Auto) 1.8 10^3/uL (1.5-3.5) 02/11/21 06:00 [place] # (Auto) 0.9 10^3/uL (0.0-1.0) 02/11/21 06:00 Eos # (Auto) 0.3 10^3/uL (0.0-0.7) 02/11/21 06:00 Baso # (Auto) 0.0 10^3/uL (0.0-0.1) 02/11/21 06:00 Absolute Nucleated RBC 0.00 x10^3/uL 02/11/21 06:00 Nucleated RBC % 0.0 /100WBC 02/11/21 06:00 Sodium 138 mmol/L (135-145) 02/11/21 06:00 Potassium 3.6 mmol/L (3.5-5.0) 02/11/21 06:00 Chloride 106 mmol/L (101-111) 02/11/21 06:00 Carbon Dioxide 27 mmol/L (21-32) 02/11/21 06:00 Anion Gap 5.0 (6-13) L 02/11/21 06:00 BUN 15 mg/dL (6-20) 02/11/21 06:00 Creatinine 0.7 mg/dL (0.4-1.0) 02/11/21 06:00 Estimated GFR (MDRD) 106 (>89) 02/11/21 06:00 Glucose 90 mg/dL (70-100) 02/11/21 06:00 Calcium 8.6 mg/dL (8.5-10.3) 02/11/21 06:00 Magnesium 1.7 mg/dL (1.7-2.8) 02/11/21 06:00 Total Bilirubin 0.5 mg/dL (0.2-1.0) 02/10/21 22:24 AST 21 IU/L (10-42) 02/10/21 22:24 ALT 16 IU/L (10-60) 02/10/21 22:24 Alkaline Phosphatase 71 IU/L (42-121) 02/10/21 22:24 Total Protein 7.3 g/dL (6.7-8.2) 02/10/21 22:24 Albumin 3.9 g/dL (3.2-5.5) 02/10/21 22:24 Globulin 3.4 g/dL (2.1-4.2) 02/10/21 22:24 Albumin/Globulin Ratio 1.1 (1.0-2.2) 02/10/21 22:24 Lipase 31 U/L (22-51) 02/10/21 22:24 Urine Color YELLOW 02/10/21 22:17 Urine Clarity HAZY (CLEAR) 02/10/21 22:17 Urine pH 8.5 PH (5.0-7.5) H 02/10/21 22:17 Ur Specific [place] 1.015 (1.002-1.030) 02/10/21 22:17 Urine Protein NEGATIVE mg/dL (NEGATIVE) 02/10/21 22:17 Urine Glucose (UA) NEGATIVE mg/dL (NEGATIVE) 02/10/21 22:17 Urine Ketones NEGATIVE mg/dL (NEGATIVE) 02/10/21 22:17 Urine Occult Blood NEGATIVE (NEGATIVE) 02/10/21 22:17 Urine Nitrite NEGATIVE (NEGATIVE) 02/10/21 22:17 Urine Bilirubin NEGATIVE (NEGATIVE) 02/10/21 22:17 Urine Urobilinogen 0.2 (NORMAL) E.U./dL (NORMAL) 02/10/21 22:17 Ur Leukocyte Esterase NEGATIVE (NEGATIVE) 02/10/21 22:17 Urine RBC None Seen /HPF (0-5) 02/10/21 22:17 Urine WBC 0-3 /HPF (0-5) 02/10/21 22:17 Ur Squamous Epith Cells NONE SEEN (<= Few) 02/10/21 22:17 Amorphous Sediment Rare /LPF 02/10/21 22:17 Urine Bacteria None Seen /HPF (None Seen) 02/10/21 22:17 Ur Microscopic Review INDICATED 02/10/21 22:17 Urine Culture Comments NOT INDICATED 02/10/21 22:17
--- NOTE | 2021-02-11 12:56 | CONSULTATION NOTE ---
Referring Provider Name of Referring Provider:: MD Grover Consult Date: 02/11/21 History of Present Illness - Admitted From Admitted From:: ED - History Obtained From Exam Limitations: None - History of Present Illness HPI Comment/Other: Historical: Farooq is a unfortunate lady a 55years who was here in here on would be visiting family when she developed abdominal pain. She has a past medical history that is significant for hypertension, anxiety,prior gastric bypass, and severe systemic scleroderma and has had multiple bowel complications. 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 She is TPN dependent and is able to take only minimal liquids and has been instructed not to eat any food.She reports she has these episodes frequently and they usually resolve after 12 to 24 hours but it can take much longer.This particular episode was precipitated when she attempted to eat a chicken sandwich with her family and friends.She was admitted to the medicine service overnight and had a stent with nearly immediate return of about a liter of fluid. She reports this is usually how it is managed.At present she reports that her pain is tolerable. She says this is her usual course and is nothing new for her.It is notable that her lactic acid was reported as 1 but I do not see hardcopy of that study. CT scan done at the time of admission room was concerning for an internal hernia.I have been consulted regarding the obstruction and the findings of possible internal hernia. Markus was discharge on the 24 and did well initially. She reports that nausea and vomiting returned after getting back to her family's home. She presented back to the ED last evening with reassuring labs but recurrent symptoms. She reports she is feeling much better today. She denies pain currently. History - Past Medical History Cardiovascular: reports: Hypertension Respiratory: reports: None Neuro: reports: None Endocrine/Autoimmune: reports: None, Other (Scleroderma) GI: reports: Other : reports: None HEENT: reports: None Psych: reports: Anxiety Musculoskeletal: reports: None Derm: reports: Other Other Past Medical History: Scleraderma - Past Surgical History General: reports: Bowel surgery, Gastric surgery, Other (Total colectomy and 1 foot of small bowel resection.) /MINE CAPTAIN: reports: Tubal ligation HEENT: reports: Tonsil/Adenoidectomy - Family & Social History Family History: Mother: , Renal Disease/Failure, Father: , Cancer, Sister: , Cancer Family History Comment/Other: Her sister at the age of 42 from breast cancer. Both of her parents in the early 60s. Her mother from renal failure and her father from lung cancer. They were both smokers. Living arrangement: At home Living Situation: With family Social History Notes: She lives in [place], [place]. She is visiting her brother and [id number] here in [place], [place]. 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 She does not smoke or drink alcohol. - POLST Patient has POLST: No POLST Status: Full Code Meds/Allgy - Home Medications Home Medications: Ambulatory Orders Medication Instructions Recorded Confirmed Gabapentin [Neurontin] 900 mg PO 0900,1600,2100 10/02/18 02/10/21 Methotrexate Sodium/Pf 25 mg SUBQ Q7D 10/02/18 02/10/21 [Methotrexate 25 mg/ml Vial] Prednisone 5 mg PO DAILY 10/02/18 02/10/21 Folic Acid 1 mg PO DAILY 02/07/21 02/10/21 Ursodiol [Hieu] 750 mg PO DAILY 02/07/21 02/10/21 Ergocalciferol [Vitamin D2] 50,000 unit PO Q7D 02/08/21 02/10/21 Omeprazole Magnesium 20 mg PO DAILY 02/08/21 02/10/21 Venlafaxine [Effexor] 100 mg PO TID 02/08/21 02/10/21 oxyCODONE [Roxicodone] 10 mg PO BID 02/08/21 02/10/21 - Allergies Allergies/Adverse Reactions: Allergies Allergy/AdvReac Type Severity Reaction Status Date / Time No Known Drug Allergies Allergy Verified 02/10/21 19:57 Review of Systems - Constitutional Constitutional: reports: Fatigue - Gastrointestinal Gastrointestinal: reports: Abdominal pain, Abdominal distention, Nausea, Vo miting Exam - Vital Signs Reviewed Vital Signs: Yes Vital Signs: Vital Signs x48h Temp Pulse Resp BP Pulse Ox 02/11/21 08:30 36.8 C 78 16 136/79 H 94 03/27/21 05:49 37.0 C 76 15 150/92 H 99 - Physical Exam General Appearance: positive: No acute distress, Alert Eyes Bilateral: positive: Normal inspection, PERRL, EOMI Respiratory: positive: Chest non-tender, No respiratory distress, Breath sounds nml Cardiovascular: positive: Regular rate & rhythm Abdomen: positive: Tenderness (nelia-umbilical region), Other (Minmial ostomy output. Fistula without drainage currently) Conclusion and Plan - Lab Results Laboratory Results 02/11/21 06:00: Sodium 138, Potassium 3.6, Chloride 106, Carbon Dioxide 27, Anion Gap 5.0 L, BUN 15, Creatinine 0.7, Estimated GFR (MDRD) 106, Glucose 90, Calcium 8.6, Magnesium 1.7 02/11/21 06:00: WBC 8.8, RBC 3.69 L, Hgb 10.7 L, Hct 34.7 L, MCV 94.0, MCH 29.0, MCHC 30.8 L, RDW 16.0 H, Plt Count 192, MPV 9.6, Neut # (Auto) 5.8, Lymph # (Auto) 1.8, [place] # (Auto) 0.9, Eos # (Auto) 0.3, Baso # (Auto) 0.0, Absolute Nucleated RBC 0.00, Nucleated RBC % 0.0 02/10/21 22:24: Sodium 138, Potassium 3.6, Chloride 103, Carbon Dioxide 27, Anion Gap 8.0, BUN 21 H, Creatinine 0.7, Estimated GFR (MDRD) 106, Glucose 104 H, Calcium 9.4, Total Bilirubin 0.5, AST 21, ALT 16, Alkaline Phosphatase 71, Total Protein 7.3, Albumin 3.9, Globulin 3.4, Albumin/Globulin Ratio 1.1, Lipase 31 02/10/21 22:24: WBC 10.1, RBC 4.12 L, Hgb 12.1, Hct 38.5, MCV 93.4, MCH 29.4, MCHC 31.4 L, RDW 16.0 H, Plt Count 225, MPV 10.8, Neut # (Auto) 7.2 H, Lymph # (Auto) 1.7, [place] # (Auto) 1.0, Eos # (Auto) 0.1, Baso # (Auto) 0.0, Absolute Nucleated RBC 0.00, Nucleated RBC % 0.0 02/10/21 22:17: Urine Color YELLOW, Urine Clarity HAZY, Urine pH 8.5 H, Ur Specific [place] 1.015, Urine Protein NEGATIVE, Urine Glucose (UA) NEGATIVE, Urine Ketones NEGATIVE, Urine Occult Blood NEGATIVE, Urine Nitrite NEGATIVE, Urine Bilirubin NEGATIVE, Urine Urobilinogen 0.2 (NORMAL), Ur Leukocyte Esterase NEGATIVE, Urine RBC None Seen, Urine WBC 0-3, Ur Squamous Epith Cells NONE SEEN, Amorphous Sediment Rare, Urine Bacteria None Seen, Ur Microscopic Review INDICATED, Urine Culture Comments NOT INDICATED - Diagnostic Imaging Results Diagnostic Imaging Results Comments: Plain film this AM is relatively improved compared with CT at last admission. - Diagnosis Diagnosis: Recurrent small bowel obstruction - Plan Plan: Continue NGT decompression Continue TPN as per home regimen Obtain prior surgical pathology
[2021-02-11] MEDS: SODIUM CHLORIDE FLUSH 0.9% 10 ML SYRINGE IVP PRN ×3 (17:33→21:40)
[2021-02-11] MEDS ORDERED: PROCHLORPERAZINE 10 MG/2 ML VIAL IVP PRN (20:38)
[2021-02-12] MEDS: SODIUM CHLORIDE FLUSH 0.9% 10 ML SYRINGE IVP SCH ×4 (00:25→23:32)
[2021-02-12] MEDS: HYDROmorphone 1 MG/ML CARPUJECT IVP PRN ×9 (00:25→21:32)
[2021-02-12] MEDS: diphenhydrAMINE INJ 50 MG/ML VIAL IVP PRN ×3 (00:33→17:27)
[2021-02-12] MEDS: LACTATED RINGERS 1,000 ML IV SCH ×2 (04:35→14:24)
[2021-02-12 07:26] LABS: BASOPHILS % (AUTO) 0.3 %; EOSINOPHILS # (AUTO) 0.3 10^3/uL (0.0-0.7); EOSINOPHILS % (AUTO) 3.9 %; HCT - HEMATOCRIT 33.2 % (37.0-47.0); HGB - HEMOGLOBIN 10.2 g/dL (12.0-16.0); LYMPHOCYTES # (AUTO) 1.4 10^3/uL (1.5-3.5); LYMPHOCYTES % (AUTO) 20.5 %; MEAN CORPUSCULAR HEMOGLOBIN 28.8 pg (27.0-31.0); MEAN CORPUSCULAR HGB CONC 30.7 g/dL (32.0-36.0); MEAN CORPUSCULAR VOLUME 93.8 fL (81.0-99.0); MEAN PLATELET VOLUME 10.8 fL (7.9-10.8); MONOCYTES # (AUTO) 0.8 10^3/uL (0.0-1.0); MONOCYTES % (AUTO) 12.3 %; NEUTROPHILS # (AUTO) 4.2 10^3/uL (1.5-6.6); NEUTROPHILS % (AUTO) 62.7 %; PLT - PLATELET COUNT 177 10^3/uL (130-450); RED BLOOD COUNT 3.54 10^6/uL (4.20-5.40); WHITE BLOOD COUNT 6.7 x10^3/uL (4.8-10.8)
[2021-02-12 09:17] LABS: CALCIUM 8.8 mg/dL (8.5-10.3); CREATININE 0.7 mg/dL (0.4-1.0); MAGNESIUM 1.6 mg/dL (1.7-2.8)
[2021-02-12] MEDS: GABAPENTIN 300 MG CAPSULE PO SCH ×3 (09:22→21:30)
[2021-02-12] MEDS: ENOXAPARIN 40 MG/0.4 ML SYRINGE SUBQ SCH (09:22)
[2021-02-12] MEDS: predniSONE 5 MG TABLET PO SCH (09:22)
[2021-02-12] MEDS: ONDANSETRON 4 MG/2 ML VIAL IVP PRN ×2 (10:18→17:28)
[2021-02-12] MEDS: SODIUM CHLORIDE FLUSH 0.9% 10 ML SYRINGE IVP PRN ×3 (10:53→21:38)
--- NOTE | 2021-02-12 11:37 | PROVIDER PROGRESS NOTE ---
Assessment/Plan - Problem List (1) Bowel obstruction Assessment/Plan: She is clinically improving very slowly. Plan the clear liquid diet for 24 hours, which started today at noon, then will advance as tolerated. Ng will clamp and remove if minimal residual. I reviewed in detail what her usual diet is and at the most she only eats pured food. She still requires narcotics for pain control and some antiemetics for symptoms. Continue with IV fluids. We will reorder her usual TPN as well. (2) Hypokalemia Assessment/Plan: Related to losses and vomiting and inadequate peripheral IV replacement of potassium Will replace with iv Riders. Follow BMP daily. (3) Scleroderma Assessment/Plan: As per Hx (4) Ileostomy in place Assessment/Plan: There is better output through this, her obstruction is resolving (5) Anemia Qualifiers: Anemia type: iron deficiency Assessment/Plan: Her B12 and folate levels are good, iron levels are low. Because of the bowel that is eliminated from prior surgery, unsure if she can a bsorb iron. Will give IV iron. Follow CBC daily, transfuse if hemoglobin under 7. - Current Meds Current Meds: Current Medications Generic Name Dose Route Start Last Admin Trade Name Freq PRN Reason Stop Dose Admin Diphenhydramine HCl 25 mg 02/11/21 00:49 02/12/21 00:33 Diphenhydramine Inj 50 Mg/Ml Vial IVP 25 mg Q6H PRN Administration ITCHING Enoxaparin Sodium 40 mg 02/11/21 09:00 02/12/21 09:22 Enoxaparin 40 Mg/0.4 Ml Syringe SUBQ 40 mg DAILY YVONNE Administration Gabapentin 900 mg 02/12/21 09:00 02/12/21 09:22 Gabapentin 300 Mg Capsule PO 900 mg 0900,1600,2100 YVONNE Administration Heparin Sodium (Beef Lung) 30 - 50 unit 02/11/21 17:41 02/11/21 20:06 Heparin Flush 50 Units/5 Ml Syringe IVP 50 unit PRN PRN Administration Port Protocol (<24 hours) Hydromorphone HCl 2 mg 02/11/21 13:01 02/12/21 10:19 Hydromorphone 1 Mg/Ml Carpuject IVP 2 mg Q2HR PRN Administration PAIN Lactated Ringer's 1,000 mls @ 100 mls/hr 02/10/21 23:00 02/12/21 04:35 Lr IV 100 mls/hr .Q10H YVONNE Administration Acetaminophen 100 mls @ 400 mls/hr 02/11/21 10:21 02/11/21 13:10 Ofirmev IV 02/12/21 12:00 Infused Q6HR PRN Infusion PAIN Ondansetron HCl 4 mg 02/10/21 22:50 02/12/21 10:18 Ondansetron 4 Mg/2 Ml Vial IVP 4 mg Q6HR PRN Administration Nausea / Vomiting Prednisone 5 mg 02/12/21 09:00 02/12/21 09:22 Prednisone 5 Mg Tablet PO 5 mg DAILY YVONNE Administration Prochlorperazine Edisylate 10 mg 02/11/21 20:38 02/11/21 21:40 Prochlorperazine 10 Mg/2 Ml Vial IVP 10 mg Q6HR PRN Administration Nausea / Vomiting Sodium Chloride 10 ml 02/10/21 22:50 02/11/21 21:40 Sodium Chloride Flush 0.9% 10 Ml Syringe IVP 10 ml PRN PRN Administration NEEDED PER PROVIDER ORDERS Sodium Chloride 10 ml 02/11/21 01:00 02/12/21 08:20 Sodium Chloride Flush 0.9% 10 Ml Syringe IVP 10 ml 0100,0900,1700 YVONNE Administration - Lab Result Fish Bone Diagrams: 02/12/21 06:50 02/12/21 06:50 - Additional Planning My Orders: My Active Orders 02/11/21 10:21 Acetaminophen 1,000 mg/100 ml [Ofirmev] 100 ml IV Q6HR 02/11/21 13:01 HYDROmorphone 1MG CARP [Dilaudid Inj Carp] 2 mg IVP Q2HR PRN 02/11/21 17:41 Heparin Flush [Heparin Sodium] 30 - 50 unit IVP PRN PRN 02/12/21 09:00 Gabapentin [Neurontin] 900 mg PO 0900,1600,2100 predniSONE [Deltasone] 5 mg PO DAILY 02/12/21 Lunch Clear Liquid Diet [DIET] 02/12/21 14:00 Venlafaxine [Effexor] 75 mg PO TID Subjective - Subjective Patient Reports: Feeling Better Nursing Reports: Vomitting (She vomited 100 cc after swallowing water with some of her meds this morning, so far OK with first clear liquids given for lunch.), Other (Increased intestinal output in her ostomy bag, compared to yesterday) Objective Vital Signs: Vital Signs - 24 hr 02/11/21 02/12/21 02/12/21 15:40 00:31 08:28 Temperature 37.1 C 36.5 C 36.9 C Heart Rate [ 78 75 77 Brachial] Respiratory 16 16 18 Rate Blood Pressure 120/82 H 162/92 H 144/79 H [Right Brachial artery] O2 Saturation 99 99 97 Oxygen O2 Source Room air I&O (Last 24 Hrs): Intake and Output Totals x24h 02/10/21 02/11/21 02/12/21 23:59 23:59 23:59 Intake Total 1000 2431.667 671.667 Output Total 778 2100 Balance 1000 1653.667 -1428.333 General: Alert, Oriented x3 HEENT: Mucous membr. moist/pink, Other (NG tube in place, is clamped) Neck: Supple, No JVD Neuro: Alert, Non Focal Cardiovascular: Regular rate Respiratory: No respiratory distress Abdomen: Soft, Other (Diminished bowel sounds) Extremities: No edema - Results Results: Laboratory Results WBC 6.7 x10^3/uL (4.8-10.8) 02/12/21 06:50 RBC 3.54 10^6/uL (4.20-5.40) L 02/12/21 06:50 Hgb 10.2 g/dL (12.0-16.0) L 02/12/21 06:50 Hct 33.2 % (37.0-47.0) L 02/12/21 06:50 MCV 93.8 fL (81.0-99.0) 02/12/21 06:50 MCH 28.8 pg (27.0-31.0) 02/12/21 06:50 MCHC 30.7 g/dL (32.0-36.0) L 02/12/21 06:50 RDW 16.0 % (12.0-15.0) H 02/12/21 06:50 Plt Count 177 10^3/uL (130-450) 02/12/21 06:50 MPV 10.8 fL (7.9-10.8) 02/12/21 06:50 Neut # (Auto) 4.2 10^3/uL (1.5-6.6) 02/12/21 06:50 Lymph # (Auto) 1.4 10^3/uL (1.5-3.5) L 02/12/21 06:50 [place] # (Auto) 0.8 10^3/uL (0.0-1.0) 02/12/21 06:50 Eos # (Auto) 0.3 10^3/uL (0.0-0.7) 02/12/21 06:50 Baso # (Auto) 0.0 10^3/uL (0.0-0.1) 02/12/21 06:50 Absolute Nucleated RBC 0.00 x10^3/uL 02/12/21 06:50 Nucleated RBC % 0.0 /100WBC 02/12/21 06:50 Sodium 140 mmol/L (135-145) 02/12/21 06:50 Potassium 3.0 mmol/L (3.5-5.0) L 02/12/21 06:50 Chloride 105 mmol/L (101-111) 02/12/21 06:50 Carbon Dioxide 27 mmol/L (21-32) 02/12/21 06:50 Anion Gap 8.0 (6-13) 02/12/21 06:50 BUN 9 mg/dL (6-20) 02/12/21 06:50 Creatinine 0.7 mg/dL (0.4-1.0) 02/12/21 06:50 Estimated GFR (MDRD) 106 (>89) 02/12/21 06:50 Glucose 75 mg/dL (70-100) 02/12/21 06:50 Calcium 8.8 mg/dL (8.5-10.3) 02/12/21 06:50 Magnesium 1.6 mg/dL (1.7-2.8) L 02/12/21 06:50 Iron 23 ug/dL (28-170) L 02/12/21 06:50 TIBC 293 ug/dL (250-450) 02/12/21 06:50 % Saturation 8 % (20-50) L 02/12/21 06:50 Transferrin 209 mg/dL (192-382) 02/12/21 06:50 Total Bilirubin 0.5 mg/dL (0.2-1.0) 02/10/21 22:24 AST 21 IU/L (10-42) 02/10/21 22:24 ALT 16 IU/L (10-60) 02/10/21 22:24 Alkaline Phosphatase 71 IU/L (42-121) 02/10/21 22:24 Total Protein 7.3 g/dL (6.7-8.2) 02/10/21 22:24 Albumin 3.9 g/dL (3.2-5.5) 02/10/21 22:24 Globulin 3.4 g/dL (2.1-4.2) 02/10/21 22:24 Albumin/Globulin Ratio 1.1 (1.0-2.2) 02/10/21 22:24 Lipase 31 U/L (22-51) 02/10/21 22:24 Vitamin B12 687 pg/mL (180-914) 02/12/21 06:50 Folate 31.00 ng/mL (5.90 - >24.8) 02/12/21 06:50 Urine Color YELLOW 02/10/21 22:17 Urine Clarity HAZY (CLEAR) 02/10/21 22:17 Urine pH 8.5 PH (5.0-7.5) H 02/10/21 22:17 Ur Specific [place] 1.015 (1.002-1.030) 02/10/21 22:17 Urine Protein NEGATIVE mg/dL (NEGATIVE) 02/10/21 22:17 Urine Glucose (UA) NEGATIVE mg/dL (NEGATIVE) 02/10/21 22:17 Urine Ketones NEGATIVE mg/dL (NEGATIVE) 02/10/21 22:17 Urine Occult Blood NEGATIVE (NEGATIVE) 02/10/21 22:17 Urine Nitrite NEGATIVE (NEGATIVE) 02/10/21 22:17 Urine Bilirubin NEGATIVE (NEGATIVE) 02/10/21 22:17 Urine Urobilinogen 0.2 (NORMAL) E.U./dL (NORMAL) 02/10/21 22:17 Ur Leukocyte Esterase NEGATIVE (NEGATIVE) 02/10/21 22:17 Urine RBC None Seen /HPF (0-5) 02/10/21 22:17 Urine WBC 0-3 /HPF (0-5) 02/10/21 22:17 Ur Squamous Epith Cells NONE SEEN (<= Few) 02/10/21 22:17 Amorphous Sediment Rare /LPF 02/10/21 22:17 Urine Bacteria None Seen /HPF (None Seen) 02/10/21 22:17 Ur Microscopic Review INDICATED 02/10/21 22:17 Urine Culture Comments NOT INDICATED 02/10/21 22:17 Coronavirus (PCR) NEGATIVE 02/10/21 22:15
[2021-02-12] MEDS: POTASSIUM CHLOR 10 MEQ/100 ML 10 MEQ/100 ML BAG IV SCH ×4 (13:25→18:13)
[2021-02-12] MEDS: VENLAFAXINE 37.5 MG TABLET PO SCH ×2 (14:03→21:30)
[2021-02-12] MEDS ORDERED: METHOTREXATE SODIUM 25 MG/ML SUBQ SCH (14:30)
--- NOTE | 2021-02-12 16:15 | PROVIDER PROGRESS NOTE ---
Progress Note Subjective Extensive surgical history: 1. Maikel-en-Y gastric bypass 2. Recurrent multiple small bowel obstructions 3. Diagnosed with rare connective tissue/autoimmune disease at [facility] 4. Acute abdominal presentation necessitating resection and stoma for diversion 5. TPN dependent with persistent recurrent small bowel obstructions in the interim Objective General Appearance: positive: No acute distress Eyes Bilateral: positive: Normal inspection ENT: positive: ENT inspection nml Neck: positive: Nml inspection Respiratory: positive: Chest non-tender, No respiratory distress, Breath sounds nml. negative: Wheezes, Rales, Rhonchi Cardiovascular: positive: Regular rate & rhythm Extremities: positive: Non-tender, Full ROM, Nml appearance Neurologic/Psychiatric: positive: Oriented x3, CN's nml (2-12) Abdomen mildly tender, bilateral stomas, no rebound or guarding Imaging: My review of imaging reveals the patient has had what looks like a gastric bypass with an intact colon. It seems the patient has some stoma for which it is uncertain to what degree this is an epithelialized fistula x2 versus matured bowel. The remainder of the imaging report from the patient's February 08 CAT scan is as follows -dilated fluid-filled loops of small bowel with suspected transition point in the left lower quadrant. This could be secondary to internal herniation.; Mild groundglass opacities within the bases suggestive of dependent change/atelectasis. Developing airspace disease such as pneumonia cannot be definitively excluded. Surgical changes reflecting gastric bypass are present. Impression/Plan 55-year old female with complex surgical history to include gastric bypass amongst others who presents with what is reported as short gut and chronic TPN however is uncertain to what degree she indeed has short gut as there appears to be more than 100 cm of small bowel intact as well as an intact colon as well. It is uncertain if the patient has ever been a candidate for Gattex for short gut as well. It is uncertain to what degree the patient has been evaluated surgically and what her definitive pathology is as well. However she does indeed present with small bowel obstruction and continues with conservative nonoperative management. Will defer to discussion with her historic claims attorney however I believe the patient needs her pathology sent back to [facility] for reevaluation and consider for jew of bowel continuity at a quaternary referral center such as [facility] or [facility].
[2021-02-12] MEDS ORDERED: IRON DEXTRAN 1,000 MG in SODIUM CHLORIDE 0.9% 250 ML IV ONE (16:20)
[2021-02-13] MEDS: HYDROmorphone 1 MG/ML CARPUJECT IVP PRN ×9 (01:22→22:30)
[2021-02-13] MEDS: diphenhydrAMINE INJ 50 MG/ML VIAL IVP PRN ×4 (01:22→20:26)
[2021-02-13] MEDS: ONDANSETRON 4 MG/2 ML VIAL IVP PRN ×2 (01:24→09:06)
[2021-02-13] MEDS: LACTATED RINGERS 1,000 ML IV SCH ×2 (01:25→11:54)
[2021-02-13] MEDS ORDERED: KETOROLAC 15 MG/ML VIAL IVP PRN (02:16)
[2021-02-13] MEDS ORDERED: HYDROmorphone 1 MG/ML CARPUJECT IVP STA (02:16)
[2021-02-13] MEDS: SODIUM CHLORIDE FLUSH 0.9% 10 ML SYRINGE IVP PRN ×3 (02:28→17:55)
[2021-02-13] MEDS: VENLAFAXINE 37.5 MG TABLET PO SCH ×3 (05:20→22:30)
[2021-02-13 05:21] LABS: BASOPHILS % (AUTO) 0.2 %; EOSINOPHILS # (AUTO) 0.3 10^3/uL (0.0-0.7); EOSINOPHILS % (AUTO) 3.4 %; HCT - HEMATOCRIT 36.5 % (37.0-47.0); HGB - HEMOGLOBIN 11.3 g/dL (12.0-16.0); LYMPHOCYTES # (AUTO) 1.8 10^3/uL (1.5-3.5); LYMPHOCYTES % (AUTO) 21.5 %; MEAN CORPUSCULAR HEMOGLOBIN 29.7 pg (27.0-31.0); MEAN CORPUSCULAR VOLUME 95.8 fL (81.0-99.0); MEAN PLATELET VOLUME 10.1 fL (7.9-10.8); MONOCYTES % (AUTO) 11.6 %; NEUTROPHILS # (AUTO) 5.4 10^3/uL (1.5-6.6); NEUTROPHILS % (AUTO) 63.1 %; PLT - PLATELET COUNT 208 10^3/uL (130-450); RED BLOOD COUNT 3.81 10^6/uL (4.20-5.40); RED CELL DISTRIBUTION WIDTH 15.8 % (12.0-15.0); WHITE BLOOD COUNT 8.5 x10^3/uL (4.8-10.8)
[2021-02-13 05:29] LABS: CALCIUM 9.1 mg/dL (8.5-10.3); CREATININE 0.7 mg/dL (0.4-1.0); MAGNESIUM 1.7 mg/dL (1.7-2.8); POTASSIUM 3.5 mmol/L (3.5-5.0)
[2021-02-13] MEDS: predniSONE 5 MG TABLET PO SCH (08:48)
[2021-02-13] MEDS: ENOXAPARIN 40 MG/0.4 ML SYRINGE SUBQ SCH (08:48)
[2021-02-13] MEDS: SODIUM CHLORIDE FLUSH 0.9% 10 ML SYRINGE IVP SCH ×2 (08:48→15:39)
[2021-02-13] MEDS: GABAPENTIN 300 MG CAPSULE PO SCH ×3 (08:48→20:26)
[2021-02-13] MEDS ORDERED: DEXTROSE 50% ABBOJECT 25 GM/50 ML SYRINGE IVP ONE (11:11)
[2021-02-13] MEDS ORDERED: DEXTROSE 50% ABBOJECT 25 GM/50 ML SYRINGE ONE (11:25)
[2021-02-13] MEDS: FOLIC ACID 1 MG TABLET PO SCH (11:54)
[2021-02-13] MEDS: MULTIVITAMIN IV SCH ×3 (13:14)
[2021-02-13] MEDS: TRACE ELEMENTS IV SCH ×3 (13:14)
[2021-02-13] MEDS: DEXTROSE 5%-LACTATED RINGERS 1,000 ML IV SCH (13:14)
[2021-02-13] MEDS: TPN IV SCH ×3 (13:14)
[2021-02-13] MEDS: HYDROCORTISONE SUCCINATE 100 MG/2 ML VIAL IVP SCH ×2 (14:38→22:30)
--- NOTE | 2021-02-13 15:21 | PROVIDER PROGRESS NOTE ---
Assessment/Plan - Problem List (1) Bowel obstruction Assessment/Plan: She has better output in the ileostomy bag and slightly less pain. She is tolerating clear liquids fine. She wants to try pureed foods later tonight. Appreciate Gen Surg following along with us. (2) Hypoglycemia Assessment/Plan: She was hypoglycemic in the 40's-60's all afternoon, despite D50 1 amp and D5 in her iv and 15%D in her TPN, started this afternoon. No exogenous Insulin or oral Sulfonylurea were administered, I spoke to pharmacy. A serum glucose level and C-peptide were ordered, to check for Insulinoma. She had been on Prednisone 5 mg daily, per her Reconciled med list, therefore she may be [place], since she got no stress dose steroids, as the cause of this prolonged hypoglycemia. Hydrocortisone iv tid has been started this afternoon, as stress dose steroids. (3) Hypokalemia Assessment/Plan: Replace with iv riders Follow BMP daily (4) Scleroderma Assessment/Plan: as per Hx. She got her weekly MTX yesterday, while here. (5) Ileostomy in place Assessment/Plan: As per Hx. She manages the bag on her own. (6) Anemia Qualifiers: Anemia type: iron deficiency Assessment/Plan: She got iv Iron dosed yesterday. Follow CBC daily. - Current Meds Current Meds: Current Medications Generic Name Dose Route Start Last Admin Trade Name Freq PRN Reason Stop Dose Admin Diphenhydramine HCl 25 mg 02/11/21 00:49 02/13/21 13:32 Diphenhydramine Inj 50 Mg/Ml Vial IVP 25 mg Q6H PRN Administration ITCHING Enoxaparin Sodium 40 mg 02/11/21 09:00 02/13/21 08:48 Enoxaparin 40 Mg/0.4 Ml Syringe SUBQ 40 mg DAILY YVONNE Administration Folic Acid 1 mg 02/13/21 11:00 02/13/21 11:54 Folic Acid 1 Mg Tablet PO 1 mg DAILY YVONNE Administration Gabapentin 900 mg 02/12/21 09:00 02/13/21 08:48 Gabapentin 300 Mg Capsule PO 900 mg 0900,1600,2100 YVONNE Administration Heparin Sodium (Beef Lung) 30 - 50 unit 02/11/21 17:41 02/13/21 05:07 Heparin Flush 50 Units/5 Ml Syringe IVP 50 unit PRN PRN Administration Port Protocol (<24 hours) Hydrocortisone Sodium Succinate 100 mg 02/13/21 15:00 02/13/21 14:38 Hydrocortisone Succinate 100 Mg/2 Ml Vial IVP 100 mg TID YVONNE Administration Hydromorphone HCl 2 mg 02/11/21 13:01 02/13/21 11:55 Hydromorphone 1 Mg/Ml Carpuject IVP 2 mg Q2HR PRN Administration PAIN TRACE ELEMENTS 1 ml/ 2,011 mls @ 70 mls/hr 02/13/21 13:00 02/13/21 13:14 Multivitamins 10 ml/ Amino Ac/ IV 70 mls/hr Electrol/Dextrose/Calcium TPN/PPN YVONNE Administration Dextrose/Lactated Ringer's 1,000 mls @ 83.333 mls/hr 02/13/21 13:00 02/13/21 13:14 D5lr IV 83.333 mls/hr .Q12H YVONNE Administration Ketorolac Tromethamine 15 mg 02/13/21 02:16 02/13/21 02:28 Ketorolac 15 Mg/Ml Vial IVP 02/18/21 02:15 15 mg Q6HR PRN Administration PAIN Ondansetron HCl 4 mg 02/10/21 22:50 02/13/21 09:06 Ondansetron 4 Mg/2 Ml Vial IVP 4 mg Q6HR PRN Administration Nausea / Vomiting Prednisone 5 mg 02/12/21 09:00 02/13/21 08:48 Prednisone 5 Mg Tablet PO 5 mg DAILY YVONNE Administration Prochlorperazine Edisylate 10 mg 02/11/21 20:38 02/11/21 21:40 Prochlorperazine 10 Mg/2 Ml Vial IVP 10 mg Q6HR PRN Administration Nausea / Vomiting Sodium Chloride 10 ml 02/10/21 22:50 02/13/21 03:54 Sodium Chloride Flush 0.9% 10 Ml Syringe IVP 10 ml PRN PRN Administration NEEDED PER PROVIDER ORDERS Sodium Chloride 10 ml 02/11/21 01:00 02/13/21 08:48 Sodium Chloride Flush 0.9% 10 Ml Syringe IVP 10 ml 0100,0900,1700 YVONNE Administration Venlafaxine HCl 75 mg 02/12/21 14:00 02/13/21 14:38 Venlafaxine 37.5 Mg Tablet PO 75 mg TID YVONNE Administration - Lab Result Fish Bone Diagrams: 02/13/21 05:10 02/13/21 14:37 - Additional Planning My Orders: My Active Orders 02/13/21 10:50 Blood Glucose Checks - NPO [RC] 0600,1200,1800,0000 02/13/21 10:51 Daily Weight [RC] DAILY 02/13/21 11:00 Folic Acid 1 mg PO DAILY 02/13/21 12:08 VITAMIN D,25-OH,TOTAL,IA [REFLAB] Routine 02/13/21 13:00 Dextrose 5%-Lactated Ringers [D5lr] 1,000 ml IV 83.333 mls/hr Trace Elements [Tralement Vial] 1 ml Multivitamin [Infuvite] 10 ml TPN (Clinimix E 5/15) [Clinimix E 5%-15% Solution] 2,000 ml IV TPN/PPN 02/13/21 14:12 Miscellaneous Laboratory Order [LAB] Urgent 02/13/21 14:37 MISC TEST QUEST REFRIG [REFLAB] Routine 02/13/21 15:00 Hydrocortisone Succinate [Solu-CORTEF] 100 mg IVP TID 02/13/21 19:00 Fat Emulsion 20% [Intralipid 20%] 250 ml IV 21 mls/hr 02/14/21 FERRITIN [IAI] Routine 02/14/21 05:00 COMPREHENSIVE METABOLIC PANEL [CHEM] Routine MAGNESIUM [CHEM] Routine MISC TEST QUEST REFRIG [REFLAB] Routine MISC TEST QUEST REFRIG [REFLAB] Routine PHOSPHORUS [CHEM] Routine PREALBUMIN [CHEM] Routine TRIGLYCERIDES [CHEM] Routine 02/16/21 05:00 COMPREHENSIVE METABOLIC PANEL [CHEM] Routine MAGNESIUM [CHEM] Routine PHOSPHORUS [CHEM] Routine PREALBUMIN [CHEM] Routine TRIGLYCERIDES [CHEM] Routine 02/18/21 05:00 COMPREHENSIVE METABOLIC PANEL [CHEM] Routine MAGNESIUM [CHEM] Routine PHOSPHORUS [CHEM] Routine PREALBUMIN [CHEM] Routine TRIGLYCERIDES [CHEM] Routine 02/21/21 05:00 COMPREHENSIVE METABOLIC PANEL [CHEM] Routine MAGNESIUM [CHEM] Routine PHOSPHORUS [CHEM] Routine PREALBUMIN [CHEM] Routine TRIGLYCERIDES [CHEM] Routine Subjective - Subjective Patient Reports: Other (Still had pain needing narcotics this morning) Objective Vital Signs: Vital Signs - 24 hr 02/12/21 02/13/21 02/13/21 18:00 01:39 03:56 Temperature 36.9 C 36.8 C 36.9 C Heart Rate [ 70 70 67 Brachial] Respiratory 16 13 16 Rate Blood Pressure 158/98 H [Left Brachial artery] Blood Pressure 152/86 H 175/101 H [Right Brachial artery] O2 Saturation 93 95 97 02/13/21 02/13/21 07:49 11:34 Temperature 36.8 C Heart Rate [ 76 Brachial] Respiratory 18 16 Rate Blood Pressure [Left Brachial artery] Blood Pressure 151/90 H [Right Brachial artery] O2 Saturation 96 Oxygen O2 Source Room air I&O (Last 24 Hrs): Intake and Output Totals x24h 02/11/21 02/12/21 02/13/21 23:59 23:59 23:59 Intake Total 2431.667 4048.334 2893.333 Output Total 778 4460 3975 Balance 1653.667 -411.666 -1081.667 General: Alert, Other (Lethargic) HEENT: Mucous membr. moist/pink, Other (Eyes are "heavy" fatigued appearing) Neck: Supple, No JVD Neuro: Alert, Non Focal Cardiovascular: Regular rate, No murmurs Respiratory: No respiratory distress Abdomen: Soft, No tenderness, Other (Diminished bowel sounds) Extremities: No edema - Results Results: Laboratory Results WBC 8.5 x10^3/uL (4.8-10.8) 02/13/21 05:10 RBC 3.81 10^6/uL (4.20-5.40) L 02/13/21 05:10 Hgb 11.3 g/dL (12.0-16.0) L 02/13/21 05:10 Hct 36.5 % (37.0-47.0) L 02/13/21 05:10 MCV 95.8 fL (81.0-99.0) 02/13/21 05:10 MCH 29.7 pg (27.0-31.0) 02/13/21 05:10 MCHC 31.0 g/dL (32.0-36.0) L 02/13/21 05:10 RDW 15.8 % (12.0-15.0) H 02/13/21 05:10 Plt Count 208 10^3/uL (130-450) 02/13/21 05:10 MPV 10.1 fL (7.9-10.8) 02/13/21 05:10 Neut # (Auto) 5.4 10^3/uL (1.5-6.6) 02/13/21 05:10 Lymph # (Auto) 1.8 10^3/uL (1.5-3.5) 02/13/21 05:10 [place] # (Auto) 1.0 10^3/uL (0.0-1.0) 02/13/21 05:10 Eos # (Auto) 0.3 10^3/uL (0.0-0.7) 02/13/21 05:10 Baso # (Auto) 0.0 10^3/uL (0.0-0.1) 02/13/21 05:10 Absolute Nucleated RBC 0.00 x10^3/uL 02/13/21 05:10 Nucleated RBC % 0.0 /100WBC 02/13/21 05:10 Sodium 134 mmol/L (135-145) L 02/13/21 05:10 Potassium 3.5 mmol/L (3.5-5.0) 02/13/21 05:10 Chloride 99 mmol/L (101-111) L 02/13/21 05:10 Carbon Dioxide 27 mmol/L (21-32) 02/13/21 05:10 Anion Gap 8.0 (6-13) 02/13/21 05:10 BUN 5 mg/dL (6-20) L 02/13/21 05:10 Creatinine 0.7 mg/dL (0.4-1.0) 02/13/21 05:10 Estimated GFR (MDRD) 106 (>89) 02/13/21 05:10 Glucose 106 mg/dL (70-100) H 02/13/21 14:37 POC Whole Bld Glucose 63 mg/dL (70 - 100) L 02/13/21 15:07 Calcium 9.1 mg/dL (8.5-10.3) 02/13/21 05:10 Magnesium 1.7 mg/dL (1.7-2.8) 02/13/21 05:10 Iron 23 ug/dL (28-170) L 02/12/21 06:50 TIBC 293 ug/dL (250-450) 02/12/21 06:50 % Saturation 8 % (20-50) L 02/12/21 06:50 Transferrin 209 mg/dL (192-382) 02/12/21 06:50 Total Bilirubin 0.5 mg/dL (0.2-1.0) 02/10/21 22:24 AST 21 IU/L (10-42) 02/10/21 22:24 ALT 16 IU/L (10-60) 02/10/21 22:24 Alkaline Phosphatase 71 IU/L (42-121) 02/10/21 22:24 Total Protein 7.3 g/dL (6.7-8.2) 02/10/21 22:24 Albumin 3.9 g/dL (3.2-5.5) 02/10/21 22:24 Globulin 3.4 g/dL (2.1-4.2) 02/10/21 22:24 Albumin/Globulin Ratio 1.1 (1.0-2.2) 02/10/21 22:24 Lipase 31 U/L (22-51) 02/10/21 22:24 Vitamin B12 687 pg/mL (180-914) 02/12/21 06:50 Folate 31.00 ng/mL (5.90 - >24.8) 02/12/21 06:50 Urine Color YELLOW 02/10/21 22:17 Urine Clarity HAZY (CLEAR) 02/10/21 22:17 Urine pH 8.5 PH (5.0-7.5) H 02/10/21 22:17 Ur Specific [place] 1.015 (1.002-1.030) 02/10/21 22:17 Urine Protein NEGATIVE mg/dL (NEGATIVE) 02/10/21 22:17 Urine Glucose (UA) NEGATIVE mg/dL (NEGATIVE) 02/10/21 22:17 Urine Ketones NEGATIVE mg/dL (NEGATIVE) 02/10/21 22:17 Urine Occult Blood NEGATIVE (NEGATIVE) 02/10/21 22:17 Urine Nitrite NEGATIVE (NEGATIVE) 02/10/21 22:17 Urine Bilirubin NEGATIVE (NEGATIVE) 02/10/21 22:17 Urine Urobilinogen 0.2 (NORMAL) E.U./dL (NORMAL) 02/10/21 22:17 Ur Leukocyte Esterase NEGATIVE (NEGATIVE) 02/10/21 22:17 Urine RBC None Seen /HPF (0-5) 02/10/21 22:17 Urine WBC 0-3 /HPF (0-5) 02/10/21 22:17 Ur Squamous Epith Cells NONE SEEN (<= Few) 02/10/21 22:17 Amorphous Sediment Rare /LPF 02/10/21 22:17 Urine Bacteria None Seen /HPF (None Seen) 02/10/21 22:17 Ur Microscopic Review INDICATED 02/10/21 22:17 Urine Culture Comments NOT INDICATED 02/10/21 22:17 Coronavirus (PCR) NEGATIVE 02/10/21 22:15
[2021-02-13] MEDS: FAT EMULSION 20% 250 ML IV SCH (20:27)
[2021-02-14] MEDS: DEXTROSE 5%-LACTATED RINGERS 1,000 ML IV SCH ×2 (00:15→14:58)
[2021-02-14] MEDS: SODIUM CHLORIDE FLUSH 0.9% 10 ML SYRINGE IVP SCH ×4 (00:16→05:45)
[2021-02-14] MEDS: HYDROmorphone 1 MG/ML CARPUJECT IVP PRN ×7 (00:33→20:51)
[2021-02-14] MEDS: SODIUM CHLORIDE FLUSH 0.9% 10 ML SYRINGE IVP PRN ×4 (03:43→23:36)
[2021-02-14] MEDS: diphenhydrAMINE INJ 50 MG/ML VIAL IVP PRN ×3 (03:44→20:51)
[2021-02-14] MEDS: HYDROCORTISONE SUCCINATE 100 MG/2 ML VIAL IVP SCH ×3 (05:45→22:16)
[2021-02-14] MEDS: VENLAFAXINE 37.5 MG TABLET PO SCH ×3 (05:45→21:00)
[2021-02-14 06:19] LABS: BASOPHILS % (AUTO) 0.1 %; HCT - HEMATOCRIT 34.2 % (37.0-47.0); HGB - HEMOGLOBIN 10.9 g/dL (12.0-16.0); LYMPHOCYTES # (AUTO) 0.8 10^3/uL (1.5-3.5); LYMPHOCYTES % (AUTO) 8.9 %; MEAN CORPUSCULAR HEMOGLOBIN 29.9 pg (27.0-31.0); MEAN CORPUSCULAR HGB CONC 31.9 g/dL (32.0-36.0); MEAN CORPUSCULAR VOLUME 93.7 fL (81.0-99.0); MEAN PLATELET VOLUME 11.2 fL (7.9-10.8); MONOCYTES # (AUTO) 0.6 10^3/uL (0.0-1.0); MONOCYTES % (AUTO) 6.3 %; NEUTROPHILS # (AUTO) 7.5 10^3/uL (1.5-6.6); NEUTROPHILS % (AUTO) 84.4 %; PLT - PLATELET COUNT 202 10^3/uL (130-450); RED BLOOD COUNT 3.65 10^6/uL (4.20-5.40); RED CELL DISTRIBUTION WIDTH 15.4 % (12.0-15.0); WHITE BLOOD COUNT 8.9 x10^3/uL (4.8-10.8)
[2021-02-14 06:28] LABS: ALBUMIN 3.7 g/dL (3.2-5.5); ALBUMIN/GLOBULIN RATIO 1.2 (1.0-2.2); BILIRUBIN,TOTAL 0.9 mg/dL (0.2-1.0); CALCIUM 9.2 mg/dL (8.5-10.3); CREATININE 0.6 mg/dL (0.4-1.0); MAGNESIUM 1.8 mg/dL (1.7-2.8); PHOSPHORUS 3.8 mg/dL (2.5-4.6); TOTAL PROTEIN 6.9 g/dL (6.7-8.2)
[2021-02-14] MEDS: POTASSIUM CHLOR 10 MEQ/100 ML 10 MEQ/100 ML BAG IV SCH ×4 (08:03→12:53)
[2021-02-14] MEDS: ENOXAPARIN 40 MG/0.4 ML SYRINGE SUBQ SCH (08:03)
[2021-02-14] MEDS: FOLIC ACID 1 MG TABLET PO SCH (08:04)
[2021-02-14] MEDS: GABAPENTIN 300 MG CAPSULE PO SCH ×3 (08:04→20:50)
--- NOTE | 2021-02-14 08:41 | Discharge Plan ---
Discharge Plan Problem Reviewed?: Yes Disposition: Home, Self Care Condition: Good Diet: Soft (clear liquid/pureed/Parenteral nutrition) Activity Restrictions: Activity as Tolerated Shower Restrictions: No Driving Restrictions: No Health Concerns: You are affected by scleroderma. That in turn has reduce the distensibility of your esophagus and bowel. 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 This has resulted in food getting stuck in your esophagus, and pseudo bowel obstructions. You are on chronic parenteral caloric supplementation. You were recently discharged from us for a recurrent pseudo bowel obstruction a week ago and returned after eating a sandwich. You have been back in the hospital since February 10 and have had an NG tube, and we continued to feed with total parenteral nutrition through your veins. You are now passing gas, tolerating clear liquids with a pureed diet and would like to go home. While you were here, we did identify you as having severely low vitamin D levels. You on 50,000 units a week. The 50,000 units is covered by your insurance plan. We will need to increase your dosage to two to three times a week and not once a week.. Plan of Treatment: To continue a clear liquid diet at home. Maintain nutrition as much as possible through total parenteral nutrition. Please follow-up with your primary care provider Martín Palmer in the next 1 to 2 weeks. Please take 50,000 units of vitamin D twice a week. Aim for Saturday and . Care Goals: To maintain nutrition To slow down Scleroderma effects Assessment: Patient understands and will follow thru with PCP visit and vitamin supplements. No Smoking: If you smoke, Please STOP! Call for help. Follow-up with: Provider,Other [Primary Care Provider] -
[2021-02-14] MEDS ORDERED: DEXTROSE 50% ABBOJECT 25 GM/50 ML SYRINGE IVP ONE (14:04)
[2021-02-14] MEDS ORDERED: DEXTROSE 10% 250 ML IV STA (16:51)
[2021-02-14] MEDS ORDERED: HYDROCORTISONE SUCCINATE 100 MG/2 ML VIAL IVP SCH (16:52)
--- NOTE | 2021-02-14 16:59 | PROVIDER PROGRESS NOTE ---
Subjective - Prog Note Date Prog Note Date: 02/14/21 Prog Note Time: 16:58 - Subjective Subjective: This morning, at 8 AM, she wanted to go home by noon. She felt that her bowel obstruction had resolved. She was passing gas. She asked for soft food. She wanted something like the consistency of scrambled eggs or mashed potatoes. I ordered it for her not realizing that nutrition services have been in contact with [place] on this lady. She is not supposed to have anything beyond liquids. The patient has been noncompliant at home, eating food she should not, leading to her bowel obstructions. Unfortunately by the time I received that informatio n, she is already eaten her scrambled eggs. And abdominal pain recurred. She has been requesting Dilaudid every 2 hours. But at the same time insisting she was ready to go home. She then began having hypoglycemia in the afternoon. Initially in the 60s, then dropped into the 40s. We have gone back up on her TPN rate. I have given her an amp of D50. Even with that her glucose stays in the 50s to 60s. Her abdominal discomfort is cramping around her stoma site. There is no vomiting. There is copious flatus. Current Medications - Current Medications Current Medications: Active Medications Diphenhydramine HCl (Diphenhydramine Inj 50 Mg/Ml Vial) 25 mg IVP Q6H PRN PRN Reason: ITCHING Last Admin: 02/14/21 09:51 Dose: 25 mg Documented by: Enoxaparin Sodium (Enoxaparin 40 Mg/0.4 Ml Syringe) 40 mg SUBQ DAILY [facility] Last Admin: 02/14/21 08:03 Dose: 40 mg Documented by: Folic Acid (Folic Acid 1 Mg Tablet) 1 mg PO DAILY [facility] Last Admin: 02/14/21 08:04 Dose: 1 mg Documented by: Gabapentin (Gabapentin 300 Mg Capsule) 900 mg PO 0900,1600,2100 [facility] Last Admin: 02/14/21 16:58 Dose: 900 mg Documented by: Heparin Sodium (Beef Lung) (Heparin Flush 50 Units/5 Ml Syringe) 30 - 50 unit IVP PRN PRN PRN Reason: Port Protocol (<24 hours) Last Admin: 02/13/21 05:07 Dose: 50 unit Documented by: Hydrocortisone Sodium Succinate (Hydrocortisone Succinate 100 Mg/2 Ml Vial) 100 mg IVP TID YVONNE Stop: 02/15/21 23:59 Last Admin: 02/14/21 13:03 Dose: 100 mg Documented by: Hydrocortisone Sodium Succinate (Hydrocortisone Succinate 100 Mg/2 Ml Vial) 50 mg IVP TID [facility] Hydromorphone HCl (Hydromorphone 1 Mg/Ml Carpuject) 2 mg IVP Q2HR PRN PRN Reason: PAIN Last Admin: 02/14/21 11:56 Dose: 2 mg Documented by: TRACE ELEMENTS 1 ml/Multivitamins 10 ml/ Amino Ac/Electrol/Dextrose/Calcium 2,011 mls @ 70 mls/hr IV TPN/PPN [facility] Last Infusion: 02/14/21 10:00 Dose: 35 mls/hr Documented by: Fat Emulsion Intravenous (Intralipid 20%) 250 mls @ 21 mls/hr IV 1900 YVONNE Last Infusion: 02/14/21 08:22 Dose: Infused Documented by: Dextrose (D10w) 250 mls @ 125 mls/hr IV ONCE STA Stop: 02/14/21 18:50 Last Admin: 02/14/21 16:59 Dose: 125 mls/hr Documented by: Ketorolac Tromethamine (Ketorolac 15 Mg/Ml Vial) 15 mg IVP Q6HR PRN PRN Reason: PAIN Stop: 02/18/21 02:15 Last Admin: 02/13/21 02:28 Dose: 15 mg Documented by: Ondansetron HCl (Ondansetron 4 Mg/2 Ml Vial) 4 mg IVP Q6HR PRN PRN Reason: Nausea / Vomiting Last Admin: 02/13/21 09:06 Dose: 4 mg Documented by: Ondansetron HCl (Ondansetron Odt 4 Mg Tablet) 4 mg TL Q6HR PRN PRN Reason: Nausea / Vomiting Prednisone (Prednisone 5 Mg Tablet) 5 mg PO DAILYWM [facility] Prochlorperazine Edisylate (Prochlorperazine 10 Mg/2 Ml Vial) 10 mg IVP Q6HR PRN PRN Reason: Nausea / Vomiting Last Admin: 02/11/21 21:40 Dose: 10 mg Documented by: Sodium Chloride (Sodium Chloride Flush 0.9% 10 Ml Syringe) 10 ml IVP PRN PRN PRN Reason: NEEDED PER PROVIDER ORDERS Last Admin: 02/14/21 07:11 Dose: 10 ml Documented by: Sodium Chloride (Sodium Chloride Flush 0.9% 10 Ml Syringe) 10 ml IVP 0100,0900,1700 [facility] Last Admin: 02/14/21 05:45 Dose: 10 ml Documented by: Venlafaxine HCl (Venlafaxine 37.5 Mg Tablet) 75 mg PO TID [facility] Last Admin: 02/14/21 14:18 Dose: 75 mg Documented by: Gabapentin [Neurontin] 900 mg PO 0900,1600,2100 10/02/18 Methotrexate Sodium/Pf [Methotrexate 25 mg/ml Vial] 25 mg SUBQ Q7D 10/02/18 Prednisone 5 mg PO DAILY 10/02/18 Folic Acid 1 mg PO DAILY 02/07/21 Ursodiol [Hieu] 750 mg PO DAILY 02/07/21 Omeprazole Magnesium 20 mg PO DAILY 02/08/21 Venlafaxine [Effexor] 100 mg PO TID 02/08/21 oxyCODONE [Roxicodone] 10 mg PO BID 02/08/21 Objective - Vital Signs/Intake & Output Reviewed Vital Signs: Yes Vital Signs: Vital Signs x48h Temp Pulse Resp BP Pulse Ox 02/14/21 15:56 36.4 C L 64 18 151/83 H 96 Intake & Output: Intake & Output 02/11/21 02/12/21 02/13/21 02/14/21 23:59 23:59 23:59 23:59 Intake Total 2431.667 4048.334 3988.333 6061.719 Output Total 778 4460 6850 3850 Balance 1653.667 -411.666 -2861.667 2211.719 - Objective General Appearance: positive: Other (This morning she was alert, oriented. By afternoon she is starting to slur her speech, mouth is very dry, lips are sticking to her teeth.) Eyes Bilateral: positive: PERRL, EOMI ENT: positive: Dry mucous membranes Neck: positive: No JVD. negative: Stiff neck Respiratory: positive: No respiratory distress. negative: Wheezes, Rales, Rhonchi Cardiovascular: positive: Regular rate & rhythm, Systolic murmur. negative: Gallop/S4, Friction rub Abdomen: positive: Tenderness, Other (Mild generalized distention. No rebound or guarding. She rates her pain at a 7 out of a 10. She states that it makes her writhing in pain. But she is calm, collected when she says this.) Skin: positive: Warm, Dry Extremities: positive: Non-tender, No pedal edema Neurologic/Psychiatric: positive: Oriented x3, CN's nml (2-12), Motor nml (She is able to sit up in bed, transfer her feet to the side of the bed. Stand to then walk to the bathroom to empty her bag. Then crawled back in bed without any assistance. No tremors, ataxia.), Slurred/abnml speech (In the afternoon with low glucose) - Lab Results Fish Bones: 02/14/21 05:55 02/14/21 05:55 Other Labs: Lab Results x24hrs 02/14/21 02/14/21 02/14/21 Range/Units 16:44 16:27 14:39 WBC (4.8-10.8) x10^3/uL RBC (4.20-5.40) 10^6/uL Hgb (12.0-16.0) g/dL Hct (37.0-47.0) % MCV (81.0-99.0) fL MCH (27.0-31.0) pg MCHC (32.0-36.0) g/dL RDW (12.0-15.0) % Plt Count (130-450) 10^3/uL MPV (7.9-10.8) fL Neut # (Auto) (1.5-6.6) 10^3/uL Lymph # (Auto) (1.5-3.5) 10^3/uL [place] # (Auto) (0.0-1.0) 10^3/uL Eos # (Auto) (0.0-0.7) 10^3/uL Baso # (Auto) (0.0-0.1) 10^3/uL Absolute Nucleated RBC x10^3/uL Nucleated RBC % /100WBC Sodium (135-145) mmol/L Potassium (3.5-5.0) mmol/L Chloride (101-111) mmol/L Carbon Dioxide (21-32) mmol/L Anion Gap (6-13) BUN (6-20) mg/dL Creatinine (0.4-1.0) mg/dL Estimated GFR (MDRD) (>89) Glucose (70-100) mg/dL POC Whole Bld Glucose 52 L* 68 L 77 (70 - 100) mg/dL Calcium (8.5-10.3) mg/dL Phosphorus (2.5-4.6) mg/dL Magnesium (1.7-2.8) mg/dL Ferritin (11.0-306.8) ng/mL Total Bilirubin (0.2-1.0) mg/dL AST (10-42) IU/L ALT (10-60) IU/L Alkaline Phosphatase (42-121) IU/L Total Protein (6.7-8.2) g/dL Albumin (3.2-5.5) g/dL Globulin (2.1-4.2) g/dL Albumin/Globulin Ratio (1.0-2.2) Prealbumin (18-45) mg/dL Triglycerides ( - 149) mg/dL 25-OH Vitamin D Total (30-100) ng/mL 02/14/21 02/14/21 02/14/21 Range/Units 14:01 12:57 11:55 WBC (4.8-10.8) x10^3/uL RBC (4.20-5.40) 10^6/uL Hgb (12.0-16.0) g/dL Hct (37.0-47.0) % MCV (81.0-99.0) fL MCH (27.0-31.0) pg MCHC (32.0-36.0) g/dL RDW (12.0-15.0) % Plt Count (130-450) 10^3/uL MPV (7.9-10.8) fL Neut # (Auto) (1.5-6.6) 10^3/uL Lymph # (Auto) (1.5-3.5) 10^3/uL [place] # (Auto) (0.0-1.0) 10^3/uL Eos # (Auto) (0.0-0.7) 10^3/uL Baso # (Auto) (0.0-0.1) 10^3/uL Absolute Nucleated RBC x10^3/uL Nucleated RBC % /100WBC Sodium (135-145) mmol/L Potassium (3.5-5.0) mmol/L Chloride (101-111) mmol/L Carbon Dioxide (21-32) mmol/L Anion Gap (6-13) BUN (6-20) mg/dL Creatinine (0.4-1.0) mg/dL Estimated GFR (MDRD) (>89) Glucose (70-100) mg/dL POC Whole Bld Glucose 48 L* 63 L 66 L (70 - 100) mg/dL Calcium (8.5-10.3) mg/dL Phosphorus (2.5-4.6) mg/dL Magnesium (1.7-2.8) mg/dL Ferritin (11.0-306.8) ng/mL Total Bilirubin (0.2-1.0) mg/dL AST (10-42) IU/L ALT (10-60) IU/L Alkaline Phosphatase (42-121) IU/L Total Protein (6.7-8.2) g/dL Albumin (3.2-5.5) g/dL Globulin (2.1-4.2) g/dL Albumin/Globulin Ratio (1.0-2.2) Prealbumin (18-45) mg/dL Triglycerides ( - 149) mg/dL 25-OH Vitamin D Total (30-100) ng/mL 02/14/21 02/14/21 02/14/21 Range/Units 05:55 05:55 05:55 WBC 8.9 (4.8-10.8) x10^3/uL RBC 3.65 L (4.20-5.40) 10^6/uL Hgb 10.9 L (12.0-16.0) g/dL Hct 34.2 L (37.0-47.0) % MCV 93.7 (81.0-99.0) fL MCH 29.9 (27.0-31.0) pg MCHC 31.9 L (32.0-36.0) g/dL RDW 15.4 H (12.0-15.0) % Plt Count 202 (130-450) 10^3/uL MPV 11.2 H (7.9-10.8) fL Neut # (Auto) 7.5 H (1.5-6.6) 10^3/uL Lymph # (Auto) 0.8 L (1.5-3.5) 10^3/uL [place] # (Auto) 0.6 (0.0-1.0) 10^3/uL Eos # (Auto) 0.0 (0.0-0.7) 10^3/uL Baso # (Auto) 0.0 (0.0-0.1) 10^3/uL Absolute Nucleated RBC 0.00 x10^3/uL Nucleated RBC % 0.0 /100WBC Sodium 136 (135-145) mmol/L Potassium 3.0 L (3.5-5.0) mmol/L Chloride 98 L (101-111) mmol/L Carbon Dioxide 29 (21-32) mmol/L Anion Gap 9.0 (6-13) BUN 7 (6-20) mg/dL Creatinine 0.6 (0.4-1.0) mg/dL Estimated GFR (MDRD) 126 (>89) Glucose 132 H (70-100) mg/dL POC Whole Bld Glucose (70 - 100) mg/dL Calcium 9.2 (8.5-10.3) mg/dL Phosphorus 3.8 (2.5-4.6) mg/dL Magnesium 1.8 (1.7-2.8) mg/dL Ferritin 203.0 (11.0-306.8) ng/mL Total Bilirubin 0.9 (0.2-1.0) mg/dL AST 24 (10-42) IU/L ALT 16 (10-60) IU/L Alkaline Phosphatase 66 (42-121) IU/L Total Protein 6.9 (6.7-8.2) g/dL Albumin 3.7 (3.2-5.5) g/dL Globulin 3.2 (2.1-4.2) g/dL Albumin/Globulin Ratio 1.2 (1.0-2.2) Prealbumin 15 L (18-45) mg/dL Triglycerides 97 ( - 149) mg/dL 25-OH Vitamin D Total (30-100) ng/mL 02/13/21 02/13/21 02/13/21 Range/Units 23:53 20:11 12:08 WBC (4.8-10.8) x10^3/uL RBC (4.20-5.40) 10^6/uL Hgb (12.0-16.0) g/dL Hct (37.0-47.0) % MCV (81.0-99.0) fL MCH (27.0-31.0) pg MCHC (32.0-36.0) g/dL RDW (12.0-15.0) % Plt Count (130-450) 10^3/uL MPV (7.9-10.8) fL Neut # (Auto) (1.5-6.6) 10^3/uL Lymph # (Auto) (1.5-3.5) 10^3/uL [place] # (Auto) (0.0-1.0) 10^3/uL Eos # (Auto) (0.0-0.7) 10^3/uL Baso # (Auto) (0.0-0.1) 10^3/uL Absolute Nucleated RBC x10^3/uL Nucleated RBC % /100WBC Sodium (135-145) mmol/L Potassium (3.5-5.0) mmol/L Chloride (101-111) mmol/L Carbon Dioxide (21-32) mmol/L Anion Gap (6-13) BUN (6-20) mg/dL Creatinine (0.4-1.0) mg/dL Estimated GFR (MDRD) (>89) Glucose (70-100) mg/dL POC Whole Bld Glucose 93 90 (70 - 100) mg/dL Calcium (8.5-10.3) mg/dL Phosphorus (2.5-4.6) mg/dL Magnesium (1.7-2.8) mg/dL Ferritin (11.0-306.8) ng/mL Total Bilirubin (0.2-1.0) mg/dL AST (10-42) IU/L ALT (10-60) IU/L Alkaline Phosphatase (42-121) IU/L Total Protein (6.7-8.2) g/dL Albumin (3.2-5.5) g/dL Globulin (2.1-4.2) g/dL Albumin/Globulin Ratio (1.0-2.2) Prealbumin (18-45) mg/dL Triglycerides ( - 149) mg/dL 25-OH Vitamin D Total 10 L (30-100) ng/mL ABX Reporting Has patient been on IV antibiotics over the past 48 hours?: Yes Assessment/Plan - Problem List (1) Hypoglycemia Impression: Assessment/Plan: She was hypoglycemic in the 40's-60's all afternoon on 02/13, despite D50 1 amp and D5 in her iv and 15%D in her TPN, started 02/13. No exogenous Insulin or oral Sulfonylurea were administered, I spoke to pharmacy. A serum glucose level and C-peptide were ordered, to check for Insulinoma. She had been on Prednisone 5 mg daily, per her Reconciled med list, therefore she may be [place], since she got no stress dose steroids, as the cause of this prolonged hypoglycemia. Hydrocortisone iv tid has been started for 3 doses, as stress dose steroids, and she completed the 3 doses. Starting today, in the afternoon, she is again hypoglycemia. Again pharmacy queried about insulin in bag. It's the same one and new one to be done by 6 pm tonight. Again received amp D50 and I am resuming D10 (stopping D5) Serum insulin level, C-peptide level, and oral hypoglycemic agent screen were ordered yesterday. Not drawn yet. She wants to go home but agrees to stay bc of this. (2) Bowel obstruction resolved. Assessment/Plan: She has output in the ileostomy bag and slightly less pain. She was tolerating clear liquids fine. I added eggs this am and abd cramping resumed. Nutrition has changed her to pureed food. She was reinstructed on what she can eat by Nutrition. She will stay until glucose issue resolved. (3) Hypokalemia continues Assessment/Plan: Replace again with iv riders Follow BMP daily (4) Scleroderma Assessment/Plan: as per Hx. She got her weekly MTX 02/12, while here. (5) Ileostomy in place Assessment/Plan: As per Hx. She manages the bag on her own. (6) Anemia Qualifiers: Anemia type: iron deficiency Assessment/Plan: She got iv Iron dosed 02/12
[2021-02-14] MEDS ORDERED: DEXTROSE 10% 1,000 ML IV SCH (17:00)
[2021-02-14] MEDS ORDERED: DEXTROSE 10% 250 ML IV ONE (17:03)
[2021-02-14] MEDS: MULTIVITAMIN IV SCH ×3 (17:09)
[2021-02-14] MEDS: FAT EMULSION 20% 250 ML IV SCH (17:09)
[2021-02-14] MEDS: TPN IV SCH ×3 (17:09)
[2021-02-14] MEDS: TRACE ELEMENTS IV SCH ×3 (17:09)
[2021-02-15] MEDS: HYDROmorphone 1 MG/ML CARPUJECT IVP PRN ×8 (04:05→21:42)
[2021-02-15] MEDS: SODIUM CHLORIDE FLUSH 0.9% 10 ML SYRINGE IVP PRN ×3 (04:05→21:45)
[2021-02-15] MEDS: HYDROCORTISONE SUCCINATE 100 MG/2 ML VIAL IVP SCH ×3 (06:16→21:42)
[2021-02-15] MEDS: VENLAFAXINE 37.5 MG TABLET PO SCH ×3 (06:17→21:42)
[2021-02-15] MEDS: diphenhydrAMINE INJ 50 MG/ML VIAL IVP PRN ×2 (06:27→18:27)
[2021-02-15] MEDS: GABAPENTIN 300 MG CAPSULE PO SCH ×3 (10:26→21:42)
[2021-02-15] MEDS: SODIUM CHLORIDE FLUSH 0.9% 10 ML SYRINGE IVP SCH ×2 (10:26→16:12)
[2021-02-15] MEDS: FOLIC ACID 1 MG TABLET PO SCH (10:26)
[2021-02-15] MEDS: ENOXAPARIN 40 MG/0.4 ML SYRINGE SUBQ SCH (10:26)
--- NOTE | 2021-02-15 16:06 | XRAY Report ---
PROCEDURE: Abdomen 1 View X-Ray INDICATIONS: continued "bowel pain" in pt 2 Sm bowel resections TECHNIQUE: 1 view of the abdomen were acquired. COMPARISON: Abdomen x-ray 02/11/2021 FINDINGS: Surgical changes and devices: Nasogastric tube is no longer visualized. Bowel: No pneumoperitoneum. The bowel gas pattern continues to demonstrate dilated loops of predomi nantly small bowel the largest measuring approximately 6.5 cm compared to similar on prior exam. Soft tissues: No masses; visualized solid organ contours appear normal in size. No suspicious abdominal calcifications. Bones: No suspicious bony abnormalities. IMPRESSION: Persistent appearance of partial small bowel obstruction. Reviewed by: Kayleigh Jaramillo MD on 02/15/2021 4:04 PM PDT Approved by: Kayleigh Jaramillo MD on 02/15/2021 4:04 PM PDT Station ID: [id number]
--- NOTE | 2021-02-15 18:37 | PROVIDER PROGRESS NOTE ---
Subjective - Prog Note Date Prog Note Date: 02/15/21 Prog Note Time: 18:35 - Subjective Subjective: So far her glucose has stayed up today. She has been 88 is the lowest noon. And she has been 112, 138 150 for the rest of the day. She has been on Solu- Cortef 50 mg IV 3 times daily when I resumed it yesterday. Dilaudid continues to be every 2 hours for abdominal pain. Relatively hypothermic at 36.4. No fever. Blood pressure high in the 140s to 150s systolic. Heart rate in the 60s. 98% on room air. Intake and output was -2861 on February 13. +1506 on February 14. As of today she is already -3023 cc. I reviewed her records from [facility]. She is a Maikel-en-Y gastric bypass surgery in 2006. 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 She presents to the urgent care on a regular basis with pain after eating and distended intestine. She had frequent admissions for ileus with pseudoobstruction even with small amounts of food that were done orally. She did significant amount of p.o. intake on January 29, 2019 and presented with a massively dilated small bowel with early necrosis. She has significant mental status changes. Peritoneal findings. And as such she was taken to the operating room for exploratory laparotomy, small bowel resection, and ileostomy and mucous fistula. She was continued on chronic TPN. The chart emphasizes that the patient is only supposed to be on thin/clear liquids. She is not to be eating anything heavier. Consultations included palliative care to help with pain management. The patient was also seen by psychiatry, dE Mccallum MD, for emotional distress. She was unable to take her duloxetine and mirtazapine for her recurrent major depression and anxiety disorder. She was v [place] frustrated about her medical condition and care. She was focused upon pain management and felt the time that she was thought to be drug-seeking. She felt that she was not being listened to. The psychiatrist validated her pain and concerns and offered to help facilitate communication with the treatment team. He had minimal concerns for substance abuse disorder. She had valid reasons for pain and likely physiological tolerance and dependence. He recommended that she resume her depression medications. To open up the capsule of duloxetine and sprinkle it on a little bit of applesauce and take it down that way. Follow-up is as needed. Her past medical history was: Hemorrhoids History of blood transfusions Status post gastric bypass Hypertension Intermittent intestinal pseudoobstruction Iron deficiency anemia secondary to inadequate dietary iron intake Moderate protein calorie malnutrition Pancreatitis Raynauds Rectus diastases Scleroderma Small intestinal bacterial overgrowth Vitiligo Zinc deficiency Objective - Vital Signs/Intake & Output Vital Signs: Vital Signs x48h Temp Pulse Resp BP Pulse Ox 02/15/21 15:31 36.2 C L 64 16 147/83 H 98 Intake & Output: Intake & Output 02/12/21 02/13/21 02/14/21 02/15/21 23:59 23:59 23:59 23:59 Intake Total 4048.334 3988.333 8181.424 1076.6 Output Total 4460 6850 6675 3800 Balance -411.666 -2861.667 1506.424 -2723.4 - Lab Results Fish Bones: 02/14/21 05:55 02/14/21 05:55 Other Labs: Lab Results x24hrs 02/15/21 02/15/21 02/15/21 Range/Units 16:45 12:00 06:09 POC Whole Bld Glucose 112 H 88 138 H (70 - 100) mg/dL Ref Lab Test Result 02/15/21 02/14/21 02/14/21 Range/Units 03:59 23:36 20:45 POC Whole Bld Glucose 150 H 110 H 73 (70 - 100) mg/dL Ref Lab Test Result 02/14/21 Range/Units 05:55 POC Whole Bld Glucose (70 - 100) mg/dL Ref Lab Test Result REPORT Assessment/Plan - Problem List (1) Hypoglycemia Impression: Assessment/Plan: She was hypoglycemic in the 40's-60's all afternoon on 02/13, despite D50 1 amp and D5 in her iv and 15%D in her TPN, started 02/13. No exogenous Insulin or oral Sulfonylurea were administered, I spoke to pharmacy. A serum glucose level and C-peptide were ordered, to check for Insulinoma. She had been on Prednisone 5 mg daily, per her Reconciled med list, therefore she may be Addisonian, since she got no stress dose steroids, as the cause of this prolonged hypoglycemia. Hydrocortisone iv tid has been started for 3 doses, as stress dose steroids, and she completed the 3 doses. Starting 02/14 in the afternoon, she was again hypoglycemic. Again pharmacy queried about insulin in bag. It's the same one and new one to be done by 6 pm damianight. Again received amp D50 and I resumed D10 (stopping D5) C-peptide level and oral hypoglycemic agent screen were ordered 02/13 and are pending. Insulin level 12.9 Plan is to continue her TPN with increased carb and sugar. (2) Bowel obstruction resolved. Assessment/Plan: She has output in the ileostomy bag and slightly less pain. She was tolerating clear liquids fine. I added eggs this am and abd cramping resumed. Nutrition has changed her to pureed food. She was reinstructed on what she can eat by Nutrition. She will stay until glucose issue resolved. (3) Hypokalemia continues Assessment/Plan: Replace again with iv riders Follow BMP daily (4) Scleroderma Assessment/Plan: as per Hx. She got her weekly MTX 02/12, while here. (5) Ileostomy in place Assessment/Plan: As per Hx. She manages the bag on her own. (6) Anemia Qualifiers: Anemia type: iron deficiency Assessment/Plan: She got iv Iron dosed 02/12
[2021-02-15] MEDS: MULTIVITAMIN IV SCH ×3 (18:38)
[2021-02-15] MEDS: FAT EMULSION 20% 250 ML IV SCH (18:38)
[2021-02-15] MEDS: TRACE ELEMENTS IV SCH ×3 (18:38)
[2021-02-15] MEDS: TPN IV SCH ×3 (18:38)
[2021-02-16] MEDS: HYDROmorphone 1 MG/ML CARPUJECT IVP PRN ×7 (00:10→17:26)
[2021-02-16] MEDS: SODIUM CHLORIDE FLUSH 0.9% 10 ML SYRINGE IVP SCH ×3 (00:16→17:29)
[2021-02-16] MEDS: diphenhydrAMINE INJ 50 MG/ML VIAL IVP PRN ×3 (00:22→13:48)
[2021-02-16] MEDS: SODIUM CHLORIDE FLUSH 0.9% 10 ML SYRINGE IVP PRN ×3 (00:31→05:30)
[2021-02-16] MEDS: HYDROCORTISONE SUCCINATE 100 MG/2 ML VIAL IVP SCH ×2 (05:42→13:48)
[2021-02-16] MEDS: VENLAFAXINE 37.5 MG TABLET PO SCH ×2 (05:43→13:48)
[2021-02-16 06:33] LABS: ALBUMIN/GLOBULIN RATIO 1.4 (1.0-2.2); BILIRUBIN,TOTAL 0.7 mg/dL (0.2-1.0); CALCIUM 9.5 mg/dL (8.5-10.3); CREATININE 0.7 mg/dL (0.4-1.0); MAGNESIUM 1.8 mg/dL (1.7-2.8); POTASSIUM 3.5 mmol/L (3.5-5.0); TOTAL PROTEIN 6.9 g/dL (6.7-8.2)
[2021-02-16] MEDS ORDERED: predniSONE 5 MG TABLET PO SCH (08:00)
[2021-02-16] MEDS: FOLIC ACID 1 MG TABLET PO SCH (08:04)
[2021-02-16] MEDS: ENOXAPARIN 40 MG/0.4 ML SYRINGE SUBQ SCH (08:05)
[2021-02-16] MEDS: GABAPENTIN 300 MG CAPSULE PO SCH ×2 (08:06→16:30)
--- NOTE | 2021-02-16 13:20 | DISCHARGE SUMMARY ---
"Discharge Summary Admit Date: 02/10/21 Discharge Date: 02/16/21 Discharging Provider: Collette Truong MD Primary Care Provider: Mariann Palmer MD Code Status: Attempt Resuscitation Condition at Discharge: Good Discharge Disposition: 01 Home, Self Care - DIAGNOSES Discharge Diagnoses with Status of Each Condition: 1 chronic small bowel pseudoobstruction, secondary 2. Scleroderma 3. Status post Maikel-en-Y 4. Status post small bowel resection 5. Chronic opioid dependence with chronic pain syndrome 6. Hypoglycemia 7. Adrenal insufficiency 8. Hypokalemia 9. Ileostomy in place 10. Chronic iron deficiency anemia 11. Low Vitamin D - HPI History of Present Illness: This is a very pleasant 55-year-old female with a past medical history significant for scleroderma and recurrent episodes of bowel obstruction. She is visiting [facility] to stay with her brother. Most of her care is done at [facility] and clinics and her primary care provider is through [facility]. In review of her old records from [facility], the patient is scleroderma which manifested itself years after a gastric bypass surgery of a Maikel-en-Y 14 years ago. She has struggled with her diet, and has been on chronic TPN. She knows that she is not supposed to be eating normal food but she has numerous bouts of evaluations in the urgent care center at [facility] as well as with that admission to [facility] for pseudoobstructions. She describes staying in the urgent care center up to 24 hours. She will get hydration, antiemetics, pain medicines until the bout goes away and then she can be discharged from the urgent care center. Her last admission to [facility] was in January 2019 when a large food bolus resulted in such distention of her small bowel that it necrosis and she ended up with a small bowel resection on top of her Maikel-en-Y. She continues on TPN chronically. She was just discharged from our facility yester day after being admitted for a bowel obstruction. She was treated with an NG tube for decompression and pain control. She felt improved and needed to go home to take care of some work and so she was discharged yesterday on February 09. She states that she felt well initially and on her way home, she picked up some gizzards and ice tea. She knows she should not have eaten any food but given how well she was feeling, she decided to eat a little bit. She states that that evening her pain became severe and she had multiple episodes of nonbloody emesis. She could barely sleep through the night due to discomfort. She continued to have episodes of emesis today. Given she had finished her work she needed to do, she decided to come back to the emergency department today due to the ongoing vomiting. She states abdominal pain is about an 8 out of 10. She had associated nausea and vomiting. This feels similar to her prior episodes of obstruction. She has had some output from her ostomy but this is significantly decreased. She feels quite distended and full. Denies any chest pain, dyspnea, dysuria, urgency. In the emergency department, she is found to be hemodynamically stable. Her labs are unremarkable. Given her above presentation, medicine was consulted for admission. 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 Chest x-ray with tip of NG tube seen in the proximal stomach. Right-sided central line. No acute cardiopulmonary process. 2. Plain film abdomen February 11 showed dilation of small bowel, improved to CT of abdomen February 08. 3. Plain film abdomen, February 15, showed dilated loops of predominantly small bowel measuring 6.5 cm. Similar to prior exam February 11. - HOSPITAL COURSE Hospital Course: The patient was continued on NG suction until she felt less pain and was passing flatus. Her ileostomy bag was also filling on a regular basis and she was emptying it. She required Dilaudid 2 mg every 2 hours. At times she appears quite sedated with slurred speech, dry mouth, and barely opened her eyes. But she stated that the pain was agonizing with an 8 out of a 10 crampy pain near her ostomy. She is very sensitive about her use of pain medicines and feels that as a person of color, she is automatically judged, and this in turn leads to people like her not having adequate access to the same treatment other patients get. She relates instances of her previous hospitalizations where she felt pain was not adequately treated. She was continued on TPN. IV fluids for hydration. Potassium and vitamin D were supplemented. She was ready for discharge when she asked for scrambled eggs. That then caused increased abd ominal pain and distention and nutrition services had to sit down with her to describe what a pured diet or clear liquids look like. After 2 more days, she was able to keep all her food down. She does describe occasional pinch-like pain near her ostomy when she has to urinate. Ostomy bag is being emptied on a regular basis. There are no fever, no chills. No vomiting. She is ambulating on her own to get up to go to the bathroom without any assist. The only other issue that was present during her stay was that of hypoglycemia. We had given her stress dose steroids for 3 doses. We noted that when those stress doses were stopped, her sugar came down to the 30s and 40s and she required D50, D10 in addition to her TPN. As such she is felt stable for discharge. We are increasing her vitamin D to 50,000 units 2 or 3 times a week. We did try to order it once a day (6000 units) but her insurance plan does not cover that. We have also asked her to increase her prednisone from 5 mg to 10 mg a day. Temperature is 36.5. Heart rate 70. Blood pressure 149/87. Respirations 16 and 99% on room air. She is a 5 foot 4 inch tall black female. Temperature is 69.5. She appears comfortable, denies any current pain. Neck is supple. Lungs are clear to auscultation and percussion. PMI normally placed. Regular rate and rhythm. Abdomen is slightly tender around her ostomy site but there is no rebound, guarding. Hyperactive bowel sounds. The bag is partially full of liquid cloudy brownish-yellow. Extremities are warm, no clubbing cyanosis or edema. She is discharged to follow-up with her primary care provider. Dr. Martín Palmer. I did attempt to leave a message with her PCP yesterday. However she is still out on vacation and will not be back till next week. I left my number for a covering provider to please call me and as of this dictation, there has been no return phone call. - ALLERGIES Allergies/Adverse Reactions: Allergies Allergy/AdvReac Type Severity Reaction Status Date / Time No Known Drug Allergies Allergy Verified 02/10/21 19:57 - MEDICATIONS Home Medications: Ambulatory Orders Medication Instructions Recorded Confirmed Gabapentin [Neurontin] 900 mg PO 0900,1600,2100 10/02/18 02/10/21 Methotrexate Sodium/Pf 25 mg SUBQ Q7D 10/02/18 02/10/21 [Methotrexate 25 mg/ml Vial] Prednisone 5 mg PO DAILY 10/02/18 02/10/21 Folic Acid 1 mg PO DAILY 02/07/21 02/10/21 Ursodiol [Hieu] 750 mg PO DAILY 02/07/21 02/10/21 Omeprazole Magnesium 20 mg PO DAILY 02/08/21 02/10/21 Venlafaxine [Effexor] 100 mg PO TID 02/08/21 02/10/21 oxyCODONE [Roxicodone] 10 mg PO BID 02/08/21 02/10/21 Ergocalciferol [Vitamin D2] 50,000 unit PO Q3D #10 cap 02/14/21 02/10/21 Folic Acid 1 mg PO DAILY tablet 02/14/21 - LABS Result Diagrams: 02/14/21 05:55 02/16/21 06:00"
[2021-02-16 19:14] VITALS: BP 158/96
== END 2021-02-16 19:25 | disposition home or self-care (01) | DRG 389 ==
LOC: ED 19:48 → MS2 22:50
PROVIDERS: ADMIT Internal Medicine; ATTEND Specialist
DX: K56.699 Other intestinal obstruction unspecified as to partial versus complete obstruction (principal); F11.20 Opioid dependence, uncomplicated; E27.40 Unspecified adrenocortical insufficiency; M34.9 Systemic sclerosis, unspecified; Z98.84 Bariatric surgery status; G89.4 Chronic pain syndrome; E16.2 Hypoglycemia, unspecified; E87.6 Hypokalemia; D50.9 Iron deficiency anemia, unspecified; E55.9 Vitamin D deficiency, unspecified; I10 Essential (primary) hypertension; F41.9 Anxiety disorder, unspecified; Z20.822 Contact with and (suspected) exposure to COVID-19; Z93.2 Ileostomy status; Z90.49 Acquired absence of other specified parts of digestive tract; Z79.52 Long term (current) use of systemic steroids; Z79.899 Other long term (current) drug therapy
CPT/HCPCS: 36415; 71045; 74018; 80048; 80053; 81001; 81599; 82306; 82607; 82728; 82746; 82947; 83540; 83690; 83735; 84100; 84134; 84466; 84478; 85025; 87635; 96374; 96375; 99284; 99285; A9270; J0131; J1170; J1200; J1650; J1750; J3490; J7120; J7512; 81003; 87086

== ENCOUNTER 2021-04-16 16:48 | Observation (INO) | payer OTHER ==
--- OUTSIDE RECORDS SUMMARY | 2021-04-16 16:51 | EXTERNAL MEDICAL SUMMARY RPT | Continuity of Care Document ---
:1965 Demographics Phone Unavailable Preferred Language Unknown Marital Status Unknown Mandaen Affiliation Unknown Race Unknown Ethnic Group Unknown Author Organization [facility] [address] [place] [address] Phone Allergies Encounters Medications Problems date description facility [id number] Pseudo-obstruction of intestine, NG [facility] Tube [id number] Unspecified intestinal obstruction, [facility] unspecified as to partial versus complete obstruction [id number] abdominal distension [facility] [id number] abd pain [facility] [id number] Bowel Pseudo Obstruction [facility] Results
--- OUTSIDE RECORDS SUMMARY | 2021-04-16 16:54 | EXTERNAL MEDICAL SUMMARY RPT | Continuity of Care Document ---
:1965 Demographics Phone Unavailable Preferred Language Unknown Marital Status Unknown Rastafarian Affiliation Unknown Race Unknown Ethnic Group Unknown Author Organization [facility] [address] [place] [address] Phone Allergies Encounters Medications Problems date description facility [id number] Pseudo-obstruction of intestine, NG [facility] Tube [id number] Unspecified intestinal obstruction, [facility] unspecified as to partial versus complete obstruction [id number] abdominal distension [facility] [id number] abd pain [facility] [id number] Bowel Pseudo Obstruction [facility] Results
[2021-04-16 17:18] LABS: BILIRUBIN,URINE NEGATIVE (NEGATIVE); GLUCOSE, URINE (UA) NEGATIVE (NEGATIVE); KETONES,URINE (UA) NEGATIVE (NEGATIVE); LEUKOCYTE ESTERASE, URINE NEGATIVE (NEGATIVE); NITRITE,URINE NEGATIVE (NEGATIVE); OCCULT BLOOD,URINE NEGATIVE (NEGATIVE); PROTEIN,URINE TRACE mg/dL (NEGATIVE); UROBILINOGEN,URINE 0.2 (NORMAL) E.U./dL (NORMAL)
[2021-04-16 17:19] LABS: CLARITY,URINE CLEAR (CLEAR)
[2021-04-16] MEDS ORDERED: ONDANSETRON 4 MG/2 ML VIAL IVP STA (17:39)
[2021-04-16] MEDS ORDERED: HYDROmorphone 1 MG/ML CARPUJECT IVP STA (17:39)
[2021-04-16] MEDS ORDERED: SODIUM CHLORIDE 0.9% 1,000 ML IV STA (17:39)
[2021-04-16] MEDS ORDERED: diphenhydrAMINE INJ 50 MG/ML VIAL IVP STA (17:39)
--- NOTE | 2021-04-16 17:39 | ED Physician Documentation ---
PD HPI ABD PAIN - Stated complaint Stated Complaint: N/V STOMACH PX - Chief complaint Chief Complaint: Abd Pain - History obtained from History obtained from: Patient - History of Present Illness Timing - onset: Today Timing - duration: Days (1) Timing - details: Gradual onset Pain level max: 10 Pain level now: 10 Quality: Aching, Pain Location: All over / everywhere Associated symptoms: Nausea, Vomiting. No: Fever, Hematemesis, Diarrhea, Constipation Recently seen: Not recently seen - Additional information Additional information: Patient is a 55-year-old female who presents to the emergency department abdominal pain and vomiting. This is an ongoing issue for her. She has a history of generalized scleroderma that has affected her GI tract. She has been through multiple bowel resections and has an ileostomy. She states that whenever she eats solid food, she developed pseudoobstructions and vomiting. Normally is relieved with an NG tube and time in the hospital. Nothing makes it better or worse. She is visiting from [place] Review of Systems Ten Systems: 10 systems reviewed and negative Constitutional: denies: Fever, Chills Nose: denies: Rhinorrhea / runny nose, Congestion Respiratory: denies: Cough GI: reports: Nausea, Vomiting. 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 HEENT: Tonsil/Adenoidectomy - Present Medications Home Medications: Ambulatory Orders Medication Instructions Recorded Confirmed Gabapentin [Neurontin] 900 mg PO 0900,1600,2100 10/02/18 02/10/21 Methotrexate Sodium/Pf 25 mg SUBQ Q7D 10/02/18 02/10/21 [Methotrexate 25 mg/ml Vial] predniSONE [Prednisone] 5 mg PO DAILY 10/02/18 02/10/21 Folic Acid 1 mg PO DAILY 02/07/21 02/10/21 Ursodiol [Hieu] 750 mg PO DAILY 02/07/21 02/10/21 Omeprazole Magnesium 20 mg PO DAILY 02/08/21 02/10/21 Venlafaxine [Effexor] 100 mg PO TID 02/08/21 02/10/21 oxyCODONE [Roxicodone] 10 mg PO BID 02/08/21 02/10/21 Ergocalciferol [Vitamin D2] 50,000 unit PO Q3D #10 cap 02/14/21 02/10/21 Folic Acid 1 mg PO DAILY tablet 02/14/21 predniSONE [Prednisone] 10 mg PO DAILY #60 tablet 02/16/21 - Allergies Allergies/Adverse Reactions: Allergies Allergy/AdvReac Type Severity Reaction Status Date / Time No Known Drug Allergies Allergy Verified 04/16/21 17:04 - Social History Does the pt smoke?: No Smoking Status: Never smoker Does the pt drink ETOH?: No Does the pt have substance abuse?: No - Immunizations Immunizations are current?: Yes - POLST Patient has POLST: No POLST Status: Full Code PD ED PE NORMAL - Vitals Vital signs reviewed: Yes - General General: Alert and oriented X 3, No acute distress, Well developed/nourished - HEENT HEENT: PERRL, Moist mucous membranes - Neck Neck: Supple, no meningeal sign - Cardiac Cardiac: RRR, Strong equal pulses - Respiratory Respiratory: No respiratory distress, Clear bilaterally - Abdomen Abdomen: Soft, Other (Mild distention. Mild diffuse tenderness to palpation. No signs of infection around the ostomy) - Back Back: No CVA TTP, No spinal TTP - Derm Derm: Warm and dry - Extremities Extremities: No edema - Neuro Neuro: Alert and oriented X 3 - Psych Psych: Normal mood, Normal affect Results - Vitals Vitals: Vital Signs - 24 hr 04/16/21 04/16/21 16:57 19:03 Temperature 36.9 C Heart Rate 85 72 Respiratory 18 18 Rate Blood Pressure 141/92 H 153/94 H O2 Saturation 99 100 Oxygen O2 Source Room air - Labs Labs: Laboratory Tests 04/16/21 04/16/21 04/16/21 17:08 18:05 18:05 WBC 8.3 RBC 4.33 Hgb 13.2 Hct 41.3 MCV 95.4 MCH 30.5 MCHC 32.0 RDW 14.6 Plt Count 246 MPV 10.4 Neut # (Auto) 6.2 Lymph # (Auto) 1.3 L [place] # (Auto) 0.7 Eos # (Auto) 0.1 Baso # (Auto) 0.0 Absolute Nucleated RBC 0.00 Nucleated RBC % 0.0 Sodium 133 L Potassium 3.6 Chloride 99 L Carbon Dioxide 23 Anion Gap 11.0 BUN 22 H Creatinine 1.0 Estimated GFR (MDRD) 70 L Glucose 125 H Calcium 9.6 Total Bilirubin 0.5 AST 30 ALT 19 Alkaline Phosphatase 96 Total Protein 8.2 Albumin 4.6 Globulin 3.6 Albumin/Globulin Ratio 1.3 Lipase 23 Urine Color YELLOW Urine Clarity CLEAR Urine pH 6.0 Ur Specific [place] 1.025 Urine Protein TRACE Urine Glucose (UA) NEGATIVE Urine Ketones NEGATIVE Urine Occult Blood NEGATIVE Urine Nitrite NEGATIVE Urine Bilirubin NEGATIVE Urine Urobilinogen 0.2 (NORMAL) Ur Leukocyte Esterase NEGATIVE Ur Microscopic Review NOT INDICATED Urine Culture Comments NOT INDICATED Nasal Adenovirus (PCR) Nasal B. parapertussis DNA (PCR) Nasal Coronavir 229E PCR Nasal Coronavir HKU1 PCR Nasal Coronavir NL63 PCR Nasal Coronavir OC43 PCR Nasal Enterovir/Rhinovir PCR Nasal Influenza B PCR Nasal Influenza A PCR Nasal Parainfluen 1 PCR Nasal Parainfluen 2 PCR Nasal Parainfluen 3 PCR Nasal Parainfluen 4 PCR Nasal RSV (PCR) Nasal B.pertussis DNA PCR Nasal C.pneumoniae (PCR) [place] Human Metapneumo PCR Nasal M.pneumoniae (PCR) Nasal SARS-CoV-2 (PCR) 04/16/21 20:01 WBC RBC Hgb Hct MCV MCH MCHC RDW Plt Count MPV Neut # (Auto) Lymph # (Auto) [place] # (Auto) Eos # (Auto) Baso # (Auto) Absolute Nucleated RBC Nucleated RBC % Sodium Potassium Chloride Carbon Dioxide Anion Gap BUN Creatinine Estimated GFR (MDRD) Glucose Calcium Total Bilirubin AST ALT Alkaline Phosphatase Total Protein Albumin Globulin Albumin/Globulin Ratio Lipase Urine Color Urine Clarity Urine pH Ur Specific [place] Urine Protein Urine Glucose (UA) Urine Ketones Urine Occult Blood Urine Nitrite Urine Bilirubin Urine Urobilinogen Ur Leukocyte Esterase Ur Microscopic Review Urine Culture Comments Nasal Adenovirus (PCR) NOT DETECTED Nasal B. parapertussis DNA (PCR) NOT DETECTED Nasal Coronavir 229E PCR NOT DETECTED Nasal Coronavir HKU1 PCR NOT DETECTED Nasal Coronavir NL63 PCR NOT DETECTED Nasal Coronavir OC43 PCR NOT DETECTED Nasal Enterovir/Rhinovir PCR NOT DETECTED Nasal Influenza B PCR NOT DETECTED Nasal Influenza A PCR NOT DETECTED Nasal Parainfluen 1 PCR NOT DETECTED Nasal Parainfluen 2 PCR NOT DETECTED Nasal Parainfluen 3 PCR NOT DETECTED Nasal Parainfluen 4 PCR NOT DETECTED Nasal RSV (PCR) NOT DETECTED Nasal B.pertussis DNA PCR NOT DETECTED Nasal C.pneumoniae (PCR) NOT DETECTED [place] Human Metapneumo PCR NOT DETECTED Nasal M.pneumoniae (PCR) NOT DETECTED Nasal SARS-CoV-2 (PCR) NOT DETECTED - Rads (name of study) abd xray Radiology: Prelim report reviewed, EMP read contemporaneously, See rad report (Similar dilated loop of small bowel in the midabdomen and left upper abdomen. This could be due to persistent small bowel obstruction. ) PD MEDICAL DECISION MAKING - ED course Complexity details: reviewed results, re-evaluated patient, considered differential, d/w patient, d/w qa consultant ED course: Patient has had many CT scans in the past and this is similar to her usual presentation, therefore only a plain film x-ray was performed. NG tube was placed and patient feels better. We will place on pain medication, antiemetics and IV fluids. Discussed the case with Dr. Delgado, hospitalist who accepts. Also discussed the case with Dr. Ziegler, general surgery who will consult. This document was made in part using voice recognition software. While efforts are made to proofread this document, sound alike and grammatical errors may occur. Departure - Departure Disposition: ED Place in Observation Clinical Impression: Acute pseudo-obstruction of bowel, Scleroderma involving bowel Condition: Stable Discharge Date/Time: 04/16/21 20:55
[2021-04-16 18:21] LABS: BASOPHILS % (AUTO) 0.2 %; EOSINOPHILS # (AUTO) 0.1 10^3/uL (0.0-0.7); EOSINOPHILS % (AUTO) 0.6 %; HCT - HEMATOCRIT 41.3 % (37.0-47.0); HGB - HEMOGLOBIN 13.2 g/dL (12.0-16.0); LYMPHOCYTES # (AUTO) 1.3 10^3/uL (1.5-3.5); LYMPHOCYTES % (AUTO) 15.4 %; MEAN CORPUSCULAR HEMOGLOBIN 30.5 pg (27.0-31.0); MEAN CORPUSCULAR VOLUME 95.4 fL (81.0-99.0); MEAN PLATELET VOLUME 10.4 fL (7.9-10.8); MONOCYTES # (AUTO) 0.7 10^3/uL (0.0-1.0); MONOCYTES % (AUTO) 8.5 %; NEUTROPHILS # (AUTO) 6.2 10^3/uL (1.5-6.6); NEUTROPHILS % (AUTO) 74.9 %; PLT - PLATELET COUNT 246 10^3/uL (130-450); RED BLOOD COUNT 4.33 10^6/uL (4.20-5.40); RED CELL DISTRIBUTION WIDTH 14.6 % (12.0-15.0); WHITE BLOOD COUNT 8.3 x10^3/uL (4.8-10.8)
[2021-04-16 18:33] LABS: ALBUMIN 4.6 g/dL (3.2-5.5); ALBUMIN/GLOBULIN RATIO 1.3 (1.0-2.2); BILIRUBIN,TOTAL 0.5 mg/dL (0.2-1.0); CALCIUM 9.6 mg/dL (8.5-10.3); POTASSIUM 3.6 mmol/L (3.5-5.0); TOTAL PROTEIN 8.2 g/dL (6.7-8.2)
[2021-04-16] MEDS ORDERED: LIDOCAINE TOPICAL 4% 50 ML BOTTLE MM STA (19:48)
[2021-04-16] MEDS ORDERED: LIDOCAINE JELLY 2% 6 ML JEL.PF.APP TOP STA (19:49)
--- NOTE | 2021-04-16 20:09 | XRAY Report ---
PROCEDURE: Abdomen 1 View X-Ray INDICATIONS: abd pain, h/o recurrent SBO, ileostomy TECHNIQUE: 1 view of the abdomen were acquired. COMPARISON: Multiple prior abdominal radiographs. CT abdomen and pelvis 02/08/2021. FINDINGS: Surgical changes and devices: None. Bowel: No pneumoperitoneum. Suture material at the stomach. Dilated loop of bowel in the mid abdomen and left upper abdomen. Findings similar to the prior abdominal radiographs and CT. Soft tissues: No masses; visualized solid organ contours appear normal in size. No suspicious abdom inal calcifications. Bones: No suspicious bony abnormalities. IMPRESSION: Similar dilated loop of small bowel in the midabdomen and left upper abdomen. This could be due to pe rsistent small bowel obstruction. Reviewed by: Hussain Fernandez MD on 04/16/2021 8:08 PM PDT Approved by: Hussain Fernandez MD on 04/16/2021 8:08 PM PDT Station ID: [id number]
[2021-04-16] MEDS ORDERED: ONDANSETRON 4 MG/2 ML VIAL IVP PRN (20:32)
[2021-04-16] MEDS ORDERED: HYDROmorphone 0.5 MG/0.5 ML SYRINGE IVP PRN (20:32)
[2021-04-16] MEDS ORDERED: ACETAMINOPHEN 325 MG TABLET PO PRN (20:32)
[2021-04-16] MEDS ORDERED: SODIUM CHLORIDE FLUSH 0.9% 10 ML SYRINGE IVP PRN (20:32)
[2021-04-16] MEDS ORDERED: PROCHLORPERAZINE 10 MG/2 ML VIAL IVP PRN (20:32)
--- OUTSIDE RECORDS SUMMARY | 2021-04-16 20:41 | EXTERNAL MEDICAL SUMMARY RPT | Continuity of Care Document ---
:1965 Demographics Phone Unavailable Preferred Language Unknown Marital Status Unknown Zoroastrian Affiliation Unknown Race Unknown Ethnic Group Unknown Author Organization [facility] Address [address] [place] [address] Phone Allergies Encounters Medications Problems date description facility [id number] Pseudo-obstruction of intestine, NG [facility] Tube [id number] Unspecified intestinal obstruction, [facility] unspecified as to partial versus complete obstruction [id number] abdominal distension [facility] [id number] abd pain [facility] [id number] Bowel Pseudo Obstruction [facility] Results
[2021-04-16 21:01] LABS: B. PARAPERTUSSIS- RESP PCR PAN NOT DETECTED; B. PERTUSSIS- RESP PCR PANEL NOT DETECTED; C. PNEUMONIAE- RESP PCR PANEL NOT DETECTED; CORONAVIRUS 229E-RESP PCR NOT DETECTED; CORONAVIRUS HKU1-RESP PCR NOT DETECTED; CORONAVIRUS NL63-RESP PCR NOT DETECTED; CORONAVIRUS OC43-RESP PCR NOT DETECTED; HUMAN METAPNEUMOVIRUS NOT DETECTED; INFLUENZA A- RESP PCR PANEL NOT DETECTED; INFLUENZA B - RESP PCR PANEL NOT DETECTED; M. PNEUMONIAE- RESP PCR PANEL NOT DETECTED; PARAINFLUENZA VIRUS 1 NOT DETECTED; PARAINFLUENZA VIRUS 2 NOT DETECTED; PARAINFLUENZA VIRUS 3 NOT DETECTED; PARAINFLUENZA VIRUS 4 NOT DETECTED; RHINOVIRUS/ENTEROVIRUS NOT DETECTED; RSV- RESP PCR PANEL NOT DETECTED; SARS-CoV-2 -RESP PCR PANEL NOT DETECTED
[2021-04-16] MEDS: LACTATED RINGERS 1,000 ML IV SCH (21:28)
--- NOTE | 2021-04-16 21:55 | HISTORY & PHYSICAL EXAMINATION ---
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 She presents today complaining of nausea and vomiting as well as abdominal pain that began at about 2 AM this morning. She is visiting from [place], [place] for weekend and normally she is just on a liquid diet and TPN for nutrition. On Saturday she had chicken tenders from [employer] and on Saturday she had steak with some hashbrowns. She states she felt well on Saturday but then this morning at 2 AM, she woke up with abdominal pain as well as nausea and vomiting. She also complains of some abdominal distention and decreased output from her ileostomy. She has been hospitalized in the past for similar episodes of bowel obstruction which is exacerbated by food intake. She denies any hematemesis, fevers, chills, chest pain, dyspnea, dysuria, urgency. She currently reports feeling improved but still has abdominal pain in the left upper quadrant. In the emergency department, she underwent an abdominal x-ray which was concerning for dilated loops of small bowel consistent with obstruction. She was given antiemetics and NG tube was placed. Given the above findings, medicine was consulted for admission. 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 Both of her parents in the early 60s. Her mother from renal failure and her father from lung cancer. They were both smokers. Living Situation: With family Social History Notes: She lives in [place], [place]. She is visiting her brot her and [id number] here in [place], [place]. 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 She does not smoke or drink alcohol. - POLST Patient has POLST: No POLST Status: Full Code Meds/Allgy - Home Medications Home Medications: Ambulatory Orders Medication Instructions Recorded Confirmed Gabapentin [Neurontin] 900 mg PO 0900,1600,2100 10/02/18 02/10/21 Methotrexate Sodium/Pf 25 mg SUBQ Q7D 10/02/18 02/10/21 [Methotrexate 25 mg/ml Vial] predniSONE [Prednisone] 5 mg PO DAILY 10/02/18 02/10/21 Folic Acid 1 mg PO DAILY 02/07/21 02/10/21 Ursodiol [Hieu] 750 mg PO DAILY 02/07/21 02/10/21 Omeprazole Magnesium 20 mg PO DAILY 02/08/21 02/10/21 Venlafaxine [Effexor] 100 mg PO TID 02/08/21 02/10/21 oxyCODONE [Roxicodone] 10 mg PO BID 02/08/21 02/10/21 Ergocalciferol [Vitamin D2] 50,000 unit PO Q3D #10 cap 02/14/21 02/10/21 Folic Acid 1 mg PO DAILY tablet 02/14/21 predniSONE [Prednisone] 10 mg PO DAILY #60 tablet 02/16/21 - Allergies Allergies/Adverse Reactions: Allergies Allergy/AdvReac Type Severity Reaction Status Date / Time No Known Drug Allergies Allergy Verified 04/16/21 17:04 Review of Systems - Constitutional Constitutional: denies: Fatigue, Fever, Chills - Ears, Nose & Throat Ears, Nose & Throat: denies: Nasal discharge, Nasal congestion, Sore throat - Respiratory Respiratory: denies: Wheezing, Snoring, SOB at rest, SOB with exertion - Gastrointestinal Gastrointestinal: reports: Abdominal pain, Change in bowel habits, Nausea, Vomiting, Bloating - Genitourinary Genitourinary: denies: Dysuria, Frequency, Hematuria - Neurological Neurological: denies: General weakness, Focal weakness - Hematologic/Lymphatic Hematologic/Lymphatic: denies: Bleeding tendencies - All Other Systems All Other Systems: reports: Reviewed and negative Prior Level of Functionality: She is independent with her ADL's. Exam - Vital Signs Reviewed Vital Signs: Yes Vital Signs: Vital Signs x48h Temp Pulse Pulse Resp BP BP Pulse Ox 04/16/21 21:00 36.3 C L 61 18 134/93 H 95 04/16/21 20:47 78 18 139/95 H 99 04/16/21 19:03 72 18 153/94 H 100 04/16/21 16:57 36.9 C 85 18 141/92 H 99 - Physical Exam General Appearance: positive: No acute distress, Alert Eyes Bilateral: positive: Normal inspection, Conjunctivae nml ENT: positive: ENT inspection nml, Other (NG tube in place.) Neck: positive: Nml inspection Respiratory: positive: No respiratory distress. negative: Wheezes, Rales Cardiovascular: positive: No murmur, Other (Port over right chest noted.). negative: Irregularly irregular, Tachycardia, Systolic murmur Abdomen: positive: Tenderness (Left upper quadrant and epigastric.), Abnml bowel sounds (Hypoactive.), Other (Ileostomy in left lower quadrant with minimal output.). negative: Guarding, Rebound Skin: positive: Warm, Dry Extremities: positive: Full ROM, No pedal edema Neurologic/Psychiatric: positive: Motor nml. negative: Disoriented to person, Disoriented to place Conclusion/Plan - Problem List (1) Acute pseudo-obstruction of bowel Conclusion/Plan: Her presentation is once again consistent with obstruction. Abdominal film continues to reveal persistent dilated loops of small bowel. This is secondary to her scleroderma and is exacerbated by the oral intake she had today. We will place her in observation for symptom management. An NG tube has been placed and we will keep this to low intermittent suction. She is n.p.o. IV fluids with lactated Ringer's. Dilaudid IV as needed for pain control. Zofran for nausea. We will resume her home TPN tomorrow. General surgery has been consulted and appreciate their input. (2) Scleroderma involving bowel Conclusion/Plan: Unfortunately has scleroderma with bowel involvement and has had multiple surgical interventions in the past. We will continue her home medications when she is taking p.o. and will have her follow-up on an outpatient basis. - Lab Results Lab results reviewed: Yes Fish Bones: 04/16/21 18:05 04/16/21 18:05 - Diagnostic Imaging Results Diagnostic Imaging Results: positive: Final report reviewed Core Measures - Anticipated LOS I expect patient to be DC'd or transferred within 96 hours.: Yes - Issues Hospital Issues and Management Plan: 55-year-old female with history of scleroderma and recurrent episodes of small bowel obstruction presents with abdominal pain found to have a bowel obstruction. Will place in observation for NG tube, IV antiemetics, IV fluids. - DVT/VTE - Prophylaxis VTE/DVT Device ordered at admit?: Yes VTE/DVT Prophylaxis med ordered at admit?: Yes
[2021-04-17] MEDS: HYDROmorphone 1 MG/ML CARPUJECT IVP PRN ×7 (00:01→17:28)
[2021-04-17] MEDS ORDERED: diphenhydrAMINE INJ 50 MG/ML VIAL IVP STA (00:16)
[2021-04-17] MEDS: SODIUM CHLORIDE FLUSH 0.9% 10 ML SYRINGE IVP SCH ×2 (02:01→08:10)
[2021-04-17] MEDS ORDERED: SODIUM CHLORIDE FLUSH 0.9% 10 ML SYRINGE IVP PRN (05:33)
[2021-04-17 06:11] LABS: BASOPHILS % (AUTO) 0.3 %; EOSINOPHILS # (AUTO) 0.2 10^3/uL (0.0-0.7); EOSINOPHILS % (AUTO) 3.1 %; HCT - HEMATOCRIT 34.4 % (37.0-47.0); HGB - HEMOGLOBIN 11.2 g/dL (12.0-16.0); LYMPHOCYTES # (AUTO) 1.5 10^3/uL (1.5-3.5); LYMPHOCYTES % (AUTO) 21.1 %; MEAN CORPUSCULAR HEMOGLOBIN 31.1 pg (27.0-31.0); MEAN CORPUSCULAR HGB CONC 32.6 g/dL (32.0-36.0); MEAN CORPUSCULAR VOLUME 95.6 fL (81.0-99.0); MEAN PLATELET VOLUME 10.1 fL (7.9-10.8); MONOCYTES # (AUTO) 0.9 10^3/uL (0.0-1.0); MONOCYTES % (AUTO) 12.3 %; NEUTROPHILS # (AUTO) 4.5 10^3/uL (1.5-6.6); NEUTROPHILS % (AUTO) 63.1 %; PLT - PLATELET COUNT 180 10^3/uL (130-450); RED CELL DISTRIBUTION WIDTH 14.3 % (12.0-15.0); WHITE BLOOD COUNT 7.1 x10^3/uL (4.8-10.8)
[2021-04-17 06:27] LABS: CALCIUM 8.8 mg/dL (8.5-10.3); CREATININE 0.8 mg/dL (0.4-1.0); POTASSIUM 3.5 mmol/L (3.5-5.0)
[2021-04-17] MEDS: LACTATED RINGERS 1,000 ML IV SCH (07:38)
[2021-04-17] MEDS ORDERED: ENOXAPARIN 40 MG/0.4 ML SYRINGE SUBQ SCH (09:00)
--- NOTE | 2021-04-17 10:24 | XRAY Report ---
PROCEDURE: No-Charge 1V Abdomen INDICATIONS: NG tube placement. TECHNIQUE: 1 view of the abdomen were acquired. COMPARISON: Abdominal radiograph, 04/16/2021. Chest radiograph, 04/16/2021 FINDINGS: Surgical changes and devices: A gastric tube is seen, with the tip overlying the mid stomach. The alexandrea ehole is seen below the level of the diaphragm. Bowel: No pneumoperitoneum. The degree of previously seen gaseous prominence of the bowel is improve d. Soft tissues: No masses; visualized solid organ contours appear normal in size. No suspicious abdom inal calcifications. Bones: No suspicious bony abnormalities. IMPRESSION: The tip of the gastric tube is seen overlying the mid stomach. Improved appearance of the bowel. Note: No significant discrepancy from the preliminary report. Reviewed by: Siddhartha Nielsen MD on 04/17/2021 9:22 AM SHRAVAN Approved by: Siddhartha Nielsen MD on 04/17/2021 9:22 AM SHRAVAN Station ID: [id number]
--- NOTE | 2021-04-17 10:26 | XRAY Report ---
PROCEDURE: Chest for Line Placement INDICATIONS: Check NGT placement TECHNIQUE: One view of the chest was acquired. COMPARISON: 02/10/2021. Correlation is made with abdominal plain films, 04/16/2021. FINDINGS: Surgical changes and devices: A gastric tube is seen, with the tip off of the fmpll-[id number]-hnrs of this s tudy. The sidehole is seen below the level of diaphragm. There is a stable right-sided central line, unchanged compared to 02/10/2021. Lungs and pleura: No pleural effusions or pneumothorax. Lungs are clear. Mediastinum: Mediastinal contours appear normal. Heart size is normal. Bones and chest wall: No suspicious bony lesions. Gaseous prominence of bowel can be seen within the left upper quadrant. IMPRESSION: The tip of the gastric tube is not seen within the aldvo-hx-dnhs of this study, although the sidehole is below the level of the diaphragm. Stable right-sided central line. Clear lungs. Note: No significant discrepancy from the preliminary report. Reviewed by: Siddhartha Nielsen MD on 04/17/2021 9:24 AM SHRAVAN Approved by: Siddhartha Nielsen MD on 04/17/2021 9:24 AM SHRAVAN Station ID: [id number]
--- NOTE | 2021-04-17 12:26 | PHARMACY PROGRESS NOTE ---
- Best Possible Medication History Admit Date and Time: 04/16/212031 Processed by: Pharmacy Medication History completed: Yes Patient Interview: Completed Secondary Source(s): Pharmacy records, Insurance records, Previous admit records As the person ultimately responsible for medication therapy, providers are able to order a medication from an existing home medication list in [facility] via the "Reconcile Routine" prior to Confirmation of that medication by administrative support assoc. Such practice is discouraged except when the physician, in their clinical judgment, deems that a medical need exists for a medication without regard to previous use.
--- NOTE | 2021-04-17 18:00 | Discharge Plan ---
Discharge Plan Problem Reviewed?: Yes Disposition: Home, Self Care Condition: Stable Diet: Soft (clear liquids, no solid food) Activity Restrictions: Activity as Tolerated Shower Restrictions: No Driving Restrictions: No Health Concerns: You came [place] a friend of years. You have a known bowel disorder where you are really not allowed to eat solid food and you are on TPN. You were indiscrete, and suffer the consequences with abdominal crampy pain. You came to the hospital with another episode of abdominal pain from eating. 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 All your CAT scans looks the same. There were no worse than usual. He did not have a fever or white cell count. We placed you on observation status, place an NG tube through your nose into your stomach to suck out the fluid, and over the course of a few hours you have improved. We have clamped the NG, fed you clear liquids and if tolerated that well and wished to go home. Plan of Treatment: Continue your permissive plan of what you are allowed to do and not to do that you were working on for the last 2 weeks. Care Goals: To remain out of the hospital for episodes of abdominal pain and cramping. Assessment: Patient will follow through on care plan created [place] and with her PCP. No Smoking: If you smoke, Please STOP! Call for help. Follow-up with: MIRANDA CARUSO MD [Primary Care Provider] -
[2021-04-17 18:46] VITALS: BP 139/89
--- NOTE | 2021-04-26 20:11 | DISCHARGE SUMMARY ---
Discharge Summary Admit Date: 04/16/21 Discharge Date: 04/17/21 Discharging Provider: Collette Truong MD Code Status: Attempt Resuscitation Condition at Discharge: Stable Discharge Disposition: 01 Home, Self Care - DIAGNOSES Discharge Diagnoses with Status of Each Condition: 1. Acute pseudoobstruction of the bowel 2. Scleroderma involving bowel - HPI History of Present Illness: This is a 55-year-old female with a past medical history significant for scleroderma involving the GI tract with recurrent episodes of bowel obstruction. She presents today complaining of nausea and vomiting as well as abdominal pain that began at about 2 AM this morning. She is visiting from [place], [place] for weekend and normally she is just on a liquid diet and TPN for nutrition. On Saturday she had chicken tenders from [employer] and on Saturday she had steak with some hashbrowns. She states she felt well on Saturday but then this morning at 2 AM, she woke up with abdominal pain as well as nausea and vomiting. She also complains of some abdominal distention and decreased output from her ileostomy. She has been hospitalized in the past for similar episodes of bowel obstruction which is exacerbated by food intake. She denies any hematemesis, fevers, chills, chest pain, dyspnea, dysuria, urgency. She currently reports feeling improved but still has abdominal pain in the left upper quadrant. In the emergency department, she underwent an abdominal x-ray which was concerning for dilated loops of small bowel consistent with obstruction. She was given antiemetics and NG tube was placed. Given the above findings, medicine was consulted for admission. 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 Abdomen x-ray with consistently dilated loop of small bowel in the midabdomen and left upper abdomen that is remained in a unchanged from multiple prior abdominal radiographs as well as CT abdomen and pelvis February 08, 2021. A second abdomen x-ray was done after the gastric tube was placed and there was good placement. No other change. 2. Chest x-ray with stable right-sided central line. Tip of the gastric tube not seen in the field of view study. Clear lungs. - HOSPITAL COURSE Hospital Course: The patient was placed in observation with an NG tube in place. She could not really explain why she insist on eating regular meals when she has been told in the past by numerous communication lecturer at several institutions including [facility], and ourselves that she can no longer eat solid food. She says that she is in a "new program" to help her deal with the consequences of her insisting on eating. We have spoken to case management with her insurance program and they are aware of her multiple admissions throughout multiple institutions. We are made aware that she has had probably 4-5 admissions in the last 6 weeks alone. Her plain films remain unchanged with her stays with us. She has a consistently dilated small loop of bowel. The patient herself is the one that instructed us on when she was ready for discharge. She asked to be started on clear liquids and advance to full liquid. Pain was now controlled. She was continued on TPN. I went into her room multiple times over the 24 hours she was here. Each time she was sitting up in bed with her phone in a hand facing her or the remote in her hand but she had chin on her chest, dozing off, asleep. She would watch the clock with regards to when she needed her next Dilaudid dose and remind the nurse when it was due. I explained that it would be difficult for us to keep on giving her Dilaudid on a regular schedule when she was still clearly sedated by it. But she was very insistent that she knew her own body and her own response to pain. At discharge temperature was 36.6. Heart rate 68. Blood pressure 139/89. Respirations 20. 98% on room air. She is 5 foot 4 inches tall and weighs 62.5 kg. She is a supple neck with no goiter. Lungs are clear to auscultation and percussion without increased respiratory effort. PMI is normally placed with a regular rate and rhythm. Abdomen is vaguely achy and she rates pain at a 3 out of a 10, hypoactive bowel sounds, slightly distended with gas. No rebound or guarding. She is asked to follow-up with her primary care provider and to follow through with her care plan with regards to eating and her use of TPN. - ALLERGIES Allergies/Adverse Reactions: Allergies Allergy/AdvReac Type Severity Reaction Status Date / Time No Known Drug Allergies Allergy Verified 04/16/21 17:04 - MEDICATIONS Home Medications: Ambulatory Orders Medication Instructions Recorded Confirmed Gabapentin [Neurontin] 900 mg PO 0900,1600,2100 10/02/18 04/17/21 Methotrexate Sodium/Pf 25 mg SUBQ Q7D 10/02/18 04/17/21 [Methotrexate 25 mg/ml Vial] Folic Acid 1 mg PO DAILY 02/07/21 04/17/21 Ursodiol [Hieu] 750 mg PO DAILY 02/07/21 04/17/21 Omeprazole Magnesium 20 mg PO DAILY 02/08/21 04/17/21 Venlafaxine [Effexor] 100 mg PO TID 02/08/21 04/17/21 oxyCODONE [Roxicodone] 10 mg PO BID 02/08/21 04/17/21 Cholecalciferol (Vitamin D3) 50,000 unit PO DAILY 04/17/21 04/17/21 [Vitamin D3] Mirtazapine [Remeron] 15 mg PO QPM 04/17/21 04/17/21 - LABS Result Diagrams: 04/17/21 06:00 04/17/21 06:00
== END 2021-04-17 19:10 | disposition home or self-care (01) ==
LOC: ED 16:48 → UNDOADMOB 20:32 → MS2 20:32
PROVIDERS: ADMIT Internal Medicine; ATTEND Specialist
DX: K59.89 Other specified functional intestinal disorders (principal); M34.9 Systemic sclerosis, unspecified; I10 Essential (primary) hypertension; Z90.49 Acquired absence of other specified parts of digestive tract; Z20.822 Contact with and (suspected) exposure to COVID-19
CPT/HCPCS: 0202U; 36415; 43753; 71045; 74018; 80048; 80053; 81003; 83690; 85025; 96372; 96374; 96375; 96376; 99285; G0378; J1170; J1200; J1650; J7120; 81001; 87086

== ENCOUNTER 2021-05-09 23:03 | Observation (INO) | payer OTHER ==
[2021-05-09 23:34] LABS: BASOPHILS % (AUTO) 0.1 %; EOSINOPHILS # (AUTO) 0.3 10^3/uL (0.0-0.7); EOSINOPHILS % (AUTO) 2.9 %; HCT - HEMATOCRIT 38.3 % (37.0-47.0); HGB - HEMOGLOBIN 12.2 g/dL (12.0-16.0); LYMPHOCYTES # (AUTO) 1.9 10^3/uL (1.5-3.5); LYMPHOCYTES % (AUTO) 20.1 %; MEAN CORPUSCULAR HEMOGLOBIN 30.7 pg (27.0-31.0); MEAN CORPUSCULAR HGB CONC 31.9 g/dL (32.0-36.0); MEAN CORPUSCULAR VOLUME 96.2 fL (81.0-99.0); MONOCYTES # (AUTO) 0.7 10^3/uL (0.0-1.0); MONOCYTES % (AUTO) 7.6 %; NEUTROPHILS # (AUTO) 6.4 10^3/uL (1.5-6.6); NEUTROPHILS % (AUTO) 69.1 %; PLT - PLATELET COUNT 236 10^3/uL (130-450); RED BLOOD COUNT 3.98 10^6/uL (4.20-5.40); RED CELL DISTRIBUTION WIDTH 14.5 % (12.0-15.0); WHITE BLOOD COUNT 9.3 x10^3/uL (4.8-10.8)
[2021-05-09 23:44] LABS: ALBUMIN 4.5 g/dL (3.2-5.5); ALBUMIN/GLOBULIN RATIO 1.3 (1.0-2.2); BILIRUBIN,TOTAL 0.3 mg/dL (0.2-1.0); CALCIUM 9.6 mg/dL (8.5-10.3); CREATININE 0.8 mg/dL (0.4-1.0); POTASSIUM 3.8 mmol/L (3.5-5.0); TOTAL PROTEIN 7.9 g/dL (6.7-8.2)
[2021-05-09] MEDS ORDERED: diphenhydrAMINE INJ 50 MG/ML VIAL IVP STA (23:53)
[2021-05-09] MEDS ORDERED: HYDROmorphone 1 MG/ML CARPUJECT IVP STA (23:53)
[2021-05-09] MEDS ORDERED: ONDANSETRON 4 MG/2 ML VIAL IVP STA (23:54)
--- NOTE | 2021-05-10 00:01 | ED Physician Documentation ---
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 She is on TPN 20 hours per day. She is in a program where she chews and spits her food and if she has some type of distraction she will sometimes swallow food. This happened today on her way to would be to visit her brother. She states that last week she had visited him for 6 days did the chew and spit without any difficulty. Today she was talking to a student at about 9 PM ([facility] time) when she got distracted and swallowed food that she was eating. She relates she was eating a half of a sub and some shrimp.She has now developed her usual symptoms of pseudoobstruction with abdominal pain nausea and vomiting. She relates that she usually requires accessing her central line for administration of Dilaudid Zofran and Benadryl. She indicates an NG tube will help with this. She has had admissions usually overnight. She states that she is working on a program of chewing and spitting and she has been successful with this most of the time but knows that if she gets distracted at all she will sometimes eat and swallow the food she is eating. Review of Systems Constitutional: denies: Fever Eyes: denies: Decreased vision Ears: denies: Ear pain Nose: denies: Congestion Throat: denies: Sore throat Cardiac: denies: Chest pain / pressure, Palpitations Respiratory: denies: Dyspnea, Cough GI: reports: Abdominal Pain, Nausea, Vomiting : denies: Dysuria, Frequency Skin: denies: Rash Musculoskeletal: denies: Neck pain, Back pain, Extremity pain Neurologic: denies: Generalized weakness, Focal weakness, Numbness PD PAST MEDICAL HISTORY - Past Medical History Past Medical History: Yes Cardiovascular: Hypertension Respiratory: None Neuro: None Endocrine/Autoimmune: None, Other GI: Other : None HEENT: None Psych: Anxiety Musculoskeletal: None Derm: Other Other Past Medical History: Systemic Scleroderma - Past Surgical History Past Surgical History: Yes General: Bowel surgery, Gastric surgery, 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 HEENT: Tonsil/Adenoidectomy - Present Medications Home Medications: Ambulatory Orders Medication Instructions Recorded Confirmed Gabapentin [Neurontin] 900 mg PO 0900,1600,2100 10/02/18 05/09/21 Methotrexate Sodium/Pf 25 mg SUBQ Q7D 10/02/18 05/09/21 [Methotrexate 25 mg/ml Vial] Folic Acid 1 mg PO DAILY 02/07/21 05/09/21 Ursodiol [Hieu] 750 mg PO DAILY 02/07/21 05/09/21 Omeprazole Magnesium 20 mg PO DAILY 02/08/21 05/09/21 Venlafaxine [Effexor] 100 mg PO TID 02/08/21 05/09/21 oxyCODONE [Roxicodone] 10 mg PO BID PRN 02/08/21 05/09/21 Cholecalciferol (Vitamin D3) 50,000 unit PO DAILY 04/17/21 05/09/21 [Vitamin D3] Mirtazapine [Remeron] 15 mg PO QPM 04/17/21 05/09/21 Ondansetron HCl [Zofran] 8 mg PO RTQ6H PRN 05/09/21 05/09/21 - Allergies Allergies/Adverse Reactions: Allergies Allergy/AdvReac Type Severity Reaction Status Date / Time No Known Drug Allergies Allergy Verified 05/09/21 23:13 - Social History Does the pt smoke?: No Smoking Status: Never smoker Does the pt drink ETOH?: No Does the pt have substance abuse?: No - Immunizations Immunizations are current?: Yes - POLST Patient has POLST: No POLST Status: Full Code PD ED PE NORMAL - Vitals Vital signs reviewed: Yes - General General: Alert and oriented X 3, No acute distress, Well developed/nourished - HEENT HEENT: Atraumatic, PERRL, EOMI - Neck Neck: Supple, no meningeal sign, No bony TTP - Cardiac Cardiac: RRR, No murmur - Respiratory Respiratory: No respiratory distress, Clear bilaterally - Abdomen Abdomen: Normal bowel sounds, Soft, Non distended, No organomegaly, Other (There is a well-healed ostomy in the left lower quadrant without signs of inflammation there is scant amount of stool in the bag. There is a Band-Aid over a blind stoma on the right lower abdomen. 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 2-12 intact, No motor deficit, No sensory deficit, Normal speech Eye Opening: Spontaneous Motor: Obeys Commands Verbal: Oriented GCS Score: 15 - Psych Psych: Normal mood, Normal affect Results - Vitals Vitals: Vital Signs - 24 hr 05/09/21 05/10/21 05/10/21 23:05 00:13 00:32 Temperature 37.1 C Heart Rate 97 84 79 Respiratory 18 18 Rate Blood Pressure 160/102 H 167/93 H 157/107 H O2 Saturation 99 94 96 Oxygen O2 Source Room air - Labs Labs: Laboratory Tests 05/09/21 05/09/21 05/09/21 23:22 23:22 23:51 WBC 9.3 RBC 3.98 L Hgb 12.2 Hct 38.3 MCV 96.2 MCH 30.7 MCHC 31.9 L RDW 14.5 Plt Count 236 MPV 10.0 Neut # (Auto) 6.4 Lymph # (Auto) 1.9 Lassen # (Auto) 0.7 Eos # (Auto) 0.3 Baso # (Auto) 0.0 Absolute Nucleated RBC 0.00 Nucleated RBC % 0.0 Sodium 135 Potassium 3.8 Chloride 101 Carbon Dioxide 26 Anion Gap 8.0 BUN 26 H Creatinine 0.8 Estimated GFR (MDRD) 91 Glucose 98 Calcium 9.6 Total Bilirubin 0.3 AST 22 ALT 17 Alkaline Phosphatase 96 Total Protein 7.9 Albumin 4.5 Globulin 3.4 Albumin/Globulin Ratio 1.3 Lipase 26 Urine Color YELLOW Urine Clarity CLEAR Urine pH 6.0 Ur Specific [place] 1.020 Urine Protein NEGATIVE Urine Glucose (UA) NEGATIVE Urine Ketones NEGATIVE Urine Occult Blood NEGATIVE Urine Nitrite NEGATIVE Urine Bilirubin NEGATIVE Urine Urobilinogen 0.2 (NORMAL) Ur Leukocyte Esterase TRACE H Urine RBC None Seen Urine WBC 0-3 Ur Squamous Epith Cells RARE Squamous Urine Bacteria Rare Ur Microscopic Review INDICATED Urine Culture Comments INDICATED Nasal Adenovirus (PCR) Nasal B. parapertussis DNA (PCR) Nasal Coronavir 229E PCR Nasal Coronavir HKU1 PCR Nasal Coronavir NL63 PCR Nasal Coronavir OC43 PCR Nasal Enterovir/Rhinovir PCR Nasal Influenza B PCR Nasal Influenza A PCR Nasal Parainfluen 1 PCR Nasal Parainfluen 2 PCR Nasal Parainfluen 3 PCR Nasal Parainfluen 4 PCR Nasal RSV (PCR) Nasal B.pertussis DNA PCR Nasal C.pneumoniae (PCR) [place] Human Metapneumo PCR Nasal M.pneumoniae (PCR) Nasal SARS-CoV-2 (PCR) 05/10/21 01:05 WBC RBC Hgb Hct MCV MCH MCHC RDW Plt Count MPV Neut # (Auto) Lymph # (Auto) Lassen # (Auto) Eos # (Auto) Baso # (Auto) Absolute Nucleated RBC Nucleated RBC % Sodium Potassium Chloride Carbon Dioxide Anion Gap BUN Creatinine Estimated GFR (MDRD) Glucose Calcium Total Bilirubin AST ALT Alkaline Phosphatase Total Protein Albumin Globulin Albumin/Globulin Ratio Lipase Urine Color Urine Clarity Urine pH Ur Specific [place] Urine Protein Urine Glucose (UA) Urine Ketones Urine Occult Blood Urine Nitrite Urine Bilirubin Urine Urobilinogen Ur Leukocyte Esterase Urine RBC Urine WBC Ur Squamous Epith Cells Urine Bacteria Ur Microscopic Review Urine Culture Comments Nasal Adenovirus (PCR) NOT DETECTED Nasal B. parapertussis DNA (PCR) NOT DETECTED Nasal Coronavir 229E PCR NOT DETECTED Nasal Coronavir HKU1 PCR NOT DETECTED Nasal Coronavir NL63 PCR NOT DETECTED Nasal Coronavir OC43 PCR NOT DETECTED Nasal Enterovir/Rhinovir PCR NOT DETECTED Nasal Influenza B PCR NOT DETECTED Nasal Influenza A PCR NOT DETECTED Nasal Parainfluen 1 PCR NOT DETECTED Nasal Parainfluen 2 PCR NOT DETECTED Nasal Parainfluen 3 PCR NOT DETECTED Nasal Parainfluen 4 PCR NOT DETECTED Nasal RSV (PCR) NOT DETECTED Nasal B.pertussis DNA PCR NOT DETECTED Nasal C.pneumoniae (PCR) NOT DETECTED [place] Human Metapneumo PCR NOT DETECTED Nasal M.pneumoniae (PCR) NOT DETECTED Nasal SARS-CoV-2 (PCR) NOT DETECTED - Rads (name of study) abdomen Radiology: Prelim report reviewed (Impression: Colonic dilation from the splenic flexure to rectum. Question developing distal obstruction.), EMP read indepedently, See rad report PD MEDICAL DECISION MAKING - ED course Complexity details: reviewed old records, reviewed results, re-evaluated patient, considered differential, d/w patient ED course: 55-year-old female with a history of intestinal scleroderma has a history of pseudoobstruction when eating food and she is requesting treatment by protocol. Protocol includes Dilaudid Zofran and Benadryl as well as an NG tube. NG tube placed a plain film shows colonic dilation and she is administered 2 mg Dilaudid 8 mg of Zofran and 25 mg of Benadryl. She has required overnight hospitalization a number of times this year. She has a problem with distraction and swallowing food. Dr. Delgado is consulted in the case and graciously agrees to care for the patient in the hospital Departure - Departure Disposition: ED Place in Observation Clinical Impression: Acute pseudo-obstruction of bowel Condition: Stable Discharge Date/Time: 05/10/21 02:17
[2021-05-10 00:20] LABS: BILIRUBIN,URINE NEGATIVE (NEGATIVE); GLUCOSE, URINE (UA) NEGATIVE (NEGATIVE); KETONES,URINE (UA) NEGATIVE (NEGATIVE); LEUKOCYTE ESTERASE, URINE TRACE (NEGATIVE); NITRITE,URINE NEGATIVE (NEGATIVE); OCCULT BLOOD,URINE NEGATIVE (NEGATIVE); PROTEIN,URINE NEGATIVE (NEGATIVE); UROBILINOGEN,URINE 0.2 (NORMAL) E.U./dL (NORMAL)
[2021-05-10 00:29] LABS: BACTERIA,URINE Rare /HPF (None Seen); CLARITY,URINE CLEAR (CLEAR); RBC,URINE None Seen /HPF (0-5); SQUAMOUS EPITHELIAL CELL,UR RARE Squamous (<= Few); WBC,URINE 0-3 /HPF (0-5)
[2021-05-10] MEDS ORDERED: LIDOCAINE JELLY 2% 6 ML JEL.PF.APP TOP STA (00:47)
[2021-05-10] MEDS ORDERED: PROCHLORPERAZINE 10 MG/2 ML VIAL IVP PRN (01:06)
[2021-05-10] MEDS ORDERED: ACETAMINOPHEN 325 MG TABLET PO PRN (01:06)
[2021-05-10] MEDS ORDERED: ONDANSETRON 4 MG/2 ML VIAL IVP PRN (01:06)
[2021-05-10] MEDS ORDERED: oxyCODONE 5 MG TABLET PO PRN (01:06)
--- NOTE | 2021-05-10 01:11 | HISTORY & PHYSICAL EXAMINATION ---
Chief Complaint - Chief Complaint Chief Complaint: Abdominal pain with nausea/vomiting. History of Present Illness - Admitted From Admitted From:: Home - History Obtained From Records Reviewed: Yes History obtained from: Patient, ER Physician, EMR - History of Present Illness HPI Comment/Other: This is a 55-year-old female with a past medical history significant for scleroderma involving the GI tract who has recurrent episodes of bowel obstruction. She presents today complaining of abdominal pain associate with nausea and vomiting that began this evening. She states for the past week she has been trying to chew and spit technique where she does not swallow her food. She was doing this at about 6 PM while eating some shrimp. Unfortunately, she states she had a meeting with someone in [facility] and she lost her focus and swallowed some food. She reports that shortly after she developed left upper quadrant abdominal pain as well as multiple episodes of nonbloody emesis. She also reports decreased output from her ileostomy. She has not been hospitalized since she was here April 16 when she was hospitalized for 1 night. She normally lives in [place], [place] but she returned to [facility] today to spend a week with her family. She reports no fevers, chills, chest pain, dyspnea. In the emergency department, she had abdominal x-ray which was concerning for obstruction. She was given antiemetics with Zofran, Dilaudid and NG tube was placed. Given the above findings, medicine was consulted for admission. 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 Both of her parents in the early 60s. Her mother from renal failure and her father from lung cancer. They were both smokers. Living Situation: With family Social History Notes: She lives in [place], [place]. She is visiting her brother and [id number] here in [place], [place]. 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 She does not smoke or drink alcohol. - POLST Patient has POLST: No POLST Status: Full Code Meds/Allgy - Home Medications Home Medications: Ambulatory Orders Medication Instructions Recorded Confirmed Gabapentin [Neurontin] 900 mg PO 0900,1600,2100 10/02/18 05/09/21 Methotrexate Sodium/Pf 25 mg SUBQ Q7D 10/02/18 05/09/21 [Methotrexate 25 mg/ml Vial] Folic Acid 1 mg PO DAILY 02/07/21 05/09/21 Ursodiol [Hieu] 750 mg PO DAILY 02/07/21 05/09/21 Omeprazole Magnesium 20 mg PO DAILY 02/08/21 05/09/21 Venlafaxine [Effexor] 100 mg PO TID 02/08/21 05/09/21 oxyCODONE [Roxicodone] 10 mg PO BID PRN 02/08/21 05/09/21 Cholecalciferol (Vitamin D3) 50,000 unit PO DAILY 04/17/21 05/09/21 [Vitamin D3] Mirtazapine [Remeron] 15 mg PO QPM 04/17/21 05/09/21 Ondansetron HCl [Zofran] 8 mg PO RTQ6H PRN 05/09/21 05/09/21 - Allergies Allergies/Adverse Reactions: Allergies Allergy/AdvReac Type Severity Reaction Status Date / Time No Known Drug Allergies Allergy Verified 05/09/21 23:13 Review of Systems - Constitutional Constitutional: denies: Fever, Chills, Poor appetite - Cardiovascular Cariovascular: denies: Chest pain, Exertional dyspnea, Decr. exercise tolerance - Respiratory Respiratory: denies: Cough, SOB at rest, SOB with exertion - Gastrointestinal Gastrointestinal: reports: Abdominal pain, Nausea, Vomiting. denies: Bloody stools, Norris blood emesis, Coffee grounds emesis - Genitourinary Genitourinary: denies: Dysuria, Frequency, Urgency, Hematuria - Integumentary Integumentary: denies: Rash - Neurological Neurological: denies: General weakness, Focal weakness - Hematologic/Lymphatic Hematologic/Lymphatic: denies: Anemia, Bleeding tendencies - All Other Systems All Other Systems: reports: Reviewed and negative Prior Level of Functionality: She is independent with her ADLs Exam - Vital Signs Reviewed Vital Signs: Yes Vital Signs: Vital Signs x48h Temp Pulse Resp BP Pulse Ox 05/10/21 00:32 79 18 157/107 H 96 05/10/21 00:13 84 167/93 H 94 05/09/21 23:05 37.1 C 97 18 160/102 H 99 - Physical Exam General Appearance: positive: Alert, Mild distress Eyes Bilateral: positive: Normal inspection, Conjunctivae nml ENT: positive: ENT inspection nml, Other (NG tube in place.) Neck: positive: Nml inspection Respiratory: positive: No respiratory distress. negative: Wheezes, Rales Cardiovascular: positive: Regular rate & rhythm, No murmur. negative: Tachycardia Abdomen: positive: No distention, Tenderness (Diffuse tenderness but predominantly in left upper quadrant.), Abnml bowel sounds (Hypoactive.), Other (Ileostomy with minimal output.). negative: Non-tender Skin: positive: Warm, Dry Extremities: positive: No pedal edema Neurologic/Psychiatric: negative: Disoriented to person, Disoriented to place Conclusion/Plan - Problem List (1) Acute pseudo-obstruction of bowel Conclusion/Plan: She once again presents with what appears to be obstruction secondary to food intake in a patient who has scleroderma involving the bowel. Her abdominal film consistent with obstruction. Given her ongoing vomiting and abdominal pain, we will place her in observation for further management. An NG tube has place and will keep this to low intermittent suction. N.p.o. status. Lactated Ringer's for IV fluids. Dilaudid IV as needed for pain control. Zofran IV as needed for nausea. We will resume her home TPN tomorrow. We will ask general surgery to see her later today. (2) Scleroderma involving bowel Conclusion/Plan: We will continue her home medications once she is taking p.o. She will continue to follow-up with her substation technician on an outpatient basis. We once again discussed the importance of a strict diet. She is supposed to be on oral liquids only and TPN. - Lab Results Lab results reviewed: Yes Fish Bones: 05/10/21 04:40 05/10/21 04:40 - Diagnostic Imaging Results Diagnostic Imaging Results: positive: Prelim report reviewed Core Measures - Anticipated LOS I expect patient to be DC'd or transferred within 96 hours.: Yes - Issues Hospital Issues and Management Plan: 55-year-old female with a history of scleroderma involving the GI tract and recurrent obstructions presents with abdominal pain and found to have likely obstruction. Will place in observation for NG tube, pain control. - DVT/VTE - Prophylaxis VTE/DVT Device ordered at admit?: Yes VTE/DVT Prophylaxis med ordered at admit?: Yes
[2021-05-10] MEDS ORDERED: HYDROmorphone 1 MG/ML CARPUJECT IVP STA (01:51)
[2021-05-10 02:09] LABS: B. PARAPERTUSSIS- RESP PCR PAN NOT DETECTED; B. PERTUSSIS- RESP PCR PANEL NOT DETECTED; C. PNEUMONIAE- RESP PCR PANEL NOT DETECTED; CORONAVIRUS 229E-RESP PCR NOT DETECTED; CORONAVIRUS HKU1-RESP PCR NOT DETECTED; CORONAVIRUS NL63-RESP PCR NOT DETECTED; CORONAVIRUS OC43-RESP PCR NOT DETECTED; HUMAN METAPNEUMOVIRUS NOT DETECTED; INFLUENZA A- RESP PCR PANEL NOT DETECTED; INFLUENZA B - RESP PCR PANEL NOT DETECTED; M. PNEUMONIAE- RESP PCR PANEL NOT DETECTED; PARAINFLUENZA VIRUS 1 NOT DETECTED; PARAINFLUENZA VIRUS 2 NOT DETECTED; PARAINFLUENZA VIRUS 3 NOT DETECTED; PARAINFLUENZA VIRUS 4 NOT DETECTED; RHINOVIRUS/ENTEROVIRUS NOT DETECTED; RSV- RESP PCR PANEL NOT DETECTED; SARS-CoV-2 -RESP PCR PANEL NOT DETECTED
[2021-05-10] MEDS: LACTATED RINGERS 1,000 ML IV SCH ×2 (02:29→15:22)
[2021-05-10] MEDS: SODIUM CHLORIDE FLUSH 0.9% 10 ML SYRINGE IVP PRN ×2 (04:35→15:27)
[2021-05-10] MEDS: HYDROmorphone 0.5 MG/0.5 ML SYRINGE IVP PRN ×2 (04:35→08:40)
[2021-05-10 04:52] LABS: BASOPHILS % (AUTO) 0.2 %; EOSINOPHILS # (AUTO) 0.4 10^3/uL (0.0-0.7); EOSINOPHILS % (AUTO) 4.1 %; HCT - HEMATOCRIT 36.1 % (37.0-47.0); HGB - HEMOGLOBIN 11.4 g/dL (12.0-16.0); MEAN CORPUSCULAR HEMOGLOBIN 30.6 pg (27.0-31.0); MEAN CORPUSCULAR HGB CONC 31.6 g/dL (32.0-36.0); MEAN CORPUSCULAR VOLUME 96.8 fL (81.0-99.0); MEAN PLATELET VOLUME 9.7 fL (7.9-10.8); MONOCYTES # (AUTO) 0.7 10^3/uL (0.0-1.0); MONOCYTES % (AUTO) 8.6 %; NEUTROPHILS # (AUTO) 5.4 10^3/uL (1.5-6.6); NEUTROPHILS % (AUTO) 63.6 %; PLT - PLATELET COUNT 204 10^3/uL (130-450); RED BLOOD COUNT 3.73 10^6/uL (4.20-5.40); RED CELL DISTRIBUTION WIDTH 14.3 % (12.0-15.0); WHITE BLOOD COUNT 8.5 x10^3/uL (4.8-10.8)
[2021-05-10 05:02] LABS: CALCIUM 8.9 mg/dL (8.5-10.3); CREATININE 0.7 mg/dL (0.4-1.0); POTASSIUM 4.2 mmol/L (3.5-5.0)
--- NOTE | 2021-05-10 08:25 | XRAY Report ---
PROCEDURE: Chest for Line Placement INDICATIONS: NG tube placement TECHNIQUE: One view of the chest was acquired. COMPARISON: Chest single view 02/10/2021 FINDINGS: Surgical changes and devices: Esophagogastric tube extends into the gastric body. Central line tip ex tends into the distal SVC.. Lungs and pleura: No pleural effusions or pneumothorax. Lungs are mildly abnormal with reduced insp iratory volumes crowding the bronchovascular markings. Mediastinum: Mediastinal contours appear normal. Heart size is normal. Bones and chest wall: No suspicious bony lesions. Overlying soft tissues appear unremarkable. IMPRESSION: Esophagogastric tube positioning normal, central line tip in the distal SVC without pneumothorax. Red uced inspiration. Reviewed by: Ruben Veliz MD on 05/10/2021 8:24 AM PDT Approved by: Ruben Veliz MD on 05/10/2021 8:24 AM PDT Station ID: [id number]
--- NOTE | 2021-05-10 08:33 | XRAY Report ---
PROCEDURE: Abdomen 2 View X-Ray INDICATIONS: abdominal pain pseudo-obstruction TECHNIQUE: 3 views of the abdomen were acquired. COMPARISON: Similar abdomen plain films at the end of March this year. FINDINGS: Surgical changes and devices: None. Bowel: No pneumoperitoneum. The small bowel gas pattern is normal. Colonic gas is relatively promi nent involving the splenic flexure and descending Soft tissues: No masses; visualized solid organ contours appear normal in size. No suspicious abdom inal calcifications. Bones: No suspicious bony abnormalities. IMPRESSION: Etiology of asymmetric prominence of colonic bowel gas within the left colon is indeterm inate, and follow-up by endoscopy or barium enema be warranted unless this is known clinically to be a benign process. No free air found. Reviewed by: Ruben Veliz MD on 05/10/2021 8:31 AM PDT Approved by: Ruben Veliz MD on 05/10/2021 8:31 AM PDT Station ID: [id number]
[2021-05-10] MEDS ORDERED: SODIUM CHLORIDE FLUSH 0.9% 10 ML SYRINGE IVP SCH (09:00)
[2021-05-10] MEDS ORDERED: HYDROmorphone 2 MG/ML VIAL IVP PRN (10:30)
--- NOTE | 2021-05-10 11:31 | Discharge Plan ---
Discharge Plan Problem Reviewed?: Yes Disposition: Home, Self Care Condition: Stable Activity Restrictions: Activity as Tolerated Shower Restrictions: No (fall precaution) Instruction Topics: Life Support Tx Choices, Catheter TPN Flush Dc, Nutrition Total Parenteral Ch Health Concerns: Unfortunately, your medical situation request you to have total parenteral TPN, please DO NOT have any oral food now. You may resume your home medication schedule. Plan of Treatment: as the above Care Goals: stabilization and improvement of your medical conditions Assessment: discussed the care plan with you, you verbal state you understood and will followup with the advise. 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 Should your symptoms return or worsen, you may present ER or call 911 for help. No Smoking: If you smoke, Please STOP! Call for help. Follow-up with: MIRANDA CARUSO MD [Primary Care Provider] -
--- NOTE | 2021-05-10 11:43 | DISCHARGE SUMMARY ---
Discharge Summary Admit Date: 05/10/21 Discharge Date: 05/10/21 Discharging Provider: Varghees Sánchez Primary Care Provider: Martín Foley Condition at Discharge: Stable Discharge Disposition: 01 Home, Self Care Discharge Facility Name: home - DIAGNOSES Discharge Diagnoses with Status of Each Condition: (1) Acute pseudo-obstruction of bowel resolved. pt has no more nausea, vomiting, and has bowel movement on his ileuostomy bag. Called surgeon Dr. Cha, she recommend pt can be discharged at this point, emphasize to pt for her strict diet and continue her TPN. Pt verbally state she understood and will not break the strict diet rule again. (2) Scleroderma involving bowel advise pt continue to follow-up with her foreign language interpreter on an outpatient basis. emphasize She is supposed to be on oral liquids only and TPN. (3)chronic pain stable, resume home meds, followup with her PCP for management. - HPI History of Present Illness: refer from Dr. meyers's HPI on 05/10/21 This is a 55-year-old female with a past medical history significant for scleroderma involving the GI tract who has recurrent episodes of bowel obstruction. She presents today complaining of abdominal pain associate with nausea and vomiting that began this evening. She states for the past week she has been trying to chew and spit technique where she does not swallow her food. She was doing this at about 6 PM while eating some shrimp. Unfortunately, she states she had a meeting with someone in [facility] and she lost her focus and swallowed some food. She reports that shortly after she developed left upper quadrant abdominal pain as well as multiple episodes of nonbloody emesis. She also reports decreased output from her ileostomy. She has not been hospitalized since she was here April 16 when she was hospitalized for 1 night. She normally lives in [place], [place] but she returned to [facility] today to spend a week with her family. She reports no fevers, chills, chest pain, dyspnea. In the emergency department, she had abdominal x-ray which was concerning for obstruction. She was given antiemetics with Zofran, Dilaudid and NG tube was placed. Given the above findings, medicine was consulted for admission. - HOSPITAL COURSE Hospital Course: Patient was admitted for nausea, vomiting and significantly reduce bowel output from her ileostomy bag after she ate some shrimp. Patient was put on NG tubal, after the patient had a bowel rest, intravenous IV fluids and ambulation, Patient's symptoms was resolved, patient has no more nausea or vomiting, patient had significantly bowel movement from her ileostomy bag. Consult with surgeon, surgeon recommend pt can be d/c at this point. Emphasized to the patient for stricter diet and TPN. - ALLERGIES Allergies/Adverse Reactions: Allergies Allergy/AdvReac Type Severity Reaction Status Date / Time No Known Drug Allergies Allergy Verified 05/09/21 23:13 - MEDICATIONS Home Medications: Ambulatory Orders Medication Instructions Recorded Confirmed Gabapentin [Neurontin] 900 mg PO 0900,1600,2100 10/02/18 05/09/21 Methotrexate Sodium/Pf 25 mg SUBQ Q7D 10/02/18 05/09/21 [Methotrexate 25 mg/ml Vial] Folic Acid 1 mg PO DAILY 02/07/21 05/09/21 Ursodiol [Hieu] 750 mg PO DAILY 02/07/21 05/09/21 Omeprazole Magnesium 20 mg PO DAILY 02/08/21 05/09/21 Venlafaxine [Effexor] 100 mg PO TID 02/08/21 05/09/21 oxyCODONE [Roxicodone] 10 mg PO BID PRN 02/08/21 05/09/21 Cholecalciferol (Vitamin D3) 50,000 unit PO DAILY 04/17/21 05/09/21 [Vitamin D3] Mirtazapine [Remeron] 15 mg PO QPM 04/17/21 05/09/21 Ondansetron HCl [Zofran] 8 mg PO RTQ6H PRN 05/09/21 05/09/21 - PHYSICAL EXAM AT DISCHARGE General Appearance: positive: No acute distress, Alert. negative: Lethargic Eyes Bilateral: positive: Normal inspection, PERRL, No lid inflammation ENT: positive: ENT inspection nml, No signs of dehydration. negative: Purulent nasal drainage Neck: positive: Nml inspection, Trachea midline. negative: Thyromegaly, Tracheal deviation Respiratory: positive: Chest non-tender, No respiratory distress. negative: Wheezes, Rales Cardiovascular: positive: Regular rate & rhythm, No murmur. negative: Tachycardia, Bradycardia, Systolic murmur, Diastolic murmur Peripheral Pulses: positive: 2+ Abdomen: positive: Non-tender, Nml bowel sounds, No distention. negative: Tenderness Back: positive: Nml inspection Skin: positive: Color nml, Warm, Dry. negative: Cyanosis Extremities: positive: Non-tender, Full ROM, Nml appearance. negative: Calf tenderness Neurologic/Psychiatric: positive: Oriented x3, Motor nml, Sensation nml, Mood/affect nml. negative: Weakness, Sensory loss, Facial droop, Slurred/abnml speech, Depressed mood/affect - LABS Result Diagrams: 05/10/21 04:40 05/10/21 04:40 - FOLLOW UP Follow Up: emphasize and educate to pt, she is supposed to be on oral liquids only and TPN. You may followup with your PCP in one to two weeks, followup with [employer] as out-pt. Should your symptoms return or worsen, you may present ER or call 911 for help. - TIME SPENT Time Spent in Discharge (Minutes): 30
[2021-05-10 12:49] VITALS: BP 109/76
--- NOTE | 2021-05-10 12:58 | PHARMACY PROGRESS NOTE ---
- Best Possible Medication History Admit Date and Time: 05/10/21 0106 Processed by: Nursing Medication History completed: Yes As the person ultimately responsible for medication therapy, providers are able to order a medication from an existing home medication list in [facility] via the "Reconcile Routine" prior to Confirmation of that medication by whanau support worker. Such practice is discouraged except when the physician, in their clinical judgment, deems that a medical need exists for a medication without regard to previous use.
== END 2021-05-10 16:30 | disposition home or self-care (01) ==
LOC: ED 23:03 → MS2 05-10 01:06
PROVIDERS: ADMIT Internal Medicine; ATTEND Nurse Practitioner Gerontology
DX: K56.699 Other intestinal obstruction unspecified as to partial versus complete obstruction (principal); M34.89 Other systemic sclerosis; Z93.2 Ileostomy status; G89.29 Other chronic pain; F41.9 Anxiety disorder, unspecified; Z91.11 Patient's noncompliance with dietary regimen; Z79.899 Other long term (current) drug therapy
CPT/HCPCS: 0202U; 36415; 43753; 71045; 74019; 80048; 80053; 81001; 83690; 83735; 85025; 87086; 96374; 96375; 96376; 99284; 99285; G0378; J1170; J1200; J7120; 81003

== ENCOUNTER 2021-12-07 16:20 | Emergency (ER) | payer OTHER ==
[2021-12-07] MEDS: ONDANSETRON ODT 4 MG TABLET TL STA (16:51)
[2021-12-07 17:02] LABS: BASOPHILS % (AUTO) 0.3 %; EOSINOPHILS # (AUTO) 0.3 10^3/uL (0.0-0.7); EOSINOPHILS % (AUTO) 2.5 %; HCT - HEMATOCRIT 40.1 % (37.0-47.0); HGB - HEMOGLOBIN 12.2 g/dL (12.0-16.0); LYMPHOCYTES # (AUTO) 1.8 10^3/uL (1.5-3.5); LYMPHOCYTES % (AUTO) 16.9 %; MEAN CORPUSCULAR HEMOGLOBIN 27.4 pg (27.0-31.0); MEAN CORPUSCULAR HGB CONC 30.4 g/dL (32.0-36.0); MEAN CORPUSCULAR VOLUME 90.1 fL (81.0-99.0); MEAN PLATELET VOLUME 10.2 fL (7.9-10.8); MONOCYTES # (AUTO) 0.9 10^3/uL (0.0-1.0); MONOCYTES % (AUTO) 8.6 %; NEUTROPHILS # (AUTO) 7.5 10^3/uL (1.5-6.6); NEUTROPHILS % (AUTO) 71.3 %; PLT - PLATELET COUNT 288 10^3/uL (130-450); RED BLOOD COUNT 4.45 10^6/uL (4.20-5.40); RED CELL DISTRIBUTION WIDTH 20.1 % (12.0-15.0); WHITE BLOOD COUNT 10.6 x10^3/uL (4.8-10.8)
[2021-12-07 17:15] LABS: ALBUMIN 4.3 g/dL (3.2-5.5); BILIRUBIN,TOTAL 0.4 mg/dL (0.2-1.0); CALCIUM 9.7 mg/dL (8.5-10.3); CREATININE 0.9 mg/dL (0.4-1.0); POTASSIUM 3.8 mmol/L (3.5-5.0); TOTAL PROTEIN 8.4 g/dL (6.7-8.2)
--- NOTE | 2021-12-07 18:20 | ED Physician Documentation ---
History of Present Illness - Stated complaint Stated Complaint: N/V ABD DIST,PX - Chief complaint Chief Complaint: Abd Pain - Additonal information Additional information: 56-year-old female presents emergency department for evaluation of left-sided abdominal pain and uncontrolled nausea and vomiting. She does have a history of Raynaud's disorder as well as severe scleroderma. It is secondary to the scleroderma for which she ultimately ended up with a left-sided ileostomy. Patient typically receives TPN for 20 hours a day. She self-reports herself as being a food addict. She also reports that she is never allowed to take anythin g by mouth but yesterday in an attempt to have 1 last her raw she ate a sandwich that is called a grinder outside diameter as well as had pizza. This was about 8 PM. Around 10 PM she started vomiting uncontrollably. That she repeat ports to the emergency department. Since her symptoms began she has had little to no ileostomy output. No fevers. Fully vaccinated and boosted for COVID-19 though she did have a m ild COVID infection in late October. Review of Systems Constitutional: denies: Fever, Chills Eyes: reports: Reviewed and negative Nose: reports: Reviewed and negative Throat: reports: Reviewed and negative Cardiac: reports: Reviewed and negative Respiratory: reports: Reviewed and negative GI: reports: Abdominal Pain, Nausea, Vomiting : reports: Reviewed and negative Skin: reports: Reviewed and negative Musculoskeletal: reports: Reviewed and negative Neurologic: reports: Reviewed and negative PD PAST MEDICAL HISTORY - Past Medical History Cardiovascular: Hypertension Respiratory: None Neuro: None Endocrine/Autoimmune: None, Other GI: Other : None HEENT: None Psych: Anxiety Musculoskeletal: None Derm: Other - Past Surgical History Past Surgical History: Yes General: Bowel surgery, Gastric surgery, 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: Tubal ligation HEENT: Tonsil/Adenoidectomy - Present Medications Home Medications: Ambulatory Orders Medication Instructions Recorded Confirmed Gabapentin [Neurontin] 900 mg PO 0900,1600,2100 10/02/18 05/09/21 Methotrexate Sodium/Pf 25 mg SUBQ Q7D 10/02/18 05/09/21 [Methotrexate 25 mg/ml Vial] Folic Acid 1 mg PO DAILY 02/07/21 05/09/21 Ursodiol [Hieu] 750 mg PO DAILY 02/07/21 05/09/21 Omeprazole Magnesium 20 mg PO DAILY 02/08/21 05/09/21 Venlafaxine [Effexor] 100 mg PO TID 02/08/21 05/09/21 oxyCODONE [Roxicodone] 10 mg PO BID PRN 02/08/21 05/09/21 Cholecalciferol (Vitamin D3) 50,000 unit PO DAILY 04/17/21 05/09/21 [Vitamin D3] Mirtazapine [Remeron] 15 mg PO QPM 04/17/21 05/09/21 Ondansetron HCl [Zofran] 8 mg PO RTQ6H PRN 05/09/21 05/09/21 - Allergies Allergies/Adverse Reactions: Allergies Allergy/AdvReac Type Severity Reaction Status Date / Time No Known Drug Allergies Allergy Verified 12/07/21 16:45 - Social History Does the pt smoke?: No Smoking Status: Never smoker Does the pt drink ETOH?: No Does the pt have substance abuse?: No - Immunizations Immunizations are current?: Yes - POLST Patient has POLST: No POLST Status: Full Code PD ED PE EXPANDED - General General: Alert, No acute distress - Cardiac Cardiac: Regular Rate, Radial strong equal, Pedal strong equal, Cap refill < 2 sec, Other (Warm fingers and extremities. 2+ radial pulse bilaterally.). No: Murmur Present - Respiratory Respiratory: Clear to ausultation vick. No: Distress, Labored - Abdomen Abdomen: Tender to palpation. No: Rebound, Guarding (left sided TTP; Left-sided ileostomy. Stoma is pink. No ostomy output. Small fistula right lower quadrant of the abdomen with scant amount of drainage. Midline vertical incision well approximated and healed scar.) - Back Back: Normal exam, Normal ROM - Derm Derm: Normal color, Warm and dry - Neuro Neuro: Alert and Oriented X 3, CNII-XII intact - GCS Eye Opening: Spontaneous Motor: Obeys Commands Verbal: Oriented Total: 15 Results - Vitals Vitals: Vital Signs - 24 hr 12/07/21 12/07/21 16:36 19:00 Temperature 36.9 C Heart Rate 76 Respiratory 18 20 Rate Blood Pressure 145/82 H O2 Saturation 100 Oxygen O2 Source Room air - Labs Labs: Laboratory Tests 01/20/22 01/20/22 01/20/22 16:55 16:55 16:55 WBC 10.6 RBC 4.45 Hgb 12.2 Hct 40.1 MCV 90.1 MCH 27.4 MCHC 30.4 L RDW 20.1 H Plt Count 288 MPV 10.2 Neut # (Auto) 7.5 H Lymph # (Auto) 1.8 [place] # (Auto) 0.9 Eos # (Auto) 0.3 Baso # (Auto) 0.0 Absolute Nucleated RBC 0.00 Nucleated RBC % 0.0 Sodium 133 L Potassium 3.8 Chloride 102 Carbon Dioxide 23 Anion Gap 8.0 BUN 22 H Creatinine 0.9 Estimated GFR (MDRD) 79 L Glucose 111 H Lactic Acid 0.9 Calcium 9.7 Total Bilirubin 0.4 AST 23 ALT 14 Alkaline Phosphatase 99 Total Protein 8.4 H Albumin 4.3 Globulin 4.1 Albumin/Globulin Ratio 1.0 Lipase 24 Urine Color Urine Clarity Urine pH Ur Specific Mark Urine Protein Urine Glucose (UA) Urine Ketones Urine Occult Blood Urine Nitrite Urine Bilirubin Urine Urobilinogen Ur Leukocyte Esterase Ur Microscopic Review Urine Culture Comments Nasal Adenovirus (PCR) Nasal B. parapertussis DNA (PCR) Nasal Coronavir 229E PCR Nasal Coronavir HKU1 PCR Nasal Coronavir NL63 PCR Nasal Coronavir OC43 PCR Nasal Enterovir/Rhinovir PCR Nasal Influenza B PCR Nasal Influenza A PCR Nasal Parainfluen 1 PCR Nasal Parainfluen 2 PCR Nasal Parainfluen 3 PCR Nasal Parainfluen 4 PCR Nasal RSV (PCR) Nasal B.pertussis DNA PCR Nasal C.pneumoniae (PCR) [place] Human Metapneumo PCR Nasal M.pneumoniae (PCR) Nasal SARS-CoV-2 (PCR) 12/07/21 12/07/21 18:38 18:45 WBC RBC Hgb Hct MCV MCH MCHC RDW Plt Count MPV Neut # (Auto) Lymph # (Auto) [place] # (Auto) Eos # (Auto) Baso # (Auto) Absolute Nucleated RBC Nucleated RBC % Sodium Potassium Chloride Carbon Dioxide Anion Gap BUN Creatinine Estimated GFR (MDRD) Glucose Lactic Acid Calcium Total Bilirubin AST ALT Alkaline Phosphatase Total Protein Albumin Globulin Albumin/Globulin Ratio Lipase Urine Color YELLOW Urine Clarity CLEAR Urine pH 6.0 Ur Specific Mark 1.010 Urine Protein NEGATIVE Urine Glucose (UA) NEGATIVE Urine Ketones TRACE Urine Occult Blood NEGATIVE Urine Nitrite NEGATIVE Urine Bilirubin NEGATIVE Urine Urobilinogen 0.2 (NORMAL) Ur Leukocyte Esterase TRACE H Ur Microscopic Review INDICATED Urine Culture Comments Not Reportable Nasal Adenovirus (PCR) NOT DETECTED Nasal B. parapertussis DNA (PCR) NOT DETECTED Nasal Coronavir 229E PCR NOT DETECTED Nasal Coronavir HKU1 PCR NOT DETECTED Nasal Coronavir NL63 PCR NOT DETECTED Nasal Coronavir OC43 PCR NOT DETECTED Nasal Enterovir/Rhinovir PCR NOT DETECTED Nasal Influenza B PCR NOT DETECTED Nasal Influenza A PCR NOT DETECTED Nasal Parainfluen 1 PCR NOT DETECTED Nasal Parainfluen 2 PCR NOT DETECTED Nasal Parainfluen 3 PCR NOT DETECTED Nasal Parainfluen 4 PCR NOT DETECTED Nasal RSV (PCR) NOT DETECTED Nasal B.pertussis DNA PCR NOT DETECTED Nasal C.pneumoniae (PCR) NOT DETECTED [place] Human Metapneumo PCR NOT DETECTED Nasal M.pneumoniae (PCR) NOT DETECTED Nasal SARS-CoV-2 (PCR) NOT DETECTED - Rads (name of study) CT abd Radiology: Final report received (Persistent segmental distention of the small bowel without a focal transition point likely reflecting pseudoobstruction. Findings are similar in appearance compared to the prior study. Posterior groundglass opacities in the lung are redemonstrated. Findings are nonspecific and may represent scarr) PD MEDICAL DECISION MAKING - ED course Complexity details: reviewed old records, reviewed results, re-evaluated patient, d/w patient, d/w independent beauty consultant (Dr. Truong) ED course: 56-year-old female who has a history of scleroderma as well as a left-sided ileostomy due to bowel obstruction presents the emergency department with nausea and vomiting. She knows that she is to have nothing to eat by mouth but she reports herself as having an addiction to food. Last night in an attempt to do a last her all she ate pizza and a large [place] sandwich and she began vomiting. Today her screening labs do not show any acute worrisome findings. She was given Zofran in the emergency department and has not continued to vomit. A CT scan does show an essentially unchanged pseudoobstruction with no clear transition point within the small bowel. The patient was hoping to be admitted to the hospital. This case was however discussed with her hospitalist Dr. Pierre who felt that if the patient was no longer vomiting in the ER she did not need to be admitted. I discussed this with the patient and told her that she is to avoid further oral intake by mouth. She reports having Zofran at home and is feeling better thus she will be discharged. In review of her old records it does appear that there may be a psychological inclination for the patient to eat when she knows that she should not but reassuringly given her labs and her unchanged CT appearance she does not have an acute small bowel obstruction. Emergent return precautions were discussed. Departure - Departure Disposition: Home, Self Care Clinical Impression: Pseudo-obstruction of intestine Nausea and vomiting Qualifiers: Vomiting type: unspecified Qualified Code(s): R11.2 - Nausea with vomiting, unspecified Condition: Stable Record reviewed to determine appropriate education?: Yes Comments: Markus you were seen today in the emergency department for vomiting after eating last night. You do have a history of pseudoobstruction in your small intestine due to your history of scleroderma. You knew that you should not eat yet you did eat pizza and a sandwich anyway. Here in the emergency department you were given some Zofran and you are no longer vomiting. The CT scan does show pseudoobstruction of the small intestine but this is unchanged from previous CT scans. Your labs are all essentially normal. There is no indication to admit you to the hospital today. You are encouraged to avoid eating any further by mouth. You can continue to take your other previously prescribed medications as well as infuse your TPN at home.. Please continue to take the Zofran that you have at home. If despite the Zofran you continue to vomit then you can return to the emergency department.
[2021-12-07] MEDS: HYDROmorphone 1 MG/ML CARPUJECT IVP STA (18:26)
[2021-12-07] MEDS: diphenhydrAMINE INJ 50 MG/ML VIAL IVP STA (18:26)
[2021-12-07] MEDS ORDERED: iohexoL-300 100 ML VIAL ONE (18:41)
[2021-12-07 19:37] LABS: BILIRUBIN,URINE NEGATIVE (NEGATIVE); GLUCOSE, URINE (UA) NEGATIVE (NEGATIVE); KETONES,URINE (UA) TRACE mg/dL (NEGATIVE); LEUKOCYTE ESTERASE, URINE TRACE (NEGATIVE); NITRITE,URINE NEGATIVE (NEGATIVE); OCCULT BLOOD,URINE NEGATIVE (NEGATIVE); PROTEIN,URINE NEGATIVE (NEGATIVE); UROBILINOGEN,URINE 0.2 (NORMAL) E.U./dL (NORMAL)
[2021-12-07 19:41] LABS: CLARITY,URINE CLEAR (CLEAR)
--- NOTE | 2021-12-07 19:47 | CT Report ---
PROCEDURE: Abdomen/Pelvis W INDICATIONS: n/v hx of pseudobstructions CONTRAST: IV CONTRAST: Isovue 300 ml: 100 PO CONTRAST: *NO PO CONTRAST TECHNIQUE: After the administration of intravenous contrast, 5 mm thick sections acquired from the diaphragms to the symphysis. 5 mm thick coronal and sagittal reformats were acquired. For radiation dose reducti on, the following was used: automated exposure control, adjustment of mA and/or kV according to vamshi ent size. COMPARISON: CT abdomen pelvis 02/08/2021. FINDINGS: Image quality: Excellent. ABDOMEN: Lung bases: There is dependent atelectasis bilaterally. In addition, there are also confluent groundg lass opacities within the posterior lower lobes inferiorly redemonstrated. Heart size is normal. Ther e is fluid distention of the visualized distal esophagus. Solid organs: There is focal fatty infiltration in the anterior left hepatic lobe. Gallbladder appea rs within normal limits. Biliary system is non dilated. Pancreas enhances normally. No adrenal nodu les. Kidneys demonstrate normal size and enhancement, without hydronephrosis. Peritoneum and bowel: Postsurgical changes are redemonstrated status post gastric bypass. Bilateral mid abdominal ostomies are also redemonstrated. There is persistent segmental fluid and gas distentio n of the small bowel in the lower abdomen redemonstrated without a discrete focal transition point. T he findings are similar in degree and extent of involvement compared to the prior study. The colon is normal in caliber with mild colonic wall thickening. No free fluid or air. Nodes and vessels: No retroperitoneal or mesenteric adenopathy by size criteria. Aorta and inferior vena cava are normal in size. Miscellaneous: No ventral hernias. PELVIS: Genitourinary: Bladder wall thickness is normal. Miscellaneous: No inguinal hernias or adenopathy. Bones: No suspicious bony lesions. No vertebral body compression fractures. IMPRESSION: 1. Persistent segmental distention of the small bowel without a focal transition point likely reflect ing pseudoobstruction. Findings are similar in appearance compared to the prior study. 2. Posterior ground glass opacities in the lungs are redemonstrated. Findings are nonspecific and may represent scarring or an inflammatory process such as hypersensitivity pneumonitis. Reviewed by: Paulino Houston MD on 12/07/2021 7:46 PM PST Approved by: Paulino Houston MD on 12/07/2021 7:46 PM PST Station ID: [id number]
[2021-12-07 19:52] LABS: B. PARAPERTUSSIS- RESP PCR PAN NOT DETECTED; B. PERTUSSIS- RESP PCR PANEL NOT DETECTED; C. PNEUMONIAE- RESP PCR PANEL NOT DETECTED; CORONAVIRUS 229E-RESP PCR NOT DETECTED; CORONAVIRUS HKU1-RESP PCR NOT DETECTED; CORONAVIRUS NL63-RESP PCR NOT DETECTED; CORONAVIRUS OC43-RESP PCR NOT DETECTED; HUMAN METAPNEUMOVIRUS NOT DETECTED; INFLUENZA A- RESP PCR PANEL NOT DETECTED; INFLUENZA B - RESP PCR PANEL NOT DETECTED; M. PNEUMONIAE- RESP PCR PANEL NOT DETECTED; PARAINFLUENZA VIRUS 1 NOT DETECTED; PARAINFLUENZA VIRUS 2 NOT DETECTED; PARAINFLUENZA VIRUS 3 NOT DETECTED; PARAINFLUENZA VIRUS 4 NOT DETECTED; RHINOVIRUS/ENTEROVIRUS NOT DETECTED; RSV- RESP PCR PANEL NOT DETECTED; SARS-CoV-2 -RESP PCR PANEL NOT DETECTED
[2021-12-07] MEDS: iohexoL-300 100 ML VIAL IVP ONE (20:12)
[2021-12-07 20:16] LABS: BACTERIA,URINE Few /HPF (None Seen); MUCUS,URINE Few Strands; RBC,URINE 0-5 /HPF (0-5); SQUAMOUS EPITHELIAL CELL,UR MOD Squamous (<= Few)
[2021-12-07 20:50] VITALS: BP 136/103
== END 2021-12-07 20:50 | disposition home or self-care (01) ==
LOC: ED 16:20
DX: K56.699 Other intestinal obstruction unspecified as to partial versus complete obstruction (principal); R11.2 Nausea with vomiting, unspecified; I10 Essential (primary) hypertension; Z20.822 Contact with and (suspected) exposure to COVID-19
CPT/HCPCS: 0202U; 36415; 74177; 80053; 81001; 83605; 83690; 85025; 96374; 99283; 99284; J1170; J1200; Q0162; Q9967; 81003; 87086

== ENCOUNTER 2023-03-03 17:36 | Emergency (ER) | payer OTHER ==
[2023-03-03 19:03] LABS: BASOPHILS % (AUTO) 0.2 %; HCT - HEMATOCRIT 41.8 % (37.0-47.0); LYMPHOCYTES % (AUTO) 6.2 %; MEAN CORPUSCULAR HEMOGLOBIN 23.9 pg (27.0-31.0); MEAN CORPUSCULAR HGB CONC 31.1 g/dL (32.0-36.0); MEAN CORPUSCULAR VOLUME 76.7 fL (81.0-99.0); MEAN PLATELET VOLUME 9.4 fL (7.9-10.8); MONOCYTES % (AUTO) 7.9 %; NEUTROPHILS % (AUTO) 84.8 %; PLT - PLATELET COUNT 481 10^3/uL (130-450); RED BLOOD COUNT 5.45 10^6/uL (4.20-5.40); RED CELL DISTRIBUTION WIDTH 18.6 % (12.0-15.0); WHITE BLOOD COUNT 27.7 x10^3/uL (4.8-10.8)
[2023-03-03 19:06] LABS: ABNORMAL LYMPHS % (MANUAL) 0 %
[2023-03-03 19:17] LABS: ALBUMIN 5.1 g/dL (3.2-5.5); ALBUMIN/GLOBULIN RATIO 0.9 (1.0-2.2); BILIRUBIN,TOTAL 0.5 mg/dL (0.2-1.0); CREATININE 3.5 mg/dL (0.4-1.0); TOTAL PROTEIN 10.8 g/dL (6.7-8.2)
[2023-03-03 19:19] LABS: POTASSIUM 7.1 mmol/L (3.5-5.0)
[2023-03-03 19:31] LABS: BAND NEUTROPHILS % (MANUAL) 1 %; EOSINOPHILS # (MANUAL) 0.3 10^3/uL (0-0.7); LYMPHOCYTES # (MANUAL) 2.2 10^3/uL (1.5-3.5); LYMPHOCYTES % (MANUAL) 8 %; MONOCYTES # (MANUAL) 2.5 10^3/uL (0.0-1.0); NEUTROPHILS # (MANUAL) 22.7 10^3/uL (1.5-6.6)
[2023-03-03 19:32] LABS: DIFFERENTIAL COMMENT MANUAL DIFFERENTIAL; PLATELET ESTIMATE, MANUAL NORMAL (130-450,000) (NORMAL); PLATELET MORPHOLOGY RARE GIANT PLATELETS (NORMAL); WBC MORPHOLOGY (MULTIPLE) 1+ TOXIC GRANULATION (NORMAL)
--- NOTE | 2023-03-03 19:33 | ED Physician Documentation ---
PD HPI ABD PAIN - Stated complaint Stated Complaint: BODY PX/DEHYDRATION - Chief complaint Chief Complaint: Abd Pain - History obtained from History obtained from: Patient - Additional information Additional information: Patient complains of abdominal pain, generalized but predominantly left lower quadrant. This been associate with nausea and vomiting. Pain began 1 to 2 days ago. The patient has a history of multiple small bowel obstructions due to scleroderma. Patient has a complicated past surgical history which includes extensive bowel resection, "removed all of my intestines except a foot and a half" (per patient). At one time, she had 2 ostomies, now has only the one ostomy on the left side, although she says the right ostomy was never completely closed.She says she gets TPN every day, 20 hours in a 24-hour period.She lives in [place], and is visiting [facility]. Her stay has been prolonged beyond what she had expected, and thus she ran out of TPN 2 days ago. She thus had some solid food orally which, in the past, has resulted in exacerbations of these episodes (abdominal pain, nausea, vomiting).Denies fever. Review of Systems Constitutional: denies: Fever GI: reports: Abdominal Pain, Nausea, Vomiting PD PAST MEDICAL HISTORY - Past Medical History Cardiovascular: Hypertension Respiratory: None Neuro: None Endocrine/Autoimmune: None, Other GI: Other : None HEENT: None Psych: Anxiety Musculoskeletal: None Derm: Other - Past Surgical History Past Surgical History: Yes General: Bowel surgery, Gastric surgery, Other /FULL TIME PARAMEDIC: Tubal ligation HEENT: Tonsil/Adenoidectomy - Present Medications Home Medications: Ambulatory Orders Medication Instructions Recorded Confirmed Gabapentin [Neurontin] 900 mg PO 0900,1600,2100 10/02/18 05/09/21 Methotrexate Sodium/Pf 25 mg SUBQ Q7D 10/02/18 05/09/21 [Methotrexate 25 mg/ml Vial] Folic Acid 1 mg PO DAILY 02/07/21 05/09/21 Ursodiol [Hieu] 750 mg PO DAILY 02/07/21 05/09/21 Omeprazole Magnesium 20 mg PO DAILY 02/08/21 05/09/21 Venlafaxine [Effexor] 100 mg PO TID 02/08/21 05/09/21 oxyCODONE [Roxicodone] 10 mg PO BID PRN 02/08/21 05/09/21 Cholecalciferol (Vitamin D3) 50,000 unit PO DAILY 04/17/21 05/09/21 [Vitamin D3] Mirtazapine [Remeron] 15 mg PO QPM 04/17/21 05/09/21 ondansetron HCL [Zofran] 8 mg PO RTQ6H PRN 05/09/21 05/09/21 - Allergies Allergies/Adverse Reactions: Allergies Allergy/AdvReac Type Severity Reaction Status Date / Time No Known Drug Allergies Allergy Verified 12/07/21 16:45 - Social History Does the pt smoke?: No Smoking Status: Never smoker Does the pt drink ETOH?: No Does the pt have substance abuse?: No - Immunizations Immunizations are current?: Yes - POLST Patient has POLST: No POLST Status: Full Code PD ED PE NORMAL - Vitals Vital signs reviewed: Yes - General General: No acute distress, Well developed/nourished (drowsy but responds appropriately ) - HEENT HEENT: Other (dry mucous membranes) - Cardiac Cardiac: No murmur - Respiratory Respiratory: No respiratory distress, Clear bilaterally - Abdomen Abdomen: Soft PD ED PE EXPANDED - Cardiac Cardiac: Tachy, Regular Rhythm - Abdomen Abdomen: Tender to palpation, LLQ. No: Rebound Results - Vitals Vitals: Vital Signs - 24 hr 03/03/23 03/03/23 03/03/23 17:46 21:00 23:00 Temperature 36.3 C L 35.9 C L Heart Rate 112 H 103 H 90 Respiratory 14 15 17 Rate Blood Pressure 140/108 H 135/100 H 137/97 H O2 Saturation 96 97 94 03/04/23 03/04/23 00:52 02:30 Temperature Heart Rate 97 98 Respiratory 14 19 Rate Blood Pressure 123/88 H 131/93 H O2 Saturation 100 100 Oxygen O2 Source Room air - EKG (time done) No standard instances EKG releavant findings:: EKG personally interpreted by author of this note. Relevant findings are: Rate: Rate (enter#) (107) Rhythm: Sinus tachycardia [place]: LAD, Anterior hemiblock Intervals: Normal ME QRS: Normal Ischemia: Normal ST segments, Q waves (V1, V2) Compare to prior EKG: Old EKG unavailable - Labs Labs: Laboratory Tests 03/03/23 03/03/23 03/03/23 18:53 18:53 19:53 WBC 27.7 H RBC 5.45 H Hgb 13.0 Hct 41.8 MCV 76.7 L MCH 23.9 L MCHC 31.1 L RDW 18.6 H Plt Count 481 H MPV 9.4 Neut # (Auto) Not Reportable Lymph # (Auto) Not Reportable Emanuel # (Auto) Not Reportable Eos # (Auto) Not Reportable Baso # (Auto) Not Reportable Absolute Nucleated RBC Not Reportable Total Counted 100 Band Neuts % (Manual) 1 Abnorm Lymph % (Manual) 0 Nucleated RBC % Not Reportable Neutrophils # (Manual) 22.7 H Lymphocytes # (Manual) 2.2 Monocytes # (Manual) 2.5 H Eosinophils # (Manual) 0.3 Basophils # (Manual) 0.0 Differential Comment MANUAL DIFFERENTIAL WBC Morphology 1+ TOXIC GRANULATION Platelet Estimate NORMAL (130-450,000) Platelet Morphology RARE GIANT PLATELETS RBC Morph Micro Appear 1+ MICROCYTOSIS Sodium 124 L Potassium 7.1 H* 7.0 H* Chloride 90 L Carbon Dioxide 19 L Anion Gap 15.0 H BUN 72 H Creatinine 3.5 H Estimated GFR (MDRD) 16 L Glucose 123 H Calcium 10.0 Total Bilirubin 0.5 AST 34 ALT 18 Alkaline Phosphatase 134 H Total Protein 10.8 H Albumin 5.1 Globulin 5.7 H Albumin/Globulin Ratio 0.9 L Lipase 47 SARS-CoV-2 (PCR) 03/03/23 03/03/23 22:52 23:44 WBC RBC Hgb Hct MCV MCH MCHC RDW Plt Count MPV Neut # (Auto) Lymph # (Auto) Emanuel # (Auto) Eos # (Auto) Baso # (Auto) Absolute Nucleated RBC Total Counted Band Neuts % (Manual) Abnorm Lymph % (Manual) Nucleated RBC % Neutrophils # (Manual) Lymphocytes # (Manual) Monocytes # (Manual) Eosinophils # (Manual) Basophils # (Manual) Differential Comment WBC Morphology Platelet Estimate Platelet Morphology RBC Morph Micro Appear Sodium 128 L Potassium 4.4 Chloride 100 L Carbon Dioxide 18 L Anion Gap 10.0 BUN 61 H Creatinine 2.1 H Estimated GFR (MDRD) 30 L Glucose 98 Calcium 8.8 Total Bilirubin AST ALT Alkaline Phosphatase Total Protein Albumin Globulin Albumin/Globulin Ratio Lipase SARS-CoV-2 (PCR) NOT DETECTED - Rads (name of study) CT A/P Relevant Findings:: Prelim report reviewed, See rad report PD Medical Decision Making - ED course Complexity details: reviewed old records, reviewed results, re-evaluated patient, considered differential, d/w patient, d/w family ED course: The most concerning finding on brannon's CBC is a white blood cell count of 27.7. On the ER abdominal panel, she has a critically high potassium level at 7.1. The repeat potassium level is drawn and this confirms the initial result (the repeat is 7.0). Also noted are hyponatremia (sodium of 124), and significantly elevated BUN and creatinine (72 and 3.5, respectively). Looking at previous results in [facility] records (the most recent results prior to brannon that I have available in [facility] are from November 2021), her previous creatinine levels have been normal. She is given 2 L of normal saline IV as a bolus, followed by 150 mL/h of normal saline maintenance fluids. She is given 1 mg IV Dilaudid with a second dose during ED stay, and a third dose just prior to transfer. She is also given 10 mg of intravenous Compazine; she indicates to me that this has been helpful in the past with her nausea/vomiting. She says she also often has an NG tube placed for these episodes; I told her that I can order an NG tube and the nurse can place it, but that typically it can be avoided with small bowel obstruction provided the symptoms are controllable, particularly the nausea/vomiting. She defers to me regarding NG tube placement, and during her long ED stay, she did not have any recurrence of the vomiting and thus an NG tube was not placed during this stay. CT of the abdomen pelvis is performed without any contrast; IV contrast not given due to high BUN/creatinine (and thus low GFR), And patient indicates to me that she feels very strongly that she would not be able to tolerate any p.o. contrast. The CT scan is interpreted by the radiologist as "diffuse dilation of bowel. Bilateral ostomies. Findings are worse compared to 12/07/2021, today also involving the duodenum, representing obstruction and/or pseudoobstruction." There are no concerning findings on the EKG to correlate with the severe hyperkalemia, except peaked T waves V3, V4. She is given calcium gluconate intravenously, as well as 10 units of regular insulin followed by 50 mL of D50 (25 g of dextrose IV). These are given for cardioprotection and intracellular shift of potassium, respectively. The CT findings that are suggestive of a small bowel obstruction contraindicate a potassium binding solution such as Kayexalate. Forced diuresis via furosemide or similar medication could potentially worsen the BUN/creatinine. Thus, this is a potentially complicated situation given the combination of the gastrointestinal issue, the hyperkalemia, and the elevated BUN/creatinine. I believe patient would be most appropriate for transfer to a higher level of care at this point. I discussed the findings on the labs and the CT with the patient and my recommendation to transfer and she agrees with transfer. 10:30 PM: case d/w with on-call physician for [facility], will call me back regarding bed availability at appropriate facility. 11:30 PM: I was contacted by [facility]; they have spoken with staff at [facility], and the request is that I repeat the potassium before they consider transfer to their facility. I thus ordered BMP The repeat BMP shows potassium level has now normalized (4.4), although BUN and creatinine remain elevated (61, 21 respectively) and hyponatremia, though i mproved, persists (sodium 128). This new admission was then relayed to [facility] ([facility]), and subsequently I heard back from [facility] and informed that the patient had been excepted for transfer to [facility]. Departure - Departure Disposition: 02 Transfer Acute Care Hosp Clinical Impression: Small bowel obstruction, Scleroderma involving bowel, Hyperkalemia, Acute kidney injury Condition: Stable Discharge Date/Time: 03/04/23 02:41
[2023-03-03] MEDS ORDERED: HYDROmorphone 1 MG/ML CARPUJECT IVP STA ×2 (19:38→23:14)
[2023-03-03] MEDS ORDERED: SODIUM CHLORIDE 0.9% 1,000 ML IV STA ×3 (19:38→23:14)
[2023-03-03] MEDS ORDERED: PROCHLORPERAZINE 10 MG/2 ML VIAL IVP STA (19:39)
[2023-03-03] MEDS ORDERED: iohexoL-300 100 ML VIAL ONE (20:12)
[2023-03-03] MEDS ORDERED: CALCIUM GLUC 1,000MG/50ML-NACL 1,000 MG/50 ML BAG IV STA (20:24)
[2023-03-03] MEDS ORDERED: DEXTROSE 50% ABBOJECT 25 GM/50 ML SYRINGE IVP STA (20:25)
[2023-03-03] MEDS ORDERED: INSULIN REGULAR HUMAN 100 UNIT/1 ML 10 ML MDV IVP STA (20:25)
[2023-03-03] MEDS ORDERED: CALCIUM GLUC 1,000MG/50ML-NACL 1,000 MG/50 ML BAG IV ONE (20:43)
--- NOTE | 2023-03-03 20:45 | CT Report ---
PROCEDURE: ABDOMEN/PELVIS WO INDICATIONS: abd. pain TECHNIQUE: Noncontrast 5 mm thick sections acquired from the diaphragms to the symphysis. 5 mm coronal and sagi ttal reformats were then performed. For radiation dose reduction, the following was used: automated exposure control, adjustment of mA and/or kV according to patient size. COMPARISON: 12/07/2021 FINDINGS: Image quality: There is some motion artifact Lower chest: Basal scarring/atelectasis, possible small component airspace disease as well. Similar f luid and postsurgical changes in the distal esophagus and gastroesophageal junction. Solid organs: Evaluation is limited in the absence of intravenous contrast. The liver is unremarkable . No splenomegaly. Gallbladder is unremarkable. No pathologic dilation of the biliary tree or pancrea tic duct. Similar thickening of the adrenals. No hydronephrosis. Vessels and lymph nodes: No evidence of abdominal aortic aneurysm. No pathologic adenopathy by size c riteria. 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 Bilateral ostomies. Overall moderate distention of bowel loops, with hyperdense material distally. Distention also involves the proximal duodenum. Overall extent appears worse compared to J anuary 2021. Body wall: No abscess or hematoma identified. Pelvis: Reproductive organs are not well evaluated on CT, overall unremarkable. Bones: New height loss at the anterior portion of the L2 vertebral body. Height loss of T12 and L4 ar e similar to prior. IMPRESSION: Diffuse dilation of bowel. Bilateral ostomies. Findings are worse compared to 12/07/2021, today also i nvolving the duodenum, representing obstruction and/or pseudoobstruction. Possible basilar airspace disease and atelectasis. New height loss at the L2 vertebral body compared to 2 imaging. Evaluation is limited on noncontrast imaging. Other findings as above. Reviewed by: Salvatore Carlson MD on 03/03/2023 8:44 PM PDT Approved by: Salvatore Carlson MD on 03/03/2023 8:44 PM PDT Station ID: [id number]
[2023-03-03 23:56] LABS: CALCIUM 8.8 mg/dL (8.5-10.3); CREATININE 2.1 mg/dL (0.4-1.0); POTASSIUM 4.4 mmol/L (3.5-5.0)
[2023-03-04] MEDS ORDERED: HYDROmorphone 1 MG/ML CARPUJECT IVP STA (02:27)
[2023-03-04 02:36] VITALS: BP 131/93
== END 2023-03-04 02:41 | disposition short-term general hospital (02) ==
LOC: ED 17:36
DX: K56.609 Unspecified intestinal obstruction, unspecified as to partial versus complete obstruction (principal); E87.5 Hyperkalemia; E87.1 Hypo-osmolality and hyponatremia; N17.9 Acute kidney failure, unspecified; M34.9 Systemic sclerosis, unspecified; Z20.822 Contact with and (suspected) exposure to COVID-19
CPT/HCPCS: 36415; 74176; 80048; 80053; 83690; 84132; 85025; 87635; 93005; 96361; 96365; 96375; 96376; 99285; J1170; J1815